=== PATIENT | female | born 1965 | race Caucasian/White ===

== ENCOUNTER 2017-10-08 10:52 | Emergency (ER) | payer OTHER ==
[2017-10-08] MEDS ORDERED: Aspirin Low Dose CHEW TAB* 81 MG PO ONE (11:16)
[2017-10-08] MEDS ORDERED: Ondansetron INJ* 2 MG/ML VIAL IV ONE (11:46)
[2017-10-08] MEDS ORDERED: Morphine INJ* 4 MG/ML 1 ML CARPUJECT IV ONE (11:47)
[2017-10-08 11:48] LABS: ABS Basophils 0.1 10^3/ul (0-0.2); ABS Eosinophils 0.1 10^3/ul (0-0.6); ABS Lymphocytes 2.3 10^3/ul (1.0-4.8); ABS Monocytes 0.4 10^3/ul (0-0.8); ABS Neutrophils 2.3 10^3/ul (1.5-7.7); ABS Nucleated RBC 0 10^3/ul; Eosinophil % 1.3 % (0-6); Hematocrit 39 % (35-47); Hemoglobin 13.1 g/dl (12.0-16.0); Lymphocyte % 45.1 % (25-47); Mean Corpuscular HGB Conc 34 g/dl (31-36); Mean Corpuscular Hemoglobin 29 pg (27-31); Mean Corpuscular Volume 87 fL (80-97); Mean Platelet Volume 7 um3 (7.4-10.4); Nucleated Red Blood Cells % 0; Platelet Count 368 10^3/ul (150-450); Red Blood Count 4.47 10^6/ul (4.0-5.4); Red Cell Distribution Width 15 % (10.5-15); White Blood Count 5.2 10^3/ul (3.5-10.8)
[2017-10-08 12:23] LABS: EGFR Non-African American 83.1 (>60)
--- NOTE | 2017-10-08 12:35 | RAD ---
HISTORY: Chest pain COMPARISONS: December 26, 2010 VIEWS: 1: frontal portable view of the chest at 12:10 PM FINDINGS: LINES AND TUBES: None. CARDIOMEDIASTINAL SILHOUETTE: The cardiomediastinal silhouette is normal for portable technique. PLEURA: The costophrenic angles are sharp. No pleural abnormalities are noted. LUNG PARENCHYMA: The lungs are clear. ABDOMEN: The upper abdomen is clear. There is no subphrenic gas. BONES AND SOFT TISSUES: No bone or soft tissue abnormalities are noted. IMPRESSION: NO ACTIVE CARDIOPULMONARY DISEASE.
[2017-10-08] MEDS ORDERED: HYDROcodone/ACETAMIN 5-325 MG* 1 TAB PO ONE (15:46)
[2017-10-08 15:56] VITALS: BP 140/82
--- NOTE | 2017-10-08 22:35 | ED ---
Jeffery Lerma Stephanie, scribed for Lizzeth Romero MD on 10/08/17 at 1141 . HPI Chest Pain - HPI Summary HPI Summary: The pt is a 51 y/o F presenting to the ED with c/o chest pain that began this morning. The pt woke up this morning with pain and swelling over the L chest, below the breast. She describes the pain as sharp pain that is worse with movement and feels like a rib is poking her on the left chest. The pt has previously had a biopsy of the L breast which she wonders if this is the cause of the pain, but the biopsy was more than a year ago. The pt medicated with prescribed Vicodin [facility]. Symptoms include abd pain, nausea, diaphoresis and SOB. The pt denies vomiting. Pt was first interviewed in [facility] area in the ED and did not provide hx of use of cocaine on 10/06/17 until after she spoke with the nurse in private. Pt states she does not usually use cocaine. - History of Current Complaint Chief Complaint: EDChestPainROMI Time Seen by Provider: 10/08/17 11:14 Hx Obtained From: Patient, Family/Statistical Machine Servicer - Onset/Duration: Started Hours Ago - upon waking this morning Timing: Constant Initial Severity: Severe Current Severity: Severe Pain Intensity: 8 Pain Scale Used: 0-10 Numeric Chest Pain Location: Discrete at: - L side of chest, Left Anterior Chest Pain Radiates: No Character: Sharp/Stabbing Aggravating Factor(s): Position, Movement Alleviating Factor(s): Nothing Associated Signs and Symptoms: Positive: Chest Pain - L side of chest and below breast, Shortness of Breath, Nausea, Abdominal Pain, Edema. Negative: Vomiting Related History: Similar Episode/Dx as: - pain that began about 1 year ago related to left breast - Allergy/Home Medications Allergies/Adverse Reactions: Allergies Allergy/AdvReac Type Severity Reaction Status Date / Time No Known Allergies Allergy Verified 10/08/17 11:01 PMH/Surg Hx/FS Hx/Imm Hx Previously Healthy: No Cardiovascular History: Denies: Other Cardiovascular Problems/Disorders Respiratory History: Denies: Other Respiratory Problems/Disorders History: Denies: Other Problems/Disorders Musculoskeletal History: Reports: Hx Arthritis - SPINE Sensory History: Reports: Hx Contacts or Glasses - READING GLASSES Denies: Hx Hearing Aid Opthamlomology History: Reports: Hx Contacts or Glasses - READING GLASSES Neurological History: Denies: Other Neuro Impairments/Disorders Psychiatric History: Reports: Hx Anxiety - NO MEDS - Cancer History Hx Chemotherapy: No Hx Radiation Therapy: No - Surgical History Surgery Procedure, Year, and Place: 2007 D&C- [facility]. 2015, CERVICAL POLYPS, [facility] Hx Anesthesia Reactions: No Infectious Disease History: No Infectious Disease History: Denies: Traveled Outside the [place] in Last 30 Days - Family History Known Family History: Positive: Other - Bladder cancer in brother. Denies cardiac disease in family - Social History Lives: With Family Alcohol Use: Occasionally Alcohol Amount: 5 Hx Substance Use: Yes Substance Use Type: Reports: Cocaine, Marijuana Substance Use Comment - Amount & Last Used: 2 week -08/01/17 Hx Tobacco Use: Yes Smoking Status (MU): Heavy Every Day Tobacco Smoker Type: Cigarettes Amount Used/How Often: 1 PPD FOR 30 YRS Length of Time of Smoking/Using Tobacco: 30 YRS Have You Smoked in the Last Year: Yes Review of Systems Constitutional: Negative Positive: Chest Pain Positive: Shortness Of Breath Positive: Abdominal Pain, Nausea. Negative: Vomiting Skin: Negative Neurological: Negative Psychological: Normal All Other Systems Reviewed And Are Negative: Yes Physical Exam Triage Information Reviewed: Yes Vital Signs On Initial Exam: Initial Vitals Temp Pulse Resp BP Pulse Ox 97.7 F 79 16 151/97 97 10/08/17 11:02 10/08/17 11:02 10/08/17 11:02 10/08/17 11:02 10/08/17 11:02 Vital Signs Reviewed: Yes Appearance: Positive: Well-Nourished, Ill-Appearing, Pain Distress Skin: Positive: Warm, Skin Color Reflects Adequate Perfusion Head/Face: Positive: Normal Head/Face Inspection Eyes: Positive: Conjunctiva Clear ENT: Positive: Normal ENT inspection Neck: Positive: Supple Respiratory/Lung Sounds: Positive: Clear to Auscultation, Breath Sounds Present , Other - no respiratory distress; Bilateral breasts without masses, no dimpling , no nipple discharge Cardiovascular: Positive: RRR, Pulses are Symmetrical in both Upper and Lower Extremities - pulses nml, brisk capillary refill Abdomen Description: Positive: Nontender, Soft Bowel Sounds: Positive: Present Musculoskeletal: Positive: Strength/ROM Intact - no calf tenderness, no edema Neurological: Positive: Alert, Oriented to Person Place, Time, CN Intact II-III , Other - Motor function 5/5, sensation intact, gait WNL, Psychiatric: Positive: Normal Diagnostics - Vital Signs Vital Signs Temp Pulse Resp BP Pulse Ox 10/08/17 11:02 97.7 F 79 16 151/97 97 - Laboratory Lab Results: Lab Results 10/08/17 10/08/17 10/08/17 Range/Units 11:40 11:40 11:40 WBC (3.5-10.8) 10^3/ul RBC (4.0-5.4) 10^6/ul Hgb (12.0-16.0) g/dl Hct (35-47) % MCV (80-97) fL MCH (27-31) pg MCHC (31-36) g/dl RDW (10.5-15) % Plt Count (150-450) 10^3/ul MPV (7.4-10.4) um3 Neut % (Auto) (38-83) % Lymph % (Auto) (25-47) % [place] % (Auto) (1-9) % Eos % (Auto) (0-6) % Baso % (Auto) (0-2) % Absolute Neuts (auto) (1.5-7.7) 10^3/ul Absolute Lymphs (auto) (1.0-4.8) 10^3/ul Absolute Monos (auto) (0-0.8) 10^3/ul Absolute Eos (auto) (0-0.6) 10^3/ul Absolute Basos (auto) (0-0.2) 10^3/ul Absolute Nucleated RBC 10^3/ul Nucleated RBC % INR (Anticoag Therapy) 0.90 (0.77-1.02) APTT 31.1 (26.0-36.3) seconds D-Dimer, Quantitative < 200 (Less Than 230) ng/mL Sodium 134 (133-145) mmol/L Potassium 3.7 (3.5-5.0) mmol/L Chloride 102 (101-111) mmol/L Carbon Dioxide 26 (22-32) mmol/L Anion Gap 6 (2-11) mmol/L BUN 10 (6-24) mg/dL Creatinine 0.74 (0.51-0.95) mg/dL Est GFR ( Amer) 106.8 (>60) Est GFR (Non-Af Amer) 83.1 (>60) BUN/Creatinine Ratio 13.5 (8-20) Glucose 134 H (70-100) mg/dL Lactic Acid (0.5-2.0) mmol/L Calcium 9.7 (8.6-10.3) mg/dL Magnesium 2.0 (1.9-2.7) mg/dL Total Bilirubin 0.20 (0.2-1.0) mg/dL AST 11 L (13-39) U/L ALT 7 (7-52) U/L Alkaline Phosphatase 84 (34-104) U/L Total Creatine Kinase 55 (10-223) U/L CK-MB (CK-2) 1.1 (0.6-6.3) ng/mL Troponin I 0.00 (<0.04) ng/mL B-Natriuretic Peptide 17 ( - 100) pg/mL Total Protein 7.1 (6.4-8.9) g/dL Albumin 4.0 (3.2-5.2) g/dL Globulin 3.1 (2-4) g/dL Albumin/Globulin Ratio 1.3 (1-3) TSH 1.75 (0.34-5.60) mcIU/mL Thyroxine (T4) 8.54 (6.09-12.23) mcg/mL 10/08/17 10/08/17 10/08/17 Range/Units 11:40 11:40 14:06 WBC 5.2 (3.5-10.8) 10^3/ul RBC 4.47 (4.0-5.4) 10^6/ul Hgb 13.1 (12.0-16.0) g/dl Hct 39 (35-47) % MCV 87 (80-97) fL MCH 29 (27-31) pg MCHC 34 (31-36) g/dl RDW 15 (10.5-15) % Plt Count 368 (150-450) 10^3/ul MPV 7 L (7.4-10.4) um3 Neut % (Auto) 45.0 (38-83) % Lymph % (Auto) 45.1 (25-47) % [place] % (Auto) 7.2 (1-9) % Eos % (Auto) 1.3 (0-6) % Baso % (Auto) 1.4 (0-2) % Absolute Neuts (auto) 2.3 (1.5-7.7) 10^3/ul Absolute Lymphs (auto) 2.3 (1.0-4.8) 10^3/ul Absolute Monos (auto) 0.4 (0-0.8) 10^3/ul Absolute Eos (auto) 0.1 (0-0.6) 10^3/ul Absolute Basos (auto) 0.1 (0-0.2) 10^3/ul Absolute Nucleated RBC 0 10^3/ul Nucleated RBC % 0 INR (Anticoag Therapy) (0.77-1.02) APTT (26.0-36.3) seconds D-Dimer, Quantitative (Less Than 230) ng/mL Sodium (133-145) mmol/L Potassium (3.5-5.0) mmol/L Chloride (101-111) mmol/L Carbon Dioxide (22-32) mmol/L Anion Gap (2-11) mmol/L BUN (6-24) mg/dL Creatinine (0.51-0.95) mg/dL Est GFR ( Amer) (>60) Est GFR (Non-Af Amer) (>60) BUN/Creatinine Ratio (8-20) Glucose (70-100) mg/dL Lactic Acid 1.4 (0.5-2.0) mmol/L Calcium (8.6-10.3) mg/dL Magnesium (1.9-2.7) mg/dL Total Bilirubin (0.2-1.0) mg/dL AST (13-39) U/L ALT (7-52) U/L Alkaline Phosphatase (34-104) U/L Total Creatine Kinase (10-223) U/L CK-MB (CK-2) (0.6-6.3) ng/mL Troponin I 0.00 (<0.04) ng/mL B-Natriuretic Peptide ( - 100) pg/mL Total Protein (6.4-8.9) g/dL Albumin (3.2-5.2) g/dL Globulin (2-4) g/dL Albumin/Globulin Ratio (1-3) TSH (0.34-5.60) mcIU/mL Thyroxine (T4) (6.09-12.23) mcg/mL Result Diagrams: 10/08/17 11:40 10/08/17 11:40 Lab Statement: Any lab studies that have been ordered have been reviewed, and results considered in the medical decision making process. - Radiology CXR Xray Interpretation: No Acute Changes Radiology Interpretation Completed By: Radiologist - NO ACTIVE CARDIOPULMONARY DISEASE. - EKG 11:13 EKG Rhythm: Sinus Rhythm - [address] Segment: Non-Specific Ectopy: None EKG Interpretation: nml AV IV CT, nml QTc, nml, axis, no acute changes. Non- STEMI EKG Comparison: No Significant Change - c/w 04/13/15 Chest Pain Course/Dx - Course Course Of Treatment: Trop x 2 normal, EKG nonSTEMI. The patient is diagnosed with chest pain and tobacco abuse disorder. She will be discharged home. Pt dispensed norco x 2 for home use, since she used more than she should have of her usual norco prescribed for chronic back pain. - Chest Pain Differential Diagnosis/HQI/PQRI: Acute MA, ACS, Angina, Chest Wall, Lower Respiratory Infection, Pulmonary Embolism - Diagnoses Provider Diagnoses: Chest pain, Substance abuse, Tobacco abuse disorder Discharge - Discharge Plan Condition: Fair Disposition: HOME Patient Education Materials: Chest Pain (ED), How to Stop Smoking (ED) Referrals: Keven Katz MD [Primary Care Provider] - Additional Instructions: RETURN TO URGENT CARE FOR ANY NEW OR WORSENING SYMPTOMS. The documentation as recorded by the Jeffery munguia Stephanie accurately reflects the service I personally performed and the decisions made by , Lizzeth Romero MD.
== END 2017-10-08 15:54 | disposition home or self-care (01) ==
LOC: ED 10:52
DX: R07.9 Chest pain, unspecified (principal); F14.10 Cocaine abuse, uncomplicated; F12.10 Cannabis abuse, uncomplicated; F17.210 Nicotine dependence, cigarettes, uncomplicated
CPT/HCPCS: 36415; 71045; 80053; 82550; 82553; 83605; 83735; 83880; 84436; 84443; 84484; 85025; 85379; 85610; 85730; 93005; 96374; 96375; 99283; A9270-GY; J2270; J2405

== ENCOUNTER 2018-10-10 13:33 | Emergency (ER) | payer OTHER ==
--- OUTSIDE RECORDS SUMMARY | 2018-10-10 13:52 | XMS REPORT | Continuity of Care Document ---
:1965 External Reference #:[id number] Author Name Ashely Sheffield Care Team Providers Name Role Phone Keven Katz MD Primary Care Physician Unavailable Payers Type Date Identification Numbers Payment Provider Subscriber Effective: 2017 Policy Number: [id number] Blyn Debbie Connelly Group Number: [id number] [address] PayID: [id number] [place] [address] Effective: 2013 Policy Number: [id number] [employer] Shahzad Ferreira Expires: 2016 Group Number: [id number] [address] PayID: [id number] [place] [address] Expires: 2017 Policy Number: [id number] Medicaid Debbie Connelly Group Name: 1 1 [address] PayID: [id number] [place] [address] Advance Directives Type Date Description Status Comment Other Directive 05/16/2017 Health Care Agent Current and Verified Problems Date Description Provider Status Onset: 05/02/2017 Low back pain Keven Katz M.D. Active Onset: 05/02/2017 Neck pain Keven Katz M.D. Active Onset: 06/17/2017 Mild recurrent major depression Keven Katz M.D. Active Onset: 05/26/2018 Acute gastritis Keven Katz M.D. Active Onset: 09/05/2018 Sprain of shoulder and upper arm Otoniel Abdalla MD Active Onset: 08/14/2018 Essential hypertension Keven Katz M.D. Active Onset: 08/14/2018 Anxiety state Keven Katz M.D. Active Family History Date Family Member(s) Problem(s) Comments General Diabetes General Cancer Siblings 1 bladder cancer Social History Type Date Description Comments Sex Unknown Marital Status 2 Times living with Lives With spouse Occupation Unemployed Tobacco Use Start: Unknown Current Cigarette started at about Smoker 1 Pack Daily age 15 Smoking Status Reviewed: 09/26/18 Current Cigarette started at about Smoker 1 Pack Daily age 15 ETOH Use Denies alcohol use Tobacco Use Start: Unknown Heavy tobacco smoker (more than 10 cigarettes/day) Recreational Drug Use Denies Drug Use Exercise Type/Frequency Does not exercise Allergies, Adverse Reactions, Alerts Description No Known Drug Allergies Medications Medication Date Status Form Strength Qnty SIG Indications Ordering Provider Amitriptyline 09/26 Active Tablets 25mg 60tab one by mouth M54.5 Silvia HCL s in the Ricardo, evening for one week, then 2 tabs at bedtime Cartia XT 09/26 Active Caps ER 240mg 30cap one po daily I10 24HR s MD Davion Sertraline HCL 09/26 Active Tablets 100mg 30tab 1 by mouth F41.9 s every day MD Davion Hydrocodone-William 09/02 Active Tablets 5-325mg 120ta 1 tab every M54.5 taminophen bs 6h as needed Davion for pain Flonase Allergy 06/11 Active Suspension 50mcg/Act 15.80 one spray in J06.9 Keven Relief 0ml each nostril Pachikara 1-2 times , M.D. daily. Acetaminophen 05/26 Active Tablets 500mg 180ta 2 tab 3 M54.5 Keven /2017 bs times daily Pachikara as needed , M.D. Pantoprazole 05/[address] 40mg 30tab 1 in the K29.00 Keven Sodium s morning Pachikara empty , M.D. stomach Bupropion HCL 06/17 Active Tablets ER 300mg 30tab take one F33.0 [place] ER (XL) 24HR s tablet by Pachikara mouth every , M.D. morning Cartia XT 09/02 Hx Caps ER 180mg 30cap once daily I10 24HR s Sterling - Cassius 09/26 Losartan 08/14 Hx Tablets 50mg 30tab 1 by mouth I10 s every day Sterling - SarathDTom 09/02 Sertraline HCL 08/14 Hx Tablets 50mg 30tab Take One F41.9 s Tablet By Pachikara - Mouth Every , M.D. Metronidazole 07/11 Hx Gel 0.75% 45gm one applicator Gilda, - per vagina MD 09/02 daily x days Guaifenesin ER 06/11 Hx Tablets ER 1200mg 30tab Take by J06.9 Shmuel 12HR s mouth every DTom Argueta, - morning and M.D.,FACP 09/02 evening not taking cough syrup. Guaifenesin-Cod 06/11 Hx Solution 100-10mg/ 1000m take 15 J06.9 Shelly Jamison ei 5ML l milliliters D. Ellie, - every 4 M.D.,FACP 09/02 hours needed for cough at night. Hydrocodone-William 02/12 Hx Tablets 5-325mg 60tab 1 tab every M54.5 [place] taminophen s 12h as Pachikara - needed. , M.D. 09/02 Prednisone 01/08 Hx Tablets 5mg 28tab taper dose R05 Lesley s start with 7 Montgomery, - tabs (35mg) PILOT CAN ROUTER 02/12 and by one tab each in the morning, 6,5,4,3,2,1 Bupropion HCL 12/16 Hx Tablets ER 150mg 30tab once daily F33.0 [place] ER (XL) 24HR s in the Pachikara - morning with , M.D. 02/12 Tramadol HCL 12/16 Hx Tablets 50mg 30tab three times M54.5 s a day as Pachikara - needed , M.D. 02/12 Meloxicam 11/14 Hx Tablets 15mg 60tab 1 by mouth S46.012A Lesley /2017 s every day Montgomery, - for pain. PILOT CAN ROUTER 02/12 take with food. do not take ibuprofen while taking this Diclofenac 11/[address] 75mg 60tab take 1 S46.012A Lesley Sodium s tablet twice Montgomery, - a day with PILOT CAN ROUTER 01/08 food Bupropion HCL 05/16 Hx Tablets ER 150mg 30tab one by mouth M54.5 [place] ER ( 12HR s every day Pachikara Det) - , M.D. 06/17 Clindamycin HCL 05/15 Hx Capsules 150mg 40cap four times a Keven /2016 s day x 10 Pachikara - days , M.D. 08/08 Ibuprofen Hx Capsules 200mg as needed Unknown /0000 - 02/12 Acetaminophen Hx Tablets 500mg 2 tabs 3 Unknown Extra Strength /0000 times daily - as needed 03/20 for pain Hydrocodone-William Hx Tablets 5-325mg 90tab take one [place] taminophen / s tablet by Pachikara - mouth every , M.D. 12/16 8 hours needed; maximum daily dose=3 Ibuprofen Hx Capsules 200mg as needed Unknown /0000 - 05/26 Medications Administered in Office Medication Date Status Form Strength Qnty SIG Indications Ordering Provider Triamcinolone 09/05/ Administered Injection Zaneb (Kenalog) 2017 MD Lianne Triamcinolone 11/14/ Administered Injection Lorraine (Kenalog) 2017 WEN Torres Immunizations CPT Code Status Date Vaccine Lot # [id number] Given 07/03/2018 Influenza Virus Vaccine, Quadrivalent, Split, [id number] Preservative Free [id number] Given 06/17/2017 Influenza Virus Vaccine, Quadrivalent, Split, [id number] Preservative Free Vital Signs Date Vital Result Comment 09/26/2018 11:01am Height 64 inches 5'4" Weight 143.00 lb Heart Rate 68 /min BP Systolic Sitting 150 mmHg BP Diastolic Sitting 82 mmHg Body Temperature 97.9 F O2 % BldC Oximetry 96 % BMI (Body Mass Index) 24.5 kg/m2 09/05/2018 8:57am Height 64 inches 5'4" Weight 146.00 lb BP Systolic 134 mmHg BP Diastolic 70 mmHg Respiratory Rate 18 /min Pain Level 9 BMI (Body Mass Index) 25.1 kg/m2 09/02/2018 1:21pm Height 64 inches 5'4" Weight 146.00 lb Heart Rate 73 /min BP Systolic 154 mmHg BP Diastolic 92 mmHg Body Temperature 98.1 F O2 % BldC Oximetry 96 % BMI (Body Mass Index) 25.1 kg/m2 08/14/2018 3:43pm Height 64 inches 5'4" Weight 144.00 lb Heart Rate 84 /min BP Systolic Sitting 150 mmHg L arm BP Diastolic Sitting 100 mmHg L arm BP Systolic Standing 160 mmHg R arm BP Diastolic Standing 105 mmHg R arm Body Temperature 97.0 F O2 % BldC Oximetry 98 % BMI (Body Mass Index) 24.7 kg/m2 07/03/2018 1:08pm Height 64 inches 5'4" Weight 142.00 lb Heart Rate 72 /min BP Systolic 142 mmHg BP Diastolic 98 mmHg O2 % BldC Oximetry 97 % BMI (Body Mass Index) 24.4 kg/m2 06/11/2018 8:47am Height 64 inches 5'4" Weight 143.00 lb Heart Rate 73 /min BP Systolic Sitting 150 mmHg BP Diastolic Sitting 88 mmHg Body Temperature 97.6 F O2 % BldC Oximetry 97 % BMI (Body Mass Index) 24.5 kg/m2 05/26/2018 8:10am Height 64 inches 5'4" Weight 144.00 lb Heart Rate 69 /min BP Systolic Sitting 160 mmHg BP Diastolic Sitting 98 mmHg Body Temperature 96.3 F O2 % BldC Oximetry 98 % BMI (Body Mass Index) 24.7 kg/m2 03/20/2018 8:31am Height 64 inches 5'4" Weight 140.00 lb Heart Rate 77 /min BP Systolic Sitting 124 mmHg BP Diastolic Sitting 80 mmHg Body Temperature 96.7 F O2 % BldC Oximetry 97 % BMI (Body Mass Index) 24.0 kg/m2 02/12/2018 9:40am Height 64 inches 5'4" Weight 149.00 lb Heart Rate 83 /min BP Systolic 160 mmHg BP Diastolic 95 mmHg O2 % BldC Oximetry 98 % BMI (Body Mass Index) 25.6 kg/m2 01/08/2018 9:54am Weight 144.00 lb Heart Rate 69 /min BP Systolic 132 mmHg BP Diastolic 85 mmHg Body Temperature 97.9 F O2 % BldC Oximetry 96 % 12/16/2017 12:55pm Height 66 inches 5'6" Weight 144.38 lb Heart Rate 68 /min BP Systolic Sitting 124 mmHg BP Diastolic Sitting 82 mmHg Body Temperature 98.2 F O2 % BldC Oximetry 98 % BMI (Body Mass Index) 23.3 kg/m2 11/14/2017 10:23am Height 66 inches 5'6" Weight 147.00 lb Heart Rate 68 /min BP Systolic 136 mmHg BP Diastolic 80 mmHg Respiratory Rate 18 /min Body Temperature 97.6 F Pain Level 7 BMI (Body Mass Index) 23.7 kg/m2 11/04/2017 3:18pm Weight 143.00 lb Heart Rate 71 /min BP Systolic Sitting 140 mmHg BP Diastolic Sitting 80 mmHg Body Temperature 97.9 F O2 % BldC Oximetry 97 % 09/20/2017 2:39pm Weight 143.00 lb Heart Rate 68 /min BP Systolic Sitting 138 mmHg BP Diastolic Sitting 88 mmHg Body Temperature 96.0 F O2 % BldC Oximetry 98 % 08/08/2017 9:42am Height 63.5 inches 5'3.50" Weight 146.12 lb Heart Rate 64 /min BP Systolic 152 mmHg BP Diastolic 90 mmHg Body Temperature 97.5 F O2 % BldC Oximetry 99 % BMI (Body Mass Index) 25.5 kg/m2 06/17/2017 2:56pm Height 63.5 inches 5'3.50" Weight 140.25 lb Heart Rate 81 /min BP Systolic 132 mmHg BP Diastolic 84 mmHg Body Temperature 97.8 F O2 % BldC Oximetry 98 % BMI (Body Mass Index) 24.5 kg/m2 05/16/2017 11:06am Height 63.5 inches 5'3.50" Weight 143.00 lb Heart Rate 73 /min BP Systolic Lying Down 142 mmHg repeated due to high reading BP Diastolic Lying Down 86 mmHg repeated due to high reading Body Temperature 97.1 F O2 % BldC Oximetry 98 % BMI (Body Mass Index) 24.9 kg/m2 05/16/2017 9:33am Height 63.5 inches 5'3.50" Weight 143.25 lb Heart Rate 73 /min BP Systolic Sitting 160 mmHg BP Diastolic Sitting 94 mmHg Body Temperature 97.1 F O2 % BldC Oximetry 98 % BMI (Body Mass Index) 25.0 kg/m2 05/02/2017 8:12am Height 64 inches 5'4" Weight 143.00 lb Heart Rate 70 /min BP Systolic 136 mmHg BP Diastolic 84 mmHg Body Temperature 97.8 F O2 % BldC Oximetry 99 % BMI (Body Mass Index) 24.5 kg/m2 02/02/2016 1:57pm Height 64 inches 5'4" Weight 124.00 lb Heart Rate 69 /min BP Systolic 132 mmHg BP Diastolic 80 mmHg Pain Level 10 BMI (Body Mass Index) 21.3 kg/m2 Results Test Date Facility Test Result H/L Range Note Laboratory test 07/03/2018 [facility] Cytology SEE RESULT [address] [place] [address] [phone] Drug Abuse 20 05/26/2018 [facility] Urine Amphetamine Negative [address] ng/[place] [address] [phone] Urine Barbiturates Negative ng/mL 3 Urine Benzodiazepines Negative ng/mL 4 Urine Cocaine Negative ng/mL 5 Urine Phencyclidine Negative ng/mL Cutoff: 25 Urine Tetrahydrocannabinol Negative ng/mL Cutoff: 50 6 Creatinine, Urine 7.9 mg/dL Specific [place] 1.001 7 pH 6.9 Oxidants Negative 8 Adulterants Comment Normal Codeine, Ur Not Detected ng/mL Cutoff: 25 9 Uhwqaqx-5-nolk-glucuronide, Ur Not Detected ng/mL 10 Morphine, Ur Not Detected ng/mL Cutoff: 25 11 Lpsglumc-3-clot-glucuronide, U Not Detected ng/mL 12 6-monoacetylmorphine, Ur Not Detected ng/mL Cutoff: 25 13 Hydrocodone, Ur Present ng/mL Abnormal Cutoff: 25 14 Norhydrocodone, Ur Present ng/mL Abnormal Cutoff: 25 15 Dihydrocodeine, Ur Not Detected ng/mL Cutoff: 25 16 Hydromorphone, Ur Not Detected ng/mL Cutoff: 25 17 Niebyslgjkqsq4ppqymhukzibotns Not Detected ng/mL 18 Oxycodone, Ur Not Detected ng/mL Cutoff: 25 19 Noroxycodone, Ur Not Detected ng/mL Cutoff: 25 20 Oxymorphone, Ur Not Detected ng/mL Cutoff: 25 21 Rjbwcepfyep-7-mecd-glucuronide Not Detected ng/mL 22 Noroxymorphone, Ur Not Detected ng/mL Cutoff: 25 23 Fentanyl, Ur Not Detected ng/mL Cutoff: 2 24 Norfentanyl, Ur Not Detected ng/mL Cutoff: 2 25 Meperidine, Ur Not Detected ng/mL Cutoff: 25 26 Normeperidine, Ur Not Detected ng/mL Cutoff: 25 27 Naloxone, Ur Not Detected ng/mL Cutoff: 25 28 Yuwejyvc-5-jxby-glucuronide, U Not Detected ng/mL 29 Methadone, Ur Not Detected ng/mL Cutoff: 25 30 Eddp, Ur Not Detected ng/mL Cutoff: 25 31 Propoxyphene, Ur Not Detected ng/mL Cutoff: 25 32 Norpropoxyphene, Ur Not Detected ng/mL Cutoff: 25 33 Tramadol, Ur Not Detected ng/mL Cutoff: 25 34 O-desmethyltramadol, Ur Not Detected ng/mL Cutoff: 25 35 Tapentadol, Ur Not Detected ng/mL Cutoff: 25 36 N-desmethyltapentadol, Ur Not Detected ng/mL Cutoff: 50 37 Bteiekzpwj-ldvp-iutkgoruust, U Not Detected ng/mL 38 Buprenorphine, Ur Not Detected ng/mL Cutoff: 5 39 Norbuprenorphine, Ur Not Detected ng/mL Cutoff: 5 40 Norbuprenorphine glucuronide Not Detected ng/mL Cutoff: 20 41 Opioid Interpretation See Comment 42 Laboratory test 10/08/2017 [facility] Troponin-I (TnI) 0.00 ng/ mL <0.[address] [place] [address] [phone] Laboratory test 10/08/2017 [facility] B-Type 17 pg/mL [address] [place] [address] Peptide BNP [phone] Lactic Acid 1.4 mmol/L N 0.5-2.0 44 Inr/Protime 10/08/2017 [facility] Inr 0.90 N 0.77-1.[address] [place] [address] [phone] Laboratory test 10/08/2017 [facility] Partial 31.1 seconds N 26.0-36.[address] [place] [address] PTT [phone] D Dimer Quantitative < 200 ng/mL N Less Than 230 45 CBC Auto Diff 10/08/2017 [facility] White Blood 5.2 10^3/uL N 3.5-10.[address] [place] [address] [phone] Red Blood Count 4.47 10^6/uL N 4.0-5.4 Hemoglobin 13.1 g/dL N 12.0-16.0 Hematocrit 39 % N 35-47 Mean Corpuscular Volume 87 fL N 80-97 Mean Corpuscular Hemoglobin 29 pg N 27-31 Mean Corpuscular HGB Conc 34 g/dL N 31-36 Red Cell Distribution Width 15 % N 10.5-15 Platelet Count 368 10^3/uL N 150-450 Mean Platelet Volume 7 um3 Low 7.4-10.4 Abs Neutrophils 2.3 10^3/uL N 1.5-7.7 Abs Lymphocytes 2.3 10^3/uL N 1.0-4.8 Abs Monocytes 0.4 10^3/uL N 0-0.8 Abs Eosinophils 0.1 10^3/uL N 0-0.6 Abs Basophils 0.1 10^3/uL N 0-0.2 Abs Nucleated RBC 0 10^3/uL Granulocyte % 45.0 % N 38-83 Lymphocyte % 45.1 % N 25-47 Monocyte % 7.2 % N 1-9 Eosinophil % 1.3 % N 0-6 Basophil % 1.4 % N 0-2 Nucleated Red Blood Cells % 0 Laboratory test 10/08/2017 [facility] Troponin-I (TnI) 0.00 ng/ mL <0.04 finding [address] [place] [address] [phone] CKMB 10/08/2017 [facility] CKMB ng/mL 1.1 ng/mL N 0.6-6.3 [place] [address] [phone] Laboratory test 10/08/2017 [facility] Magnesium 2.0 mg/dL N 1.9-2.7 [place] [address] [phone] Creatine Kinase(CK) 55 U/L N 10-223 TSH (Thyroid Stim Horm) 1.75 mcIU/mL N 0.34-5.60 Comp Metabolic Panel 10/08/2017 [facility] Sodium 134 mmol/L N [address] [place] [address] [phone] Potassium 3.7 mmol/L N 3.5-5.0 Chloride 102 mmol/L N 101-111 Co2 Carbon Dioxide 26 mmol/L N 22-32 Anion Gap 6 mmol/L N 2-11 Glucose 134 mg/dL High 70-100 Blood Urea Nitrogen 10 mg/dL N 6-24 Creatinine 0.74 mg/dL N 0.51-0.95 BUN/Creatinine Ratio 13.5 N 8-20 Calcium 9.7 mg/dL N 8.6-10.3 Total Protein 7.1 g/dL N 6.4-8.9 Albumin 4.0 g/dL N 3.2-5.2 Globulin 3.1 g/dL N 2-4 Albumin/Globulin Ratio 1.3 N 1-3 Total Bilirubin 0.20 mg/dL N 0.2-1.0 Alkaline Phosphatase 84 U/L N 34-104 Alt 7 U/L N 7-52 Ast 11 U/L Low 13-39 Egfr Non- 83.1 >60 Egfr 106.8 >60 46 Laboratory 10/08/2017 [facility] Thyroxine 8.54 N 6.09-12.23 test finding 101 g/[place] [address] [phone] Laboratory 08/01/2017 [facility] Cytology SEE RESULT 47, [address] [employer] [place] [address] [phone] Comp Metabolic 05/04/2017 [facility] Sodium 135 mmol/L N 133- [address] [place] [address] [phone] Potassium 4.4 mmol/L N 3.5-5.0 Chloride 104 mmol/L N 101-111 Co2 Carbon Dioxide 27 mmol/L N 22-32 Anion Gap 4 mmol/L N 2-11 Glucose 78 mg/dL N 70-100 Blood Urea Nitrogen 13 mg/dL N 6-24 Creatinine 0.68 mg/dL N 0.51-0.95 BUN/Creatinine Ratio 19.1 N 8-20 Calcium 9.0 mg/dL N 8.6-10.3 Total Protein 6.6 g/dL N 6.4-8.9 Albumin 3.8 g/dL N 3.2-5.2 Globulin 2.8 g/dL N 2-4 Albumin/Globulin Ratio 1.4 N 1-3 Total Bilirubin 0.30 mg/dL N 0.2-1.0 Alkaline Phosphatase 71 U/L N 34-104 Alt 9 U/L N 7-52 Ast 13 U/L N 13-39 Egfr Non- 91.6 N >60 Egfr 117.8 N >60 49 Lipid Profile 05/04/2017 [facility] Triglycerides 238 mg/dL N 50 (Trig/Chol/HDL) [address] [place] [address] [phone] Cholesterol 214 mg/dL N 51 HDL Cholesterol 42.3 mg/dL N 52 LDL Cholesterol 124 mg/dL N 53 Drug Abuse 05/02/2017 [facility] Urine Amphetamine Negative ng/ mL N 54, 55 20 Urine [address] [place] [address] [phone] Urine Barbiturates Negative ng/mL N 56 Urine Benzodiazepines Negative ng/mL N 57 Urine Cocaine Negative ng/mL N 58 Urine Phencyclidine Negative ng/mL N Cutoff: 25 Urine Tetrahydrocannabinol Presumptive Posi <SEE NOTE> ng/mL N Cutoff: 50 59 Creatinine, Urine 51.4 mg/dL N Specific [place] 1.005 N pH 6.9 N Oxidants Negative N 60 Adulterants Comment Normal N Codeine, Ur Not Detected ng/mL N Cutoff: 25 61 Wntixxo-2-bhmj-glucuronide, Ur Not Detected ng/mL N 62 Morphine, Ur Not Detected ng/mL N Cutoff: 25 63 Oimkvfvo-3-tklv-glucuronide, U Not Detected ng/mL N 64 6-monoacetylmorphine, Ur Not Detected ng/mL N Cutoff: 25 65 Hydrocodone, Ur Not Detected ng/mL N Cutoff: 25 66 Norhydrocodone, Ur Not Detected ng/mL N Cutoff: 25 67 Dihydrocodeine, Ur Not Detected ng/mL N Cutoff: 25 68 Hydromorphone, Ur Not Detected ng/mL N Cutoff: 25 69 Hszjouditkwaf4pwxynwbnrtuoxzn Not Detected ng/mL N 70 Oxycodone, Ur Not Detected ng/mL N Cutoff: 25 71 Noroxycodone, Ur Not Detected ng/mL N Cutoff: 25 72 Oxymorphone, Ur Not Detected ng/mL N Cutoff: 25 73 Ezqtyltrfzd-6-xikl-glucuronide Present ng/mL N 74 Noroxymorphone, Ur Not Detected ng/mL N Cutoff: 25 75 Fentanyl, Ur Not Detected ng/mL N Cutoff: 2 76 Norfentanyl, Ur Not Detected ng/mL N Cutoff: 2 77 Meperidine, Ur Not Detected ng/mL N Cutoff: 25 78 Normeperidine, Ur Not Detected ng/mL N Cutoff: 25 79 Naloxone, Ur Not Detected ng/mL N Cutoff: 25 80 Rimwlzwp-8-ecbb-glucuronide, U Not Detected ng/mL N 81 Methadone, Ur Not Detected ng/mL N Cutoff: 25 82 Eddp, Ur Not Detected ng/mL N Cutoff: 25 83 Propoxyphene, Ur Not Detected ng/mL N Cutoff: 25 84 Norpropoxyphene, Ur Not Detected ng/mL N Cutoff: 25 85 Tramadol, Ur Not Detected ng/mL N Cutoff: 25 86 O-desmethyltramadol, Ur Not Detected ng/mL N Cutoff: 25 87 Tapentadol, Ur Not Detected ng/mL N Cutoff: 25 88 N-desmethyltapentadol, Ur Not Detected ng/mL N Cutoff: 50 89 Zdiikykock-yqpy-jdgszypdrmz, U Not Detected ng/mL N 90 Buprenorphine, Ur Not Detected ng/mL N Cutoff: 5 91 Norbuprenorphine, Ur Not Detected ng/mL N Cutoff: 5 92 Norbuprenorphine glucuronide Not Detected ng/mL N Cutoff: 20 93 Opioid Interpretation See Comment N 94 THC Confirmation 05/02/2017 [facility] Urine Carboxy 157 ng/mL N [address] THC Confirm [place] [id number] [phone] Urine THC Interpretation Positive. N 96 1 SEE RESULT BELOW Name: DEBBIE CONNELLY : [address]: Teddy Vo MD Acct: [id number] Unit: [id number] AGE: 52 Location: [facility] Re07/03/18 SEX: F Status: REG REF SPEC: [id number] WILLIAM: 07/03/[address]: Teddy Vo MD REQ: [id number] RECD: 07/03/18 STATUS: SOUT _ ORDERED: TP IMAGE ANALYS, HPV/Thin Prep COMMENTS: [id number] Negative for Intraepithelial lesion or Malignancy Shift in henrry suggestive of bacterial vaginosis Date Time Test Result Flag (u) Normal Range 07/03/18 1335 @ HPV RNA POSITIVE An Negative @ @ The high-risk HPV types detected by the assay include: 16, @ 18, 31, 33, 35, 39, 45, 51, 52, 56, 58, 59, 66, and 68. A. Ectocervical/Endocervical Specimen Adequacy: Satisfactory of evaluation Transformation zone component identified Patient Information: HPV: High risk HPV RNA testing regardless of pap results. Actual Specimen Date: 07/03/18 ?: N Post Menopausal?: Y Hysterectomy?: N Signed by and Reported on: ZAK Saini(ASCP) [id number] This Pap test was evaluated with the assistance of the [employer] Technology[employer] Test Imaging System. Due to cytologic findings at the fountain pen turner microscope, comprehensive manual rescreening by a Circulation Worker may be required. The Pap Smear is a screening test designed to aid in the detection of premalignant and malignant conditions of the uterine cervix. It is not a diagnostic procedure and should not be used as the sole means of detecting cervical cancer. Both false- positive and false- negative reports do occur. Depending on your risk status, a Pap smear should be obtained and evaluated every 1-3 years. END OF REPORT DEPARTMENT OF PATHOLOGY, [address] [place] [address] Eugenio Mayberry M.D. Director HSINE # [id number] 2 REFERENCE VALUE Cutoff: 500 3 REFERENCE VALUE Cutoff: 200 4 REFERENCE VALUE Cutoff: 100 5 REFERENCE VALUE Cutoff: 150 6 ADDITIONAL INFORMATION This report is intended for use in clinical monitoring or management of patients. It is not intended for use in employment-related testing. 7 Manually Verified 8 REFERENCE VALUE Cutoff: 200 mg/L 9 Tylenol 3 10 Metabolite of codeine REFERENCE VALUE Cutoff: 100 11 Veronica Shaw, MS Contin; Also a minor metabolite (10%) of codeine and can be seen in low concentrations (<2,000 ng/mL) with poppy seed ingestion. 12 Metabolite of morphine REFERENCE VALUE Cutoff: 100 13 Metabolite of heroin 14 Lortab, Prentiss, Vicodin; Also a very minor metabolite of codeine and impurity (<1%) of oxycodone. 15 Metabolite of hydrocodone 16 Metabolite of hydrocodone 17 Dilaudid, Exalgo; Also a metabolite of hydrocodone and a minor (<5%) metabolite of morphine. 18 Metabolite of hydromorphone REFERENCE VALUE Cutoff: 100 19 Endocet, Percocet, Oxycontin 20 Metabolite of oxycodone 21 Numorphan, Opana; Also a metabolite of oxycodone. 22 Metabolite of oxymorphone REFERENCE VALUE Cutoff: 100 23 Metabolite of oxymorphone 24 Actiq, Duragesic, Fentora 25 Metabolite of fentanyl 26 Demerol 27 Metabolite of meperidine 28 Narcan 29 Metabolite of naloxone REFERENCE VALUE Cutoff: 100 30 Dolophine 31 Metabolite of methadone 32 Darvon, Darvocet 33 Metabolite of propoxyphene 34 Tradol, Ultram, Ultracet 35 Metabolite of tramadol 36 Nucynta 37 Metabolite of tapentadol 38 Metabolite of tapentadol REFERENCE VALUE Cutoff: 100 39 Buprenex, Suboxone 40 Metabolite of buprenorphine 41 Metabolite of buprenorphine 42 Test detected the presence of hydrocodone and one of its metabolites (norhydrocodone). Suspect use of hydrocodone within the past three days. ADDITIONAL INFORMATION This test was developed and its performance characteristics determined by [facility] in a manner consistent with CLIA requirements. This test has not been cleared or approved by the U.S. Food and Drug Administration. Test Performed by: [facility] - [address] [address] 43 >100 to <200 pg/mL: likely compensated congestive heart failure (CHF) 200 to 400 pg/mL: likely moderate CHF >400 pg/mL: likely moderate to severe CHF 44 [facility] Severe Sepsis and Septic Shock Management Bundle Measure requires all lactic acids initially measuring >2.0 mmol/L be repeated. 45 Please note: The following may produce a false positive D Dimer test: - Rheumatoid factor greater than 60 IU/ml - Plasma hemoglobin greater than 0.05 gm/dl - Bilirubin greater than 50 mg/dl - Lipids greater than 1000 mg/dl - FDP greater than 20 ug/ml 46 Because ethnic data is not always readily available, this report includes an eGFR for both -Americans and non- Americans. The National Kidney Disease Education Program (NKDEP) does not endorse the use of the MDRD equation for patients that are not between the ages of 18 and 70, are , have extremes of body size, muscle mass, or nutritional status, or are non- or non-. According to the National Kidney Foundation, irrespective of diagnosis, the stage of the disease is based on the level of kidney function: Stage Description GFR(mL/min/1.73 m(2)) 1 Kidney damage with normal or decreased GFR 90 2 Kidney damage with mild decrease in GFR 60-89 3 Moderate decrease in GFR 30-59 4 Severe decrease in GFR 15-29 5 Kidney failure <15 (or dialysis) 47 [id number] SEE RESULT BELOW Name: DEBBIE CONNELLY : [address]: Keven Katz MD Acct: [id number] Unit: [id number] AGE: 51 Location: [facility] Re08/01/17 SEX: F Status: REG REF SPEC: [id number] WILLIAM: 08/01/17- SUBM DR: Keven Katz MD REQ: [id number] RECD: 08/01/17 STATUS: CARYN WILLARD DR: Andrea Barnes MD _ ORDERED: NG THIN LAYER COMMENTS: [id number] FINAL DIAGNOSIS Breast, left @ 7 o'clock, fine needle aspiration: -- Scant benign apocrine epithelial elements, macrophages and inflammatory cells, compatible with benign cyst. Comment: Correlation with clinical and imaging findings as well as appropriate follow-up is recommended. BREAST LEFT - US GUIDED LEFT BREAST FINE NEEDLE ASPIRATION CLINICAL HISTORY Left breast 7 o'clock 1.7 cm complex lesion. 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 Director [facility] # [id number] Because ethnic data is not always readily available, this report includes an eGFR for both -Americans and non- Americans. The National Kidney Disease Education Program (NKDEP) does not endorse the use of the MDRD equation for patients that are not between the ages of 18 and 70, are , have extremes of body size, muscle mass, or nutritional status, or are non- or non-. According to the National Kidney Foundation, irrespective of diagnosis, the stage of the disease is based on the level of kidney function: Stage Description GFR(mL/min/1.73 m(2)) 1 Kidney damage with normal or decreased GFR 90 2 Kidney damage with mild decrease in GFR 60-89 3 Moderate decrease in GFR 30-59 4 Severe decrease in GFR 15-29 5 Kidney failure <15 (or dialysis) 50 Desirable <150 Borderline high 150-199 High 200-499 Very High >500 51 Desirable <200 Borderline high 200-239 High >239 52 Low <40 Desirable: 40-60 High: >60 53 Desirable: <100 mg/dL Near Optimal: 100-129 mg/dL Borderline High: 130-159 mg/dL High: 160-189 mg/dL Very High: >189 mg/dL 54 [id number] REFERENCE VALUE Cutoff: 500 56 REFERENCE VALUE Cutoff: 200 57 REFERENCE VALUE Cutoff: 100 58 REFERENCE VALUE Cutoff: 150 59 Presumptive Positive Drug confirmation to follow. Presumptive Positive means that the screening method is positive, but the test needs to be run by a confirmatory method before being finalized. ADDITIONAL INFORMATION This report is intended for use in clinical monitoring or management of patients. It is not intended for use in employment-related testing. 60 REFERENCE VALUE Cutoff: 200 mg/L 61 Tylenol 3 62 Metabolite of codeine REFERENCE VALUE Cutoff: 100 63 Avinza, Veronica, MS Contin; Also a minor metabolite (10%) of codeine and can be seen in low concentrations (<2,000 ng/mL) with poppy seed ingestion. 64 Metabolite of morphine REFERENCE VALUE Cutoff: 100 65 Metabolite of heroin 66 Lortab, Prentiss, Vicodin; Also a very minor metabolite of codeine and impurity (<1%) of oxycodone. 67 Metabolite of hydrocodone 68 Metabolite of hydrocodone 69 Dilaudid, Exalgo; Also a metabolite of hydrocodone and a minor (<5%) metabolite of morphine. 70 Metabolite of hydromorphone REFERENCE VALUE Cutoff: 100 71 Endocet, Percocet, Oxycontin 72 Metabolite of oxycodone 73 Numorphan, Opana; Also a metabolite of oxycodone. 74 Metabolite of oxymorphone REFERENCE VALUE Cutoff: 100 75 Metabolite of oxymorphone 76 Actiq, Duragesic, Fentora 77 Metabolite of fentanyl 78 Demerol 79 Metabolite of meperidine 80 Narcan 81 Metabolite of naloxone REFERENCE VALUE Cutoff: 100 82 Dolophine 83 Metabolite of methadone 84 Darvon, Darvocet 85 Metabolite of propoxyphene 86 Tradol, Ultram, Ultracet 87 Metabolite of tramadol 88 Nucynta 89 Metabolite of tapentadol 90 Metabolite of tapentadol REFERENCE VALUE Cutoff: 100 91 Buprenex, Suboxone 92 Metabolite of buprenorphine 93 Metabolite of buprenorphine 94 Test detected the presence of [id number]-glucuronide (metabolite of oxymorphone). Suspect use of oxymorphone within the past three days. ADDITIONAL INFORMATION This test was developed and its performance characteristics determined by [facility] in a manner consistent with CLIA requirements. This test has not been cleared or approved by the U.S. Food and Drug Administration. Test Performed by: [facility] - [address] [address] 95 REFERENCE VALUE Cutoff: 3.0 96 ADDITIONAL INFORMATION This report is intended for use in clinical monitoring and management of patients. It is not intended for use in employment-related testing. This test was developed and its performance characteristics determined by [facility] in a manner consistent with CLIA requirements. This test has not been cleared or approved by the U.S. Food and Drug Administration. Test Performed by: [facility] - [address] [address] Procedures Date Code Description Status 09/19/2018 [id number] Mammogram Completed 09/05/201839510 Inject/Drain Joint/Bursa Major W/O US Completed 11/14/201786005 Inject/Drain Joint/Bursa Major W/O US Completed 07/01/2017 [id number] Mammogram Completed 02/08/2010 [id number] Mammogram Completed Encounters Type Date Location Provider Dx Diagnosis Office Visit 09/05/2018 Orthopedic Otoniel Abdalla MD S46.012A Strain of 9:00a [facility] musc/tend the rotator cuff of left shoulder, init M25.512 Pain in left shoulder Office Visit 09/02/2018 1:20p [facility] Keven Pach[place]ara, F33.0 Major depressive Medicine - M.D. disorder, [address] recurrent, mild M54.5 Low back pain M25.512 Pain in left shoulder I10 Essential (primary) hypertension Office Visit 07/03/2018 1:00p [facility] Teddy Vo, Z01.411 Encntr for business analytics intern [facility] MD exam (general) (routine) w abnormal findings R10.30 Lower abdominal pain, unspecified Z12.31 Encntr screen mammogram for malignant neoplasm of breast R10.2 Pelvic and perineal pain Z23 Encounter for immunization Z11.51 Encounter for screening for human papillomavirus (HPV) Office Visit 06/11/2018 8:30a [facility] Internal Erica J06.9 Acute upper Medicine - [place], RPA-C respiratory Rd infection, unspecified Office Visit 05/26/2018 8:20a [facility] [place] M54.5 Low back pain Medicine - [place], Rd M.D. F33.0 Major depressive disorder, recurrent, mild K29.00 Acute gastritis without bleeding Office Visit 03/20/2018 8:40a [facility] [place] Pachikara, M54.5 Low back Medicine - [place] M.D. pain Rd F33.0 Major depressive disorder, recurrent, mild Office Visit 02/12/2018 9:40a [facility] Internal Keven Pachikara, M54.5 Low back Medicine - M.D. pain [place] F33.0 Major depressive disorder, recurrent, mild Office Visit 01/08/2018 9:50a [facility] Internal Medicine - Lesley Montgomery NP R[address] F17.210 Nicotine dependence, cigarettes, uncomplicated R06.2 Wheezing Office Visit 12/16/2017 1:00p [facility] Keven Pach[place], M54.5 Low back Medicine - [place] M.D. pain Rd R11.0 Nausea F33.0 Major depressive disorder, recurrent, mild F17.210 Nicotine dependence, cigarettes, uncomplicated Office Visit 11/14/2017 10:00a Orthopedic Otoniel Abdalla, M25.512 Pain in left [facility] S46.012A Strain of musc/tend the rotator cuff of left shoulder, init Office Visit 11/04/2017 3:10p [facility] Internal Lesley Montgomery, M54.5 Low back pain Medicine - [place] [address] S46.012A Strain of musc/tend the rotator cuff of left shoulder, init Office Visit 09/20/2017 2:40p [facility] Internal Keven Katz, M54.5 Low back Medicine - [place] M.D. pain Rd Office Visit 08/08/2017 9:40a [facility] Keven Katz, M54.5 Low back Medicine - [place] M.D. pain Rd F33.0 Major depressive disorder, recurrent, mild Office Visit 06/17/2017 3:00p [facility] Keven Katz, M54.5 Low back Medicine - [place] M.D[address] pain [address] M54.2 Cervicalgia F33.0 Major depressive disorder, recurrent, mild Z23 Encounter for immunization Office Visit 05/16/2017 9:30a [facility] Internal Lesley Montgomery, M54.5 Low back pain Medicine - [place] [address] F17.210 Nicotine dependence, cigarettes, uncomplicated Z00.00 Encntr for general adult medical exam w/o abnormal findings Office Visit 05/02/2017 8:40a [facility] Internal Keven Katz, M54.5 Low back Medicine - [place] M.D. pain [address] M54.2 Cervicalgia F17.210 Nicotine dependence, cigarettes, uncomplicated Z13.220 Encounter for screening for lipoid disorders Z13.1 Encounter for screening for diabetes mellitus Z12.31 Encntr screen mammogram for malignant neoplasm of breast Office Visit 02/02/2016 Orthopedic Roge Campos, S66.111A Strain flexor 2:00p [facility]/vargas/tend l idx [facility] fngr at s/hnd lv, init S93.411A Sprain of calcaneofibular ligament of right ankle, init Plan of Treatment Future Appointment(s):11/03/2018 2:20 pm - Silvia Ricardo MD at [facility] Internal Medicine - [address]10/21/2018 2:15 pm - Otoniel Abdalla MD at [facility]/15/2018 8:30 am - Chapis Rosenbaum MD at [facility]09/26/2018 - Silvia Ricardo, MDM54.5 Low back painNew Medication:Amitriptyline HCL 25 mg - one by mouth in the evening for one week, then 2 tabs at bedtimeReferral:Pain Clinic, Pain/Clinic/CTRFollow up:5 [id number] Essential (primary) hypertensionNew Medication:Cartia XT 240 mg - one po dailyComments:repeat BP left arm 180/80, we will increase CilaptS53.0 Major depressive disorder, recurrent, mild
[2018-10-10] MEDS ORDERED: LORazepam TAB(*) 1 MG PO ONE (16:08)
[2018-10-10] MEDS ORDERED: Ketorolac INJ* 60 MG/2 ML VIAL IM ONE (16:08)
[2018-10-10] MEDS ORDERED: predniSONE TAB* 10 MG PO ONE (16:08)
[2018-10-10 16:42] LABS: Urine Appearance Clear; Urine Bilirubin Negative (Negative); Urine Blood Negative (Negative); Urine Color Yellow; Urine Glucose Negative (Negative); Urine Ketones Negative (Negative); Urine Nitrite Negative (Negative); Urine Protein Negative (Negative); Urine Specific Gravity 1.014 (1.010-1.030); Urine Urobilinogen Negative (Negative)
[2018-10-10 17:11] VITALS: BP 178/92
--- NOTE | 2018-10-10 17:23 | ED ---
Back Pain - HPI Summary HPI Summary: Patient with a hx of chronic back pain presents to the ED with bilateral flank pain and midline back tenderness which is rated 9/10. She states this may be from her chronic back pain, however wants to assure she does not have a kidney infection. No history of kidney infection, kidney stones or frequent UTIs. Denies any fevers, sweats, chills. She is on chronic opioid pain medications at home which she states "is not touching the pain." She states she has tried heat, ibuprofen, positioning and stretching all without relief. Recent MRI last week shows no acute changes from previous MRI and she has a follow-up with Dr. Rosenbaum next week. Denies UTI symptoms. Denies saddle anesthesia, bladder or bowel dysfunction. Denies any numbness or tingling or foot drop. - History of Current Complaint Chief Complaint: EDFlankPain Stated Complaint: FLANK PAIN Time Seen by Provider: 10/10/18 15:59 Hx Obtained From: Patient Onset/Duration: Sudden Onset Onset/Duration: Started Hours Ago Timing: Constant Back Pain Location: Is Diffuse - throughout lower back Pain Intensity: 0 Pain Scale Used: 0-10 Numeric Character: Aching Alleviating Symptom(s): Rest, Position - Risk Factors AAA Risk Factors: Negative TAD Risk Factors: Negative Cauda Equina Risk Factors: Negative Epidural Abscess Risk Factors: Negative - Allergies/Home Medications Allergies/Adverse Reactions: Allergies Allergy/AdvReac Type Severity Reaction Status Date / Time No Known Allergies Allergy Verified 10/10/18 13:43 Home Medications: Home Medications Amitriptyline TAB* [Elavil TAB*] 50 mg PO BEDTIME 10/10/18 [History Confirmed ] BuPROPion XL* [Bupropion XL*] 300 mg PO QAM 10/10/18 [History Confirmed 10/10/18 ] HYDROcodone/ACETAMIN 5-325 MG* [[place] 5-325 TAB*] 1 tab PO Q6H PRN 10/10/18 [ History Confirmed 10/10/18] Pantoprazole TAB (NF) [Protonix TAB (NF)] 40 mg PO QAM 10/10/18 [History Confirmed 10/10/18] Sertraline* [Zoloft*] 100 mg PO DAILY 10/10/18 [History Confirmed 10/10/18] dilTIAZem HCl [Cartia Xt] 240 mg PO DAILY 10/10/18 [History Confirmed 10/10/18] PMH/Surg Hx/FS Hx/Imm Hx Previously Healthy: Yes Endocrine/Hematology History: Denies: Hx Diabetes Cardiovascular History: Denies: Hx Hypertension, Hx Pacemaker/ICD, Other Cardiovascular Problems/ Disorders Respiratory History: Denies: Other Respiratory Problems/Disorders History: Denies: Hx Renal Disease, Other Problems/Disorders Musculoskeletal History: Reports: Hx Arthritis - SPINE Sensory History: Reports: Hx Contacts or Glasses - READING GLASSES Denies: Hx Hearing Aid Opthamlomology History: Reports: Hx Contacts or Glasses - READING GLASSES Neurological History: Denies: Other Neuro Impairments/Disorders Psychiatric History: Reports: Hx Anxiety - NO MEDS Denies: Hx Panic Disorder - Cancer History Hx Chemotherapy: No Hx Radiation Therapy: No - Surgical History Surgery Procedure, Year, and Place: 2006 D&C- [facility] [place]. 2015, CERVICAL POLYPS, [facility] [place]. UTERINE ABLATION Hx Anesthesia Reactions: No Infectious Disease History: No Infectious Disease History: Denies: Traveled Outside the [place] in Last 30 Days - Family History Known Family History: Positive: Other - Bladder cancer in brother. Denies cardiac disease in family - Social History Occupation: Unemployed Lives: With Family Alcohol Use: Occasionally Alcohol Amount: 5 Hx Substance Use: Yes Substance Use Type: Reports: Marijuana Substance Use Comment - Amount & Last Used: 2 week -08/01/17 Hx Tobacco Use: Yes Smoking Status (MU): Heavy Every Day Tobacco Smoker Type: Cigarettes Amount Used/How Often: 1 PPD FOR 30 YRS Length of Time of Smoking/Using Tobacco: 30 YRS Have You Smoked in the Last Year: Yes Review of Systems Negative: Fever, Chills, Fatigue, Skin Diaphoresis Negative: Palpitations, Chest Pain Negative: Shortness Of Breath, Cough Genitourinary: Negative Positive: no symptoms reported, see HPI Positive: Arthralgia. Negative: Myalgia Skin: Negative All Other Systems Reviewed And Are Negative: Yes Physical Exam Triage Information Reviewed: Yes Vital Signs On Initial Exam: Initial Vitals Temp Pulse Resp BP Pulse Ox 97.8 F 86 16 194/109 98 10/10/18 13:39 10/10/18 13:39 10/10/18 13:39 10/10/18 13:39 10/10/18 13:39 Vital Signs Reviewed: Yes Appearance: Positive: Well-Appearing, Well-Nourished, Pain Distress Skin: Positive: Warm, Skin Color Reflects Adequate Perfusion Head/Face: Positive: Normal Head/Face Inspection Eyes: Positive: EOMI, MALATHI, Conjunctiva Clear Neck: Positive: Supple Respiratory/Lung Sounds: Positive: Clear to Auscultation, Breath Sounds Present Cardiovascular: Positive: RRR, Pulses are Symmetrical in both Upper and Lower Extremities Musculoskeletal: Positive: Pain @ - L4-S1 Neurological: Positive: Speech Normal Psychiatric: Positive: Normal, Affect/Mood Appropriate AVPU Assessment: Alert Diagnostics - Vital Signs Vital Signs Temp Pulse Resp BP Pulse Ox 10/10/18 17:10 97.9 F 88 18 178/92 96 10/10/18 16:32 18 10/10/18 13:39 97.8 F 86 16 194/109 98 - Laboratory Lab Results: Lab Results 10/10/18 Range/Units 16:10 Urine Color Yellow Urine Appearance Clear Urine pH 6.0 (5-9) Ur Specific Chambers 1.014 (1.010-1.030) Urine Protein Negative (Negative) Urine Ketones Negative (Negative) Urine Blood Negative (Negative) Urine Nitrate Negative (Negative) Urine Bilirubin Negative (Negative) Urine Urobilinogen Negative (Negative) Ur Leukocyte Esterase Negative (Negative) Urine Glucose Negative (Negative) Lab Statement: Any lab studies that have been ordered have been reviewed, and results considered in the medical decision making process. Back Pain Course/Dx - Course Course Of Treatment: During the course treatment, on physical examination, patient is tender to the L5-S1 lower spine without other tenderness to palpation of the spine otherwise. No CVA tenderness bilaterally. UA obtained which is negative. She is given a steroid and Toradol in the ED with a mild amount of relief. She will be discharged with this and will continue to follow up with Dr. Ortiz. This is likely an exacerbation or a flareup from her previous back injury and chronic pain. - Diagnoses Differential Diagnosis/HQI/PQRI: Positive: Strain, Sprain Provider Diagnoses: Chronic low back pain Discharge - Sign-Out/Discharge Documenting (check all that apply): Patient Departure - Discharge Plan Condition: Stable Disposition: HOME Prescriptions: Ketorolac TAB * [Toradol TAB *] 10 mg PO Q6H #16 tab predniSONE TAB* [Deltasone TAB*] 50 mg PO DAILY #5 tab MDD 1 Referrals: No Primary Care Phys,NOPCP [Primary Care Provider] - Additional Instructions: Prednisone once daily in the morning 5 days - start this medication tomorrow Toradol 4 times daily 4 days DID NOT TAKE IBUPROFEN OR OTHER NSAIDS WHILE TAKING THIS MEDICATION Follow-up with Dr. Rosenbaum as scheduled Use heat to the area - Billing Disposition and Condition Condition: STABLE Disposition: Home
== END 2018-10-10 17:10 | disposition home or self-care (01) ==
LOC: ED 13:33
DX: M54.5 Low back pain (principal); G89.29 Other chronic pain; F17.210 Nicotine dependence, cigarettes, uncomplicated
CPT/HCPCS: 81003; 96372; 99282; A9270-GY; J1885; J7512

== ENCOUNTER 2018-12-18 05:43 | Inpatient (IN) | payer OTHER ==
[~2018-12-18 05:43] MED LIST: Buffered Lidocaine 1% SYRIN* 1 ML/SYRINGE INTRADERM ONE
--- OUTSIDE RECORDS SUMMARY | 2018-12-18 05:47 | XMS REPORT | Continuity of Care Document ---
:1965 External Reference #:[id number] Author Name Dulce Miramontes Care Team Providers Name Role Phone Silvia Ricardo M.D. Primary Care Physician Unavailable Payers Date Identification Numbers Payment Provider Subscriber Effective: 2017 Policy Number: [id number] [place] Debbie Connelly Group Number: [id number] [address] PayID: [id number] [place] [address] Effective: 2013 Policy Number: [id number] [employer] Shhazadblair Ferreira Expires: 2016 Group Number: [id number] [address] PayID: [id number] [place] [address] Expires: 2017 Policy Number: [id number] Medicaid Debbie Connelly Group Name: 1 1 [address] PayID: [id number] [place] [address] Advance Directives Type Date Description Status Comment Other Directive 05/16/2017 Health Care Agent Current and Verified Problems Date Description Provider Status Onset: 05/02/2017 Low back pain Keven Katz M.D. Active Onset: 05/02/2017 Neck pain Keven Katz M.D. Active Onset: 06/17/2017 Mild recurrent major depression Keven Katz M.D. Active Onset: 05/26/2018 Acute gastritis Keven Katz M.D. Active Onset: 08/14/2018 Anxiety state Keven Katz M.D. Active Onset: 08/14/2018 Essential hypertension Keven Katz M.D. Active Onset: 09/05/2018 Strain of rotator cuff capsule Otoniel Abdalla MD Active Onset: 11/03/2018 Bicipital tenosynovitis Otoniel Abdalla MD Active Onset: 10/21/2018 Strain of rotator cuff capsule Otoniel Abdalla MD Resolved Resolved: 11/28/2018 Onset: 11/03/2018 Disorder of shoulder Otoniel Abdalla MD Resolved Resolved: 11/28/2018 Family History Date Family Member(s) Observation Comments General Diabetes General Cancer Father due to Accidental () - fall in SNF : (age 45 Mother due to Unknown when patient was age 14 Years) Causes Siblings 4 First Brother Bladder Cancer Social History Type Date Description Comments Sex Unknown Marital Status 2 Times living with Lives With spouse 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 Tobacco Use Start: Unknown Current Cigarette Smoker started at about 1 Pack Daily age 15 ETOH Use 11/28/2018 Denies alcohol use Recreational Drug Use Regularly uses Marijuana Tobacco Use Start: Unknown Light tobacco smoker (10 or fewer cigarettes/day) Smoking Status Reviewed: 12/09/18 Light tobacco smoker (10 or fewer cigarettes/day) Exercise Type/Frequency Does not exercise Allergies, Adverse Reactions, Alerts Description No Known Drug Allergies Medications Medication Date Status Form Strength Qnty SIG Indications Ordering Provider Oxycodone-Aceta 11/28 Active Tablets 7.5-325mg 90tab 1 by mouth M43.17 Shmuel min /2018 s every 4 D. Ellie, hours as Cassius,FACP needed Ventolin HFA 11/05 Active Aerosol 108(90Bas 8gm 2 by mouth J06.9 e) every 4 Ricardo, mcg/Act hours as MD needed Chantix 11/05 Active Tablets 0.5mg X 1pack follow F17.210 Silvia Starting 11 & 1 mg directions Ricardo, Rajat X 42 on the MD package Sertraline HCL 11/05 Active Tablets 100mg 45tab 1 and a half F41.9 s tablets by Ricardo, mouth every MD day Amitriptyline 09/26 Active Tablets 25mg 60tab one by mouth M54.5 s in the Ricardo, evening for one week, then 2 tabs at bedtime Cartia XT 09/26 Active Caps ER 240mg 30cap one by mouth I10 24HR s daily MD Davion Flonase Allergy 06/11 Active Suspension 50mcg/Act 15.80 one spray in J06.9 [place] 0ml each nostril Pachikara 1-2 times , M.D. daily. Acetaminophen 05/26 Active Tablets 500mg 180ta 2 tab 3 M54.5 bs times daily Pachikara as needed , M.D. Pantoprazole 05/[address] 40mg 30tab 1 in the K29.00 s morning villa Ricardo MD stomach Bupropion HCL 06/17 Active Tablets ER 300mg 30tab take one F33.0 Silvia ER (XL) 24HR s tablet by Davion mouth every MD morning Sertraline HCL 09/26 Hx Tablets 100mg 30tab 1 and a half F41.9 s tablets by Davion - mouth every Cartia XT 09/02 Hx Caps ER 180mg 30cap once daily I10 24HR s Sterling Bravo M.D. 09/26 Hydrocodone-William 09/02 Hx Tablets 5-325mg 100ta 1 tab every M43.17 taminophen bs 6h as needed Lawrence Ricardo for pain 11/28 Losartan 08/14 Hx Tablets 50mg 30tab 1 by mouth I10 s every day Sterling Bravo M.D. 09/02 Sertraline HCL 08/14 Hx Tablets 50mg 30tab Take One F41.9 s Tablet By Sterling - Mouth Every , M.DTom Metronidazole 07/11 Hx Gel 0.75% 45gm one [facility] applicator Gilda, - per vagina 09/02 daily x days Guaifenesin ER 06/11 Hx Tablets ER 1200mg 30tab Take by J06.9 Shmuel 12HR s mouth every DTom Argueta, - morning and M.D.,FACP 09/02 evening when not taking cough syrup. Guaifenesin-Cod 06/11 Hx Solution 100-10mg/ 1000m take 15 J06.9 Shelly estrada /2017 5ML l milliliters Erica Argueta, - every 4 M.D.,FACP 09/02 hours needed for cough at night. Hydrocodone-William 02/12 Hx Tablets 5-325mg 60tab 1 tab every M54.5 [place] taminophen /2017 s 12h as Pachikara - needed. , M.D. 09/02 Prednisone 01/08 Hx Tablets 5mg 28tab taper dose R05 Lesley s start with 7 Montgomery, - tabs (35mg) FAMILY WORKER 02/12 and by one tab each in the morning, 6,5,4,3,2,1 Bupropion HCL 12/16 Hx Tablets ER 150mg 30tab once daily F33.0 [place] ER (XL) 24HR s in the Pachikara - morning with , MTomD. 02/12 food Tramadol HCL 12/16 Hx Tablets 50mg 30tab three times M54.5 [place] /2017 s a day as Pachikara - needed , M.D. 02/12 Meloxicam 11/14 Hx Tablets 15mg 60tab 1 by mouth S46.012A Lesley s every day Montgomery, - for pain. FAMILY WORKER 02/12 take food. do not take ibuprofen while taking this Diclofenac 11/[address] 75mg 60tab take 1 S46.012A Lesley s tablet twice Montgomery, - a day with FAMILY WORKER 01/08 food Bupropion HCL 05/16 Hx Tablets ER 150mg 30tab one by mouth M54.5 Keven ER ( 12HR s every day Pachikara Det) - MTomDTom 06/17 Clindamycin HCL 05/15 Hx Capsules 150mg 40cap four times a [place] s day x 10 Pachikara - days , M.D. 08/08 Ibuprofen Hx Capsules 200mg as needed Unknown /0000 - 02/12 Acetaminophen Hx Tablets 500mg 2 tabs 3 Unknown Extra Strength /0000 times daily - as needed 03/20 for pain Hydrocodone-William Hx Tablets 5-325mg 90tab take one Keven taminophen /0000 s tablet by Pachikara - mouth every , M.D. 12/16 8 hours needed; maximum daily dose=3 Ibuprofen 00/00 Hx Capsules 200mg as needed Unknown /0000 - 05/26 Medications Administered in Office Medication Date Status Form Strength Qnty SIG Indications Ordering Provider Triamcinolone 09/05/ Administered Injection Zaneb (Kenalog) 2017 MD Lianne Triamcinolone 11/14/ Administered Injection Lorraine (Kenalog) 2017 WEN Torres Immunizations CPT Code Status Date Vaccine Lot # [id number] Given 07/03/2018 Influenza Virus Vaccine, Quadrivalent, Split, [id number] Preservative Free [id number] Given 06/17/2017 Influenza Virus Vaccine, Quadrivalent, Split, [id number] Preservative Free Vital Signs Date Vital Result Comment 12/09/2018 1:13pm Height 63 inches 5'3" Weight 152.00 lb BP Systolic Sitting 124 mmHg BP Diastolic Sitting 80 mmHg Pain Level 6 BMI (Body Mass Index) 26.9 kg/m2 11/28/2018 3:14pm Height 63 inches 5'3" Weight 152.00 lb with shoes Heart Rate 70 /min BP Systolic 142 mmHg BP Diastolic 84 mmHg O2 % BldC Oximetry 95 % BMI (Body Mass Index) 26.9 kg/m2 11/05/2018 11:20am Height 63 inches 5'3" Weight 149.00 lb Heart Rate 86 /min BP Systolic Sitting 110 mmHg large cuff left arm BP Diastolic Sitting 94 mmHg large cuff left arm Respiratory Rate 20 /min O2 % BldC Oximetry 95 % at rest on room air BMI (Body Mass Index) 26.4 kg/m2 11/04/2018 11:53am Height 63 inches 5'3" Weight 143.00 lb BP Systolic Sitting 130 mmHg BP Diastolic Sitting 70 mmHg Pain Level 7 BMI (Body Mass Index) 25.3 kg/m2 10/21/2018 2:17pm Height 63 inches 5'3" Weight 143.00 lb BP Systolic 131 mmHg BP Diastolic 82 mmHg Respiratory Rate 19 /min Pain Level 10 BMI (Body Mass Index) 25.3 kg/m2 10/15/2018 8:34am Height 64 inches 5'4" Weight 143.00 lb BP Systolic Sitting 140 mmHg BP Diastolic Sitting 82 mmHg Pain Level 8 BMI (Body Mass Index) 24.5 kg/m2 09/26/2018 11:01am Height 64 inches 5'4" Weight [...] Date Facility Test Result H/L Range Note Inr/Protime 12/11/2018 [facility] Inr 0.92 N 0.77-1.[address] [place] [address] [phone] Laboratory test 12/11/2018 [facility] Partial 33.4 seconds N 26.0-36.[address] [place] [address] PTT [phone] CBC No Diff 12/11/2018 [facility] White Blood 6.6 10^3/uL N 3.5-10.[address] [place] [address] [phone] Red Blood Count 4.70 10^6/uL N 4.00-5.40 Hemoglobin 13.9 g/dL N 12.0-16.0 Hematocrit 42 % N 35-47 Mean Corpuscular Volume 89 fL N 80-97 Mean Corpuscular Hemoglobin 30 pg N 27-31 Mean Corpuscular HGB Conc 33 g/dL N 31-36 Red Cell Distribution Width 15 % N 10.5-15 Platelet Count 440 10^3/uL N 150-450 Mean Platelet Volume 7.5 fL N 7.4-10.4 Urinalysis Profile 12/11/2018 [facility] Urine Color Yellow [address] [place] [address] [phone] Urine Appearance Cloudy Urine Specific [place] 1.017 N 1.010-1.030 Urine pH 5.0 N 5-9 Urine Urobilinogen Negative Negative Urine Ketones Negative Negative Urine Protein Negative Negative Urine Leukocytes Negative Negative Urine Blood Negative Negative Urine Nitrite Negative Negative Urine Bilirubin Negative Negative Urine Glucose Negative Negative Laboratory test 12/11/2018 [facility] HCG 2.94 mIU/mL [address] [place] [address] [phone] Basic Metabolic 12/11/2018 [facility] Sodium 138 mmol/L N 135- [address] [place] [address] [phone] Potassium 4.5 mmol/L N 3.5-5.0 Chloride 103 mmol/L N 101-111 Co2 Carbon Dioxide 28 mmol/L N 22-32 Anion Gap 7 mmol/L N 2-11 Glucose 94 mg/dL N 70-100 Blood Urea Nitrogen 11 mg/dL N 6-24 Creatinine 0.76 mg/dL N 0.51-0.95 BUN/Creatinine Ratio 14.5 N 8-20 Calcium 9.7 mg/dL N 8.6-10.3 Egfr Non- 79.9 >60 Egfr 96.7 >60 4 Type & Screen 12/11/2018 [facility] Patient Blood Type O Positive [address] [place] [address] [phone] Antibody Screen NEGATIVE Drug Abuse 11/05/2018 [facility] Urine Presumptive Abnormal 5, 6 20 [address]rine [address] [facility] [address] Amphetamine Posi <SEE NOTE> [place] [address] ng/mL [phone] Urine Barbiturates Negative ng/mL 7 Urine Benzodiazepines Negative ng/mL 8 Urine Cocaine Negative ng/mL 9 Urine Phencyclidine Negative ng/mL Cutoff: 25 Urine Tetrahydrocannabinol Presumptive Posi <SEE NOTE> Abnormal Cutoff: 50 10 ng/mL Creatinine, Urine 114.6 mg/dL Specific [place] 1.017 pH 6.0 Oxidants Negative 11 Adulterants Comment Normal Codeine, Ur Present ng/mL Abnormal Cutoff: 25 12 Ozdeonk-0-vxyc-glucuronide, Ur Present ng/mL Abnormal 13 Morphine, Ur Not Detected ng/mL Cutoff: 25 14 Cxxpuzuj-7-etyd-glucuronide, U Not Detected ng/mL 15 6-monoacetylmorphine, Ur Not Detected ng/mL Cutoff: 25 16 Hydrocodone, Ur Present ng/mL Abnormal Cutoff: 25 17 Norhydrocodone, Ur Present ng/mL Abnormal Cutoff: 25 18 Dihydrocodeine, Ur Present ng/mL Abnormal Cutoff: 25 19 Hydromorphone, Ur Not Detected ng/mL Cutoff: 25 20 Xlzktoqbqlqvn2pczarmymjvackoa Present ng/mL Abnormal 21 Oxycodone, Ur Present ng/mL Abnormal Cutoff: 25 22 Noroxycodone, Ur Present ng/mL Abnormal Cutoff: 25 23 Oxymorphone, Ur Present ng/mL Abnormal Cutoff: 25 24 Gxiuourcrcz-2-zkcm-glucuronide Present ng/mL Abnormal 25 Noroxymorphone, Ur Present ng/mL Abnormal Cutoff: 25 26 Fentanyl, Ur Not Detected ng/mL Cutoff: 2 27 Norfentanyl, Ur Not Detected ng/mL Cutoff: 2 28 Meperidine, Ur Not Detected ng/mL Cutoff: 25 29 Normeperidine, Ur Not Detected ng/mL Cutoff: 25 30 Naloxone, Ur Not Detected ng/mL Cutoff: 25 31 Waqmmcfg-3-jouy-glucuronide, U Not Detected ng/mL 32 Methadone, Ur Not Detected ng/mL Cutoff: 25 33 Eddp, Ur Not Detected ng/mL Cutoff: 25 34 Propoxyphene, Ur Not Detected ng/mL Cutoff: 25 35 Norpropoxyphene, Ur Not Detected ng/mL Cutoff: 25 36 Tramadol, Ur Not Detected ng/mL Cutoff: 25 37 O-desmethyltramadol, Ur Not Detected ng/mL Cutoff: 25 38 Tapentadol, Ur Not Detected ng/mL Cutoff: 25 39 N-desmethyltapentadol, Ur Not Detected ng/mL Cutoff: 50 40 Zteetjbjgh-essh-ugcxflgrrbv, U Not Detected ng/mL 41 Buprenorphine, Ur Not Detected ng/mL Cutoff: 5 42 Norbuprenorphine, Ur Not Detected ng/mL Cutoff: 5 43 Norbuprenorphine glucuronide Not Detected ng/mL Cutoff: 20 44 Opioid Interpretation See Comment 45 THC Confirmation 11/05/2018 [facility] Urine Carboxy 162 ng/mL [address] THC Confirm [place], [place] [id number] [phone] Urine THC Interpretation Positive. 47 Urine 11/05/2018 [facility] Urine Negative Cutoff: [address] Amphetamine by ng/[place] [address] GC/MS [phone] Urine Methamphetamine by GC/MS Negative ng/mL Cutoff: 25 Phentermine-by GC/MS Negative ng/mL Cutoff: 25 Pseudoephedrine/Ephedr GC/MS Negative ng/mL Cutoff: 25 Mda(Ecstacy metabolite) GC/MS See Comment ng/mL Cutoff: 25 48 Mdma(Ecstacy)-by GC/MS Negative ng/mL Cutoff: 25 Urine Amphetamines Interp See Comment 49 Laboratory test 07/03/2018 [facility] Cytology SEE RESULT [address] [place] [address] [phone] Drug Abuse 20 05/26/2018 [facility] Urine Amphetamine Negative ng/mL [address] [place], [place] [id number] [phone] Urine Barbiturates Negative ng/mL 52 Urine Benzodiazepines Negative ng/mL 53 Urine Cocaine Negative ng/mL 54 Urine Phencyclidine Negative ng/mL Cutoff: 25 Urine Tetrahydrocannabinol Negative ng/mL Cutoff: 50 55 Creatinine, Urine 7.9 mg/dL Specific [place] 1.001 56 pH 6.9 Oxidants Negative 57 Adulterants Comment Normal Codeine, Ur Not Detected ng/mL Cutoff: 25 58 Refizgd-1-zvxy-glucuronide, Ur Not Detected ng/mL 59 Morphine, Ur Not Detected ng/mL Cutoff: 25 60 Yxuieowr-5-eqrp-glucuronide, U Not Detected ng/mL 61 6-monoacetylmorphine, Ur Not Detected ng/mL Cutoff: 25 62 Hydrocodone, Ur Present ng/mL Abnormal Cutoff: 25 63 Norhydrocodone, Ur Present ng/mL Abnormal Cutoff: 25 64 Dihydrocodeine, Ur Not Detected ng/mL Cutoff: 25 65 Hydromorphone, Ur Not Detected ng/mL Cutoff: 25 66 Leomcukcxwpjl8gjejfsodtsifioe Not Detected ng/mL 67 Oxycodone, Ur Not Detected ng/mL Cutoff: 25 68 Noroxycodone, Ur Not Detected ng/mL Cutoff: 25 69 Oxymorphone, Ur Not Detected ng/mL Cutoff: 25 70 Qhambycofbg-8-qttm-glucuronide Not Detected ng/mL 71 Noroxymorphone, Ur Not Detected ng/mL Cutoff: 25 72 Fentanyl, Ur Not Detected ng/mL Cutoff: 2 73 Norfentanyl, Ur Not Detected ng/mL Cutoff: 2 74 Meperidine, Ur Not Detected ng/mL Cutoff: 25 75 Normeperidine, Ur Not Detected ng/mL Cutoff: 25 76 Naloxone, Ur Not Detected ng/mL Cutoff: 25 77 Xtuetfmh-3-mllc-glucuronide, U Not Detected ng/mL 78 Methadone, Ur Not Detected ng/mL Cutoff: 25 79 Eddp, Ur Not Detected ng/mL Cutoff: 25 80 Propoxyphene, Ur Not Detected ng/mL Cutoff: 25 81 Norpropoxyphene, Ur Not Detected ng/mL Cutoff: 25 82 Tramadol, Ur Not Detected ng/mL Cutoff: 25 83 O-desmethyltramadol, Ur Not Detected ng/mL Cutoff: 25 84 Tapentadol, Ur Not Detected ng/mL Cutoff: 25 85 N-desmethyltapentadol, Ur Not Detected ng/mL Cutoff: 50 86 Hrtxjenyja-pjfn-eydiimjewaz, U Not Detected ng/mL 87 Buprenorphine, Ur Not Detected ng/mL Cutoff: 5 88 Norbuprenorphine, Ur Not Detected ng/mL Cutoff: 5 89 Norbuprenorphine glucuronide Not Detected ng/mL Cutoff: 20 90 Opioid Interpretation See Comment 91 Laboratory test 10/08/2017 [facility] Troponin-I (TnI) 0.00 ng/ mL <0.[address] [place] [address] [phone] Laboratory test 10/08/2017 [facility] B-Type 17 pg/mL [address] [place] [address] Peptide BNP [phone] Lactic Acid 1.4 mmol/L N 0.5-2.0 93 Inr/Protime 10/08/2017 [facility] Inr 0.90 N 0.77-1.[address] [place] [address] [phone] Laboratory test 10/08/2017 [facility] Partial 31.1 seconds N 26.0-36.[address] [place] [address] PTT [phone] D Dimer Quantitative < 200 ng/mL N Less Than 230 94 CBC Auto Diff 10/08/2017 [facility] White Blood 5.2 10^3/uL N 3.5-10.[address] [place] [address] [phone] Red Blood Count 4.47 10^6/uL N 4.0-5.4 [...] Blood Cells % 0 Laboratory test 10/08/2017 [facility] Troponin-I 0.00 ng/mL < 0.[address] (TnI) [place] [address] [phone] CKMB 10/08/2017 [facility] CKMB ng/mL 1.1 ng/mL N 0.6-6.[address] [place] [address] [phone] Laboratory test 10/08/2017 [facility] Thyroxine 8.54 N 6.09- 12.[address] g/[place] [address] [phone] Laboratory test 10/08/2017 [facility] Magnesium 2.0 mg/dL N 1.9-2.[address] [place] [address] [phone] Creatine Kinase(CK) 55 U/L N 10-223 TSH (Thyroid Stim Horm) 1.75 mcIU/mL N 0.34-5.60 Comp Metabolic Panel 10/08/2017 [facility] Sodium 134 mmol/L N 133-[address] [place] [address] [phone] Potassium 3.7 mmol/L N 3.5-5.0 Chloride 102 [...] Egfr Non- 83.1 >60 Egfr 106.8 >60 95 Laboratory test 08/01/2017 [facility] Cytology SEE RESULT 96, [address] [place] [address] [phone] Comp Metabolic 05/04/2017 [facility] Sodium 135 mmol/L N 133- [address] [place] [address] [phone] Potassium 4.4 mmol/L N 3.5-5.0 Chloride 104 [...] 91.6 N >60 Egfr 117.8 N >60 98 Lipid Profile 05/04/2017 [facility] Triglycerides 238 mg/dL N 99 (Trig/Chol/HDL) [address] [place] [address] [phone] Cholesterol 214 mg/dL N 100 HDL Cholesterol 42.3 mg/dL N 101 LDL Cholesterol 124 mg/dL N 102 THC Confirmation 05/02/2017 [facility] Urine Carboxy 157 ng/mL N 103, [address] [place] [address] [phone] Urine THC Interpretation Positive. N 105 Drug Abuse 05/02/2017 [facility] Urine Amphetamine Negative ng/ mL N 106 [address] [place] [address] [phone] Urine Barbiturates Negative ng/mL N 107 Urine Benzodiazepines Negative ng/mL N 108 Urine Cocaine Negative ng/mL N 109 Urine Phencyclidine Negative ng/mL N Cutoff: 25 Urine Tetrahydrocannabinol Presumptive Posi <SEE NOTE> ng/mL N Cutoff: 50 110 Creatinine, Urine 51.4 mg/dL N Specific [place] 1.005 N pH 6.9 N Oxidants Negative N 111 Adulterants Comment Normal N Codeine, Ur Not Detected ng/mL N Cutoff: 25 112 Obvdhyf-1-xljo-glucuronide, Ur Not Detected ng/mL N 113 Morphine, Ur Not Detected ng/mL N Cutoff: 25 114 Cgaybjux-3-tcdx-glucuronide, U Not Detected ng/mL N 115 6-monoacetylmorphine, Ur Not Detected ng/mL N Cutoff: 25 116 Hydrocodone, Ur Not Detected ng/mL N Cutoff: 25 117 Norhydrocodone, Ur Not Detected ng/mL N Cutoff: 25 118 Dihydrocodeine, Ur Not Detected ng/mL N Cutoff: 25 119 Hydromorphone, Ur Not Detected ng/mL N Cutoff: 25 120 Haazsuxhjtlgx4lnbaabazauwiiey Not Detected ng/mL N 121 Oxycodone, Ur Not Detected ng/mL N Cutoff: 25 122 Noroxycodone, Ur Not Detected ng/mL N Cutoff: 25 123 Oxymorphone, Ur Not Detected ng/mL N Cutoff: 25 124 Dsrebtzmvlm-9-yhvc-glucuronide Present ng/mL N 125 Noroxymorphone, Ur Not Detected ng/mL N Cutoff: 25 126 Fentanyl, Ur Not Detected ng/mL N Cutoff: 2 127 Norfentanyl, Ur Not Detected ng/mL N Cutoff: 2 128 Meperidine, Ur Not Detected ng/mL N Cutoff: 25 129 Normeperidine, Ur Not Detected ng/mL N Cutoff: 25 130 Naloxone, Ur Not Detected ng/mL N Cutoff: 25 131 Xmdtjpim-2-mntw-glucuronide, U Not Detected ng/mL N 132 Methadone, Ur Not Detected ng/mL N Cutoff: 25 133 Eddp, Ur Not Detected ng/mL N Cutoff: 25 134 Propoxyphene, Ur Not Detected ng/mL N Cutoff: 25 135 Norpropoxyphene, Ur Not Detected ng/mL N Cutoff: 25 136 Tramadol, Ur Not Detected ng/mL N Cutoff: 25 137 O-desmethyltramadol, Ur Not Detected ng/mL N Cutoff: 25 138 Tapentadol, Ur Not Detected ng/mL N Cutoff: 25 139 N-desmethyltapentadol, Ur Not Detected ng/mL N Cutoff: 50 140 Nqieknmouf-boeu-ylbktnyxltx, U Not Detected ng/mL N 141 Buprenorphine, Ur Not Detected ng/mL N Cutoff: 5 142 Norbuprenorphine, Ur Not Detected ng/mL N Cutoff: 5 143 Norbuprenorphine glucuronide Not Detected ng/mL N Cutoff: 20 144 Opioid Interpretation See Comment N 145 1 AA 12/18 2 AA 12/18 3 <5.0 Negative 5.0 - 25.0 Indeterminate (Repeat testing recommended after 72 hours) >25.0 Positive Perimenopausal women can display HCG levels of up to 20 mIU/mL 4 Because ethnic data is not always readily [...] 15-29 5 Kidney failure <15 (or dialysis) 5 [id number] Presumptive Positive Drug confirmation to follow. Presumptive Positive means that the screening method is positive, but the test needs to be run by a confirmatory method before being finalized. REFERENCE VALUE Cutoff: 500 7 REFERENCE VALUE Cutoff: 200 8 REFERENCE VALUE Cutoff: 100 9 REFERENCE VALUE Cutoff: 150 10 Presumptive Positive Drug confirmation to follow. Presumptive Positive means that the screening method is positive, but the test needs to be run by a confirmatory method before being finalized. ADDITIONAL INFORMATION This report is intended for use in clinical monitoring or management of patients. It is not intended for use in employment-related testing. 11 REFERENCE VALUE Cutoff: 200 mg/L 12 Tylenol 3 13 Metabolite of codeine REFERENCE VALUE Cutoff: 100 14 Veronica Shaw, Contin; Also a minor metabolite (10%) of codeine and can be seen in low concentrations (<2,000 ng/mL) with poppy seed ingestion. 15 Metabolite of morphine REFERENCE VALUE Cutoff: 100 16 Metabolite of heroin 17 Lortab, Champion, Vicodin; Also a very minor metabolite of codeine and impurity (<1%) of oxycodone. 18 Metabolite of hydrocodone 19 Metabolite of hydrocodone 20 Dilaudid, Exalgo; Also a metabolite of hydrocodone and a minor (<5%) metabolite of morphine. 21 Metabolite of hydromorphone REFERENCE VALUE Cutoff: 100 22 Endocet, Percocet, Oxycontin 23 Metabolite of oxycodone 24 Numorphan, Opana; Also a metabolite of oxycodone. 25 Metabolite of oxymorphone REFERENCE VALUE Cutoff: 100 26 Metabolite of oxymorphone 27 Actiq, Duragesic, Fentora 28 Metabolite of fentanyl 29 Demerol 30 Metabolite of meperidine 31 Narcan 32 Metabolite of naloxone REFERENCE VALUE Cutoff: 100 33 Dolophine 34 Metabolite of methadone 35 Darvon, Darvocet 36 Metabolite of propoxyphene 37 Tradol, Ultram, Ultracet 38 Metabolite of tramadol 39 Nucynta 40 Metabolite of tapentadol 41 Metabolite of tapentadol REFERENCE VALUE Cutoff: 100 42 Buprenex, Suboxone 43 Metabolite of buprenorphine 44 Metabolite of buprenorphine 45 Test detected the presence of both codeine and its metabolite (lpkhqgy-1-kmjv-glucuronide). Suspect use of codeine within the past three days. Test detected the presence of hydrocodone, two of its metabolites (norhydrocodone and dihydrocodeine), and rqhfhzadfdjyn-7-lbcr-glucuronide (metabolite of hydromorphone). Suspect use of hydrocodone and/or hydromorphone within the past three days. Trace amounts of hydrocodone can also be found as an impurity in hydromorphone. Test detected the presence of oxycodone and several metabolites (noroxycodone, oxymorphone, noroxymorphone, and ehlorrpqyzo-5-kiug-glucuronide). Suspect use of oxycodone and/or oxymorphone within the past three days. ADDITIONAL INFORMATION This test was developed and its performance characteristics determined by [facility] in a manner consistent with CLIA requirements. This test has not been cleared or approved by the U.S. Food and Drug Administration. Test Performed by: [facility] [employer] [facility] [address] [place] [address] 46 REFERENCE VALUE Cutoff: 3.0 47 ADDITIONAL INFORMATION This report is intended for use in clinical monitoring and management of patients. It is not intended for use in employment-related testing. This test was developed and its performance characteristics determined by [facility] in a manner consistent with CLIA requirements. This test has not been cleared or approved by the U.S. Food and Drug Administration. Test Performed by: [facility] [place] [address] 48 Unknown interfering substance present; unable to obtain results. 49 Chromatographic interference prevents accurate identification. ADDITIONAL INFORMATION This report is intended for use in clinical monitoring and management of patients. It is not intended for use in employment-related testing. This test was developed and its performance characteristics determined by [facility] in a manner consistent with CLIA requirements. This test has not been cleared or approved by the U.S. Food and Drug Administration. Test Performed by: [facility] - [address] [address] 50 SEE RESULT BELOW Name: DEBBIE CONNELLY : [address]: Teddy Vo MD Acct: [id number] Unit: [id number] AGE: 52 Location: [facility] Re07/03/18 SEX: F Status: REG REF SPEC: [id number] WILLIAM: 07/03/18-[address]: Teddy Vo MD REQ: [id number] RECD: 07/03/18 STATUS: SOUT _ ORDERED: TP IMAGE ANALYS, HPV/Thin Prep COMMENTS: [id number] Negative for Intraepithelial lesion or Malignancy Shift [...] Signed by and Reported on: ZAK Saini(ASCP) [id number] This Pap test was evaluated with the assistance of the ThinPrep Test Imaging System. Due to cytologic findings at the machine designer microscope, comprehensive manual rescreening by a [facility] may be required. The Pap Smear is [...] years. END OF REPORT DEPARTMENT OF PATHOLOGY, [address] [place] [address] Eugenio Mayberry M.D. Director [facility] # [id number] 51 REFERENCE VALUE Cutoff: 500 52 REFERENCE VALUE Cutoff: 200 53 REFERENCE VALUE Cutoff: 100 54 REFERENCE VALUE Cutoff: 150 55 ADDITIONAL INFORMATION This report is intended for use in clinical monitoring or management of patients. It is not intended for use in employment-related testing. 56 Manually Verified 57 REFERENCE VALUE Cutoff: 200 mg/L 58 Tylenol 3 59 Metabolite of codeine REFERENCE VALUE Cutoff: 100 60 Veronica Shaw, MS Contin; Also a minor metabolite (10%) of codeine and can be seen in low concentrations (<2,000 ng/mL) with poppy seed ingestion. 61 Metabolite of morphine REFERENCE VALUE Cutoff: 100 62 Metabolite of heroin 63 Lortab, Champion, Vicodin; Also a very minor metabolite of codeine and impurity (<1%) of oxycodone. 64 Metabolite of hydrocodone 65 Metabolite of hydrocodone 66 Dilaudid, Exalgo; Also a metabolite of hydrocodone and a minor (<5%) metabolite of morphine. 67 Metabolite of hydromorphone REFERENCE VALUE Cutoff: 100 68 Endocet, Percocet, Oxycontin 69 Metabolite of oxycodone 70 Numorphan, Opana; Also a metabolite of oxycodone. 71 Metabolite of oxymorphone REFERENCE VALUE Cutoff: 100 72 Metabolite of oxymorphone 73 Actiq, Duragesic, Fentora 74 Metabolite of fentanyl 75 Demerol 76 Metabolite of meperidine 77 Narcan 78 Metabolite of naloxone REFERENCE VALUE Cutoff: 100 79 Dolophine 80 Metabolite of methadone 81 Darvon, Darvocet 82 Metabolite of propoxyphene 83 Tradol, Ultram, Ultracet 84 Metabolite of tramadol 85 Nucynta 86 Metabolite of tapentadol 87 Metabolite of tapentadol REFERENCE VALUE Cutoff: 100 88 Buprenex, Suboxone 89 Metabolite of buprenorphine 90 Metabolite of buprenorphine 91 Test detected the presence of hydrocodone and one of its metabolites (norhydrocodone). Suspect use of hydrocodone within the past three days. ADDITIONAL INFORMATION This test was developed and its performance characteristics determined by [facility] in a manner consistent with CLIA requirements. This test has not been cleared or approved by the U.S. Food and Drug Administration. Test Performed by: [facility] - [address] [address] 92 >100 to <200 pg/mL: likely compensated congestive heart failure (CHF) 200 to 400 pg/mL: likely moderate CHF >400 pg/mL: likely moderate to severe CHF 93 [facility] Severe Sepsis and Septic Shock Management Bundle Measure requires all lactic acids initially measuring >2.0 mmol/L be repeated. 94 Please note: The following may produce a false positive D Dimer test: - Rheumatoid factor greater than 60 IU/ml - Plasma hemoglobin greater than 0.05 gm/dl - Bilirubin greater than 50 mg/dl - Lipids greater than 1000 mg/dl - FDP greater than 20 ug/ml 95 Because ethnic data is not always readily [...] 15-29 5 Kidney failure <15 (or dialysis) 96 [id number] 97 SEE RESULT BELOW Name: DEBBIE CONNELLY : [address]: Keven Katz MD Acct: [id number] Unit: [id number] AGE: 51 Location: [facility] Re08/01/17 SEX: F Status: REG REF SPEC: [id number] WILLIAM: 08/01/17- SUBM DR: Keven Katz MD REQ: [id number] RECD: 08/01/17 STATUS: CARYN WILLARD DR: Andrea Barnes MD _ ORDERED: NG THIN LAYER COMMENTS: [id number] FINAL DIAGNOSIS Breast, left @ 7 o'clock, [...] rinse in CytoLyt solution 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 Director [facility] # [id number] 98 Because ethnic data is not always readily [...] 15-29 5 Kidney failure <15 (or dialysis) 99 Desirable <150 Borderline high 150-199 High 200-499 Very High >500 100 Desirable <200 Borderline high 200-239 High >239 101 Low <40 Desirable: 40-60 High: >60 102 Desirable: <100 mg/dL Near Optimal: 100-129 mg/dL Borderline High: 130-159 mg/dL High: 160-189 mg/dL Very High: >189 mg/dL 103 [id number] REFERENCE VALUE Cutoff: 3.0 105 ADDITIONAL INFORMATION This report is intended for use in clinical monitoring and management of patients. It is not intended for use in employment-related testing. This test was developed and its performance characteristics determined by [facility] in a manner consistent with CLIA requirements. This test has not been cleared or approved by the U.S. Food and Drug Administration. Test Performed by: [facility] - [facility] [address] [place] [id number] 106 REFERENCE VALUE Cutoff: 500 107 REFERENCE VALUE Cutoff: 200 108 REFERENCE VALUE Cutoff: 100 109 REFERENCE VALUE Cutoff: 150 110 Presumptive Positive Drug confirmation to follow. Presumptive Positive means that the screening method is positive, but the test needs to be run by a confirmatory method before being finalized. ADDITIONAL INFORMATION This report is intended for use in clinical monitoring or management of patients. It is not intended for use in employment-related testing. 111 REFERENCE VALUE Cutoff: 200 mg/L 112 Tylenol 3 113 Metabolite of codeine REFERENCE VALUE Cutoff: 100 114 Veronica Shaw, Contin; Also a minor metabolite (10%) of codeine and can be seen in low concentrations (<2,000 ng/mL) with poppy seed ingestion. 115 Metabolite of morphine REFERENCE VALUE Cutoff: 100 116 Metabolite of heroin 117 Lortab, Champion, Vicodin; Also a very minor metabolite of codeine and impurity (<1%) of oxycodone. 118 Metabolite of hydrocodone 119 Metabolite of hydrocodone 120 Dilaudid, Exalgo; Also a metabolite of hydrocodone and a minor (<5%) metabolite of morphine. 121 Metabolite of hydromorphone REFERENCE VALUE Cutoff: 100 122 Endocet, Percocet, Oxycontin 123 Metabolite of oxycodone 124 Numorphan, Opana; Also a metabolite of oxycodone. 125 Metabolite of oxymorphone REFERENCE VALUE Cutoff: 100 126 Metabolite of oxymorphone 127 Actiq, Duragesic, Fentora 128 Metabolite of fentanyl 129 Demerol 130 Metabolite of meperidine 131 Narcan 132 Metabolite of naloxone REFERENCE VALUE Cutoff: 100 133 Dolophine 134 Metabolite of methadone 135 Darvon, Darvocet 136 Metabolite of propoxyphene 137 Tradol, Ultram, Ultracet 138 Metabolite of tramadol 139 Nucynta 140 Metabolite of tapentadol 141 Metabolite of tapentadol REFERENCE VALUE Cutoff: 100 142 Buprenex, Suboxone 143 Metabolite of buprenorphine 144 Metabolite of buprenorphine 145 Test detected the presence of laiezfmnobm-2-kjje-glucuronide (metabolite of oxymorphone). Suspect use of oxymorphone within the past three days. ADDITIONAL INFORMATION This test was developed and its performance characteristics determined by [facility] in a manner consistent with CLIA requirements. This test has not been cleared or approved by the U.S. Food and Drug Administration. Test Performed by: [address] [address] Procedures Date Code Description Status 09/19/2018 [id number] Mammogram Completed 09/05/201869194 Inject/Drain Joint/Bursa Major W/O US Completed 11/14/2017 [id number] Inject/Drain Joint/Bursa Major W/O US Completed 07/01/2017 [id number] Mammogram Completed 02/08/2010 [id number] Mammogram Completed Encounters Type Date Location Provider Dx Diagnosis Office Visit 11/28/2018 [facility] Internal Shmuel Maldonado Z01.810 Encounter for 3:20p Medicine - [place] Cassius Argueta,FACP preprocedural Rd cardiovascular examination M43.17 Spondylolisthesis, lumbosacral region I10 Essential (primary) hypertension F17.210 Nicotine dependence, cigarettes, uncomplicated Office Visit 11/05/2018 10:40a [facility] Internal Silvia Ricardo MD I10 Essential (primary) Medicine - [place] hypertension Rd F33.0 Major depressive disorder, recurrent, mild M54.5 Low back pain F17.210 Nicotine dependence, cigarettes, uncomplicated J06.9 Acute upper respiratory infection, unspecified 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 rotator cuff of left shoulder, init M75.42 Impingement syndrome of left shoulder M75.22 Bicipital tendinitis, left shoulder Office 10/15/2018 Neurosurgery [place] M43.16 Spondylolisthesis, Visit 8:30a [facility] [place] Rosenbaum MD lumbar region M47.26 Other spondylosis with radiculopathy, lumbar region Office Visit 09/26/2018 11:00a [facility] Mikey Ricardo MD M54.5 Low back pain Medicine - [place] I10 Essential (primary) hypertension F33.0 Major depressive disorder, recurrent, mild Office Visit 09/05/2018 9:00a Orthopedic Otoniel Abdalla, S46.012A Strain of Services Of MD john/geno [facility] rotator cuff of left shoulder, init M25.512 Pain in left shoulder Office Visit 09/02/2018 1:20p [facility] Internal Keven Katz, F33.0 Major depressive Medicine - M.D. disorder, [place] [address] recurrent, mild M54.5 Low back pain M25.512 Pain in left shoulder I10 Essential (primary) hypertension Office Visit 08/14/2018 3:20p [facility] Internal Keven Katz, F33.0 Major depressive Medicine - M.D. disorder, [place] [address] recurrent, mild F41.9 Anxiety disorder, unspecified M54.5 Low back pain I10 Essential (primary) hypertension Office Visit 07/03/2018 1:00p [facility] Teddy Vo, Z01.411 Encntr for flight communications specialist [facility] MORRISSEY exam (general) (routine) w abnormal findings R10.30 Lower abdominal pain, unspecified Z12.31 Encntr screen mammogram for malignant neoplasm of breast R10.2 Pelvic and perineal pain Z23 Encounter for immunization Z11.51 Encounter for screening for human papillomavirus (HPV) Office Visit 06/11/2018 8:30a [facility] Internal Erica J06.9 Acute upper Medicine - [place] Marker, RPA-C respiratory Rd infection, unspecified Office Visit 05/26/2018 8:20a [facility] Internal [place] M54.5 Low back pain Medicine - [place] P[place], Rd M.D. F33.0 Major depressive disorder, recurrent, mild K29.00 Acute gastritis without bleeding Office Visit 03/20/2018 8:40a [facility] Internal Keven Katz, M54.5 Low back Medicine - [place] M.D. pain Rd F33.0 Major depressive disorder, recurrent, mild Office Visit 02/12/2018 9:40a [facility] Internal [place] Katz, M54.5 Low back Medicine - M.D. pain [place] F33.0 Major depressive disorder, recurrent, mild Office Visit 01/08/2018 9:50a [facility] Internal Medicine - Lesley Montgomery, FAMILY WORKER R[address] [place] [address] F17.210 Nicotine dependence, cigarettes, uncomplicated R06.2 Wheezing Office Visit 12/16/2017 1:00p [facility] Internal Keven Katz, M54.5 Low back Medicine - [place] M.D. pain Rd R11.0 Nausea F33.0 Major depressive disorder, recurrent, mild F17.210 Nicotine dependence, cigarettes, uncomplicated Office Visit 11/14/2017 10:00a Orthopedic Otoniel Abdalla, M25.512 Pain in left Services Of shoulder [facility] S46.012A Strain of musc/tend the rotator cuff of left shoulder, init Office Visit 11/04/2017 3:10p [facility] Internal Lesley Montgomery M54.5 Low back pain Medicine - [place] FAMILY WORKER Rd S46.012A Strain of musc/tend the rotator cuff of left shoulder, init Office Visit 09/20/2017 2:40p [facility] Internal Keven Katz M54.5 Low back Medicine - [place] M.D. pain Rd Office Visit 08/08/2017 9:40a [facility] Internal Keven Katz M54.5 Low back Medicine - [place] M.D. pain Rd F33.0 Major depressive disorder, recurrent, mild Office Visit 06/17/2017 3:00p [facility] Internal Keven Katz M54.5 Low back Medicine - [place] M.D. pain Rd M54.2 Cervicalgia F33.0 Major depressive disorder, recurrent, mild Z23 Encounter for immunization Office Visit 05/16/2017 9:30a [facility] Internal Lesley Montgomery, M54.5 Low back pain Medicine - [place] FAMILY WORKER Rd F17.210 Nicotine dependence, cigarettes, uncomplicated Z00.00 Encntr for general adult medical exam w/o abnormal findings Office Visit 05/02/2017 8:40a [facility] Internal Keven Sterling, M54.5 Low back Medicine - [place] M.D. pain Rd M54.2 Cervicalgia F17.210 Nicotine dependence, cigarettes, uncomplicated Z13.220 Encounter for screening for lipoid disorders Z13.1 Encounter for screening for diabetes mellitus Z12.31 Encntr screen mammogram for malignant neoplasm of breast Office Visit 02/02/2016 Orthopedic Roge Campos, S66.111A Strain flexor 2:00p Services Of Cassius musc/fasc/tend l idx [facility]A. fngr at [facility], init S93.411A Sprain of calcaneofibular ligament of right ankle, init Plan of Treatment Future Appointment(s):12/18/2018 6:00 am - Isabel Buckner PA-C at [facility]12/18/2018 6:00 am - Chapis Rosenbaum MD at [facility]12/17/2018 8:00 am - Silvia Ricardo MD at [facility] Internal Medicine - [place] [address]12/23/2018 8:30 am - Otoniel Abdalla MD at [facility]08/14/2018 - Keven Katz M.D.F33.0 Major depressive disorder, recurrent, mildComments:Continue bupropion.F41.9 Anxiety disorder, unspecifiedNew Medication:Sertraline HCL 50 mg - Take One Tablet By Mouth Every DayComments:We will start sertraline for anxiety symptoms.M54.5 Low back painComments:Pain continues in spite of physical therapy, but the radicular symptoms.I10 Essential (primary) hypertensionNew Medication:Losartan Potassium 50 mg - 1 by mouth every dayComments:Blood pressure high. Start losartan. Keep monitoring blood pressure. Call if it is consistently more than 140/90. Avoid extra salt in your diet.
--- OUTSIDE RECORDS SUMMARY | 2018-12-18 05:47 | XMS REPORT | Continuity of Care Document ---
:1965 External Reference #:[id number] Author Name Martin Valverde Care Team Providers Name Role Phone Silvia Ricardo M.D. Primary Care Physician Unavailable Payers Date Identification Numbers Payment Provider Subscriber Effective: 2017 Policy Number: [id number] Corbin Debbie Connelly Group Number: [id number] [address] PayID: [id number] [place] [address] Effective: 2013 Policy Number: [id number] [employer] Shahzad Jhon Expires: 2016 Group Number: [id number] [address] PayID: [id number] [place] [address] Expires: 2017 Policy Number: [id number] Medicaid Debbie Connelly Group Name: 1 1 [address] PayID: [id number] [place] [address] Advance Directives Type Date Description Status Comment [...] with Lives With spouse 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 Tobacco Use Start: Unknown Current Cigarette Smoker started at about 1 Pack Daily age 15 ETOH Use 11/28/2018 Denies alcohol use Recreational Drug Use Regularly uses Marijuana Tobacco Use Start: Unknown Light tobacco smoker (10 or fewer cigarettes/day) Smoking Status Reviewed: 11/28/18 Light tobacco smoker (10 or fewer cigarettes/day) Exercise Type/Frequency Does not exercise Allergies, Adverse Reactions, Alerts Description No Known Drug Allergies Medications Medication Date Status Form Strength Qnty SIG Indications Ordering Provider Oxycodone-Aceta 11/28 Active Tablets 7.5-325mg 90tab 1 by mouth M43.17 [facility] /2018 s every 4 D. Ellie, hours [...] 25mg 60tab one by mouth M54.5 Silvia s in the Ricardo, evening for one week, then 2 tabs at bedtime Cartia XT 09/26 Active Caps ER 240mg 30cap one by mouth I10 24HR s daily MD Davion Flonase Allergy 06/11 Active Suspension 50mcg/Act 15.80 one spray in J06.9 0ml each nostril Pachikara 1-2 times , M.D. daily. Acetaminophen 05/26 Active Tablets 500mg 180ta 2 tab 3 M54.5 bs times daily Pachikara as needed , M.DTom Pantoprazole 05/[address] 40mg 30tab 1 in the K29.00 Sodium s morning [place] Ricardo MD stomach Bupropion [...] Metronidazole 07/11 Hx Gel 0.75% 45gm one [facility] applicator Gilda, - per vagina 09/02 daily [...] Tablets 5-325mg 60tab 1 tab every M54.5 Matthews taminophen /2017 s 12h as Pachikara - needed. , M.D. 09/02 Prednisone 01/08 Hx Tablets 5mg 28tab taper dose R05 Lesley s start with 7 Montgomery, - tabs (35mg) HEALTHCARE NETWORK CONSULTANT 02/12 and by one tab each in the morning, 6,5,4,3,2,1 Bupropion HCL 12/16 Hx Tablets ER 150mg 30tab once daily F33.0 Keven ER (XL) 24HR s in the Pachikara - morning with , MTomD. 02/12 food Tramadol HCL 12/16 Hx Tablets 50mg 30tab three times M54.5 Keven /2017 s a day as Pachikara - needed , M.D. 02/12 Meloxicam 11/14 Hx Tablets 15mg 60tab 1 by mouth S46.012A Lesley /2017 s every day Montgomery, - for pain. HEALTHCARE NETWORK CONSULTANT 02/12 take food. do not take ibuprofen while taking this Diclofenac 11/[address] 75mg 60tab take 1 S46.012A Lesley s tablet twice Montgomery, - a day with HEALTHCARE NETWORK CONSULTANT 01/08 food Bupropion HCL 05/16 Hx Tablets ER 150mg 30tab one by mouth M54.5 Keven ER ( 12HR s every day Pachikara Det) - , MTomDTom 06/17 Clindamycin HCL 05/15 Hx Capsules 150mg 40cap four times a Matthews s day x 10 Pachikara - days , M.D. 08/08 Ibuprofen Hx Capsules 200mg as needed Unknown /0000 - 02/12 Acetaminophen Hx Tablets 500mg 2 tabs 3 Unknown Extra Strength /0000 times daily - as needed 03/20 for pain Hydrocodone-William Hx Tablets 5-325mg 90tab take one Keven taminophen / s tablet by Pachika - mouth every , M.D. 12/16 8 hours needed; maximum daily dose=3 Ibuprofen 00 Hx Capsules 200mg as needed Unknown /0000 - 05/26 Medications Administered in Office Medication Date Status Form Strength Qnty SIG Indications Ordering Provider Triamcinolone 09/05/ Administered Injection Zaneb (Kenalog) 2017 MD Lianne Triamcinolone 11/14/ Administered Injection Lorraine (Kenalog) 2017 WEN Torres Immunizations CPT Code Status Date Vaccine Lot # [id number] Given 07/03/2018 Influenza Virus Vaccine, Quadrivalent, Split, [id number] Preservative Free [id number] Given 06/17/2017 Influenza Virus Vaccine, Quadrivalent, Split, [id number] Preservative Free Vital Signs Date Vital Result Comment 11/28/2018 3:14pm Height 63 inches 5'3" Weight [...] Date Facility Test Result H/L Range Note Urine [facility] Urine Negative Cutoff: 1 Amphetamine [address] Amphetamine by ng/mL 25 [place] [address] GC/MS [phone] Urine Methamphetamine by GC/MS Negative ng/mL Cutoff: 25 Phentermine-by GC/MS Negative ng/mL Cutoff: 25 Pseudoephedrine/Ephedr GC/MS Negative ng/mL Cutoff: 25 Mda(Ecstacy metabolite) GC/MS See Comment ng/mL Cutoff: 25 2 Mdma(Ecstacy)-by GC/MS Negative ng/mL Cutoff: 25 Urine Amphetamines Interp See Comment 3 Drug Abuse 11/05/2018 [facility] Urine Presumptive Posi Abnormal [address] Amphetamine <SEE NOTE> ng/mL [place], [place] [id number] [phone] Urine Barbiturates Negative ng/mL 5 Urine Benzodiazepines Negative ng/mL 6 Urine Cocaine Negative ng/mL 7 Urine Phencyclidine Negative ng/mL Cutoff: 25 Urine Tetrahydrocannabinol Presumptive Posi <SEE NOTE> Abnormal Cutoff: 50 8 ng/mL Creatinine, Urine 114.6 mg/dL Specific [place] 1.017 pH 6.0 Oxidants Negative 9 Adulterants Comment Normal Codeine, Ur Present ng/mL Abnormal Cutoff: 25 10 Ulxwmrk-5-aupl-glucuronide, Ur Present ng/mL Abnormal 11 Morphine, Ur Not Detected ng/mL Cutoff: 25 12 Ufuamshu-6-ytwt-glucuronide, U Not Detected ng/mL 13 6-monoacetylmorphine, Ur Not Detected ng/mL Cutoff: 25 14 Hydrocodone, Ur Present ng/mL Abnormal Cutoff: 25 15 Norhydrocodone, Ur Present ng/mL Abnormal Cutoff: 25 16 Dihydrocodeine, Ur Present ng/mL Abnormal Cutoff: 25 17 Hydromorphone, Ur Not Detected ng/mL Cutoff: 25 18 Iuhrbbfztccjw0rzdfvdxvhaobvqk Present ng/mL Abnormal 19 Oxycodone, Ur Present ng/mL Abnormal Cutoff: 25 20 Noroxycodone, Ur Present ng/mL Abnormal Cutoff: 25 21 Oxymorphone, Ur Present ng/mL Abnormal Cutoff: 25 22 Jvegifmqdcl-0-jqxf-glucuronide Present ng/mL Abnormal 23 Noroxymorphone, Ur Present ng/mL Abnormal Cutoff: 25 24 Fentanyl, Ur Not Detected ng/mL Cutoff: 2 25 Norfentanyl, Ur Not Detected ng/mL Cutoff: 2 26 Meperidine, Ur Not Detected ng/mL Cutoff: 25 27 Normeperidine, Ur Not Detected ng/mL Cutoff: 25 28 Naloxone, Ur Not Detected ng/mL Cutoff: 25 29 Lzqlfmdt-2-buac-glucuronide, U Not Detected ng/mL 30 Methadone, Ur Not Detected ng/mL Cutoff: 25 31 Eddp, Ur Not Detected ng/mL Cutoff: 25 32 Propoxyphene, Ur Not Detected ng/mL Cutoff: 25 33 Norpropoxyphene, Ur Not Detected ng/mL Cutoff: 25 34 Tramadol, Ur Not Detected ng/mL Cutoff: 25 35 O-desmethyltramadol, Ur Not Detected ng/mL Cutoff: 25 36 Tapentadol, Ur Not Detected ng/mL Cutoff: 25 37 N-desmethyltapentadol, Ur Not Detected ng/mL Cutoff: 50 38 Tostzqkmzv-wnhb-vhsjvuxzhzz, U Not Detected ng/mL 39 Buprenorphine, Ur Not Detected ng/mL Cutoff: 5 40 Norbuprenorphine, Ur Not Detected ng/mL Cutoff: 5 41 Norbuprenorphine glucuronide Not Detected ng/mL Cutoff: 20 42 Opioid Interpretation See Comment 43 THC Confirmation 11/05/2018 [facility] Urine Carboxy 162 ng/mL [address] [place] [address] [phone] Urine THC Interpretation Positive. 45 Laboratory test 07/03/2018 [facility] Cytology SEE RESULT [address] [place] [address] [phone] Drug Abuse 20 05/26/2018 [facility] Urine Amphetamine Negative ng/mL [address] [place] [address] [phone] Urine Barbiturates Negative ng/mL 48 Urine Benzodiazepines Negative ng/mL 49 Urine Cocaine Negative ng/mL 50 Urine Phencyclidine Negative ng/mL Cutoff: 25 Urine Tetrahydrocannabinol Negative ng/mL Cutoff: 50 51 Creatinine, Urine 7.9 mg/dL Specific [place] 1.001 52 pH 6.9 Oxidants Negative 53 Adulterants Comment Normal Codeine, Ur Not Detected ng/mL Cutoff: 25 54 Hqyyjpm-3-xkzp-glucuronide, Ur Not Detected ng/mL 55 Morphine, Ur Not Detected ng/mL Cutoff: 25 56 Jwzywrqu-8-hpud-glucuronide, U Not Detected ng/mL 57 6-monoacetylmorphine, Ur Not Detected ng/mL Cutoff: 25 58 Hydrocodone, Ur Present ng/mL Abnormal Cutoff: 25 59 Norhydrocodone, Ur Present ng/mL Abnormal Cutoff: 25 60 Dihydrocodeine, Ur Not Detected ng/mL Cutoff: 25 61 Hydromorphone, Ur Not Detected ng/mL Cutoff: 25 62 Fibpipyzjsebk2yaukmzsrievepau Not Detected ng/mL 63 Oxycodone, Ur Not Detected ng/mL Cutoff: 25 64 Noroxycodone, Ur Not Detected ng/mL Cutoff: 25 65 Oxymorphone, Ur Not Detected ng/mL Cutoff: 25 66 Nlhnfjwelnm-2-ivru-glucuronide Not Detected ng/mL 67 Noroxymorphone, Ur Not Detected ng/mL Cutoff: 25 68 Fentanyl, Ur Not Detected ng/mL Cutoff: 2 69 Norfentanyl, Ur Not Detected ng/mL Cutoff: 2 70 Meperidine, Ur Not Detected ng/mL Cutoff: 25 71 Normeperidine, Ur Not Detected ng/mL Cutoff: 25 72 Naloxone, Ur Not Detected ng/mL Cutoff: 25 73 Cuvdtlfj-9-dnzl-glucuronide, U Not Detected ng/mL 74 Methadone, Ur Not Detected ng/mL Cutoff: 25 75 Eddp, Ur Not Detected ng/mL Cutoff: 25 76 Propoxyphene, Ur Not Detected ng/mL Cutoff: 25 77 Norpropoxyphene, Ur Not Detected ng/mL Cutoff: 25 78 Tramadol, Ur Not Detected ng/mL Cutoff: 25 79 O-desmethyltramadol, Ur Not Detected ng/mL Cutoff: 25 80 Tapentadol, Ur Not Detected ng/mL Cutoff: 25 81 N-desmethyltapentadol, Ur Not Detected ng/mL Cutoff: 50 82 Kilikxxooa-nmvq-bcssfbyxoeb, U Not Detected ng/mL 83 Buprenorphine, Ur Not Detected ng/mL Cutoff: 5 84 Norbuprenorphine, Ur Not Detected ng/mL Cutoff: 5 85 Norbuprenorphine glucuronide Not Detected ng/mL Cutoff: 20 86 Opioid Interpretation See Comment 87 Laboratory test 10/08/2017 [facility] Troponin-I (TnI) 0.00 ng/ mL <0.[address] [place] [address] [phone] Laboratory test 10/08/2017 [facility] B-Type 17 pg/mL [address] [place] [address] Peptide BNP [phone] Lactic Acid 1.4 mmol/L N 0.5-2.0 89 Inr/Protime 10/08/2017 [facility] Inr 0.90 N 0.77-1.[address] [place] [address] [phone] Laboratory test 10/08/2017 [facility] Partial 31.1 seconds N 26.0-36.[address] [place] [address] PTT [phone] D Dimer Quantitative < 200 ng/mL N Less Than 230 90 CBC Auto Diff 10/08/2017 [facility] White Blood 5.2 10^3/uL N 3.5-10.[address] [place] [address] [phone] Red Blood Count 4.47 10^6/uL N 4.0-5.4 [...] Blood Cells % 0 Laboratory test 10/08/2017 [facility] Troponin-I (TnI) 0.00 ng/ mL <0.04 finding [address] [place] [address] [phone] Laboratory test 10/08/2017 [facility] Magnesium 2.0 mg/dL N 1.9-2.7 finding [address] [place] [address] [phone] Creatine Kinase(CK) 55 U/L N 10-223 TSH (Thyroid Stim Horm) 1.75 mcIU/mL N 0.34-5.60 Comp Metabolic Panel 10/08/2017 [facility] Sodium 134 mmol/L N 133-145 [address] [place] [address] [phone] Potassium 3.7 mmol/L N 3.5-5.0 Chloride 102 [...] Egfr Non- 83.1 >60 Egfr 106.8 >60 91 Laboratory 10/08/2017 [facility] Thyroxine 8.54 N 6.09-12.[address] g/[place] [address] [phone] CKMB 10/08/2017 [facility] CKMB ng/mL 1.1 ng/mL N 0.6-6.[address] [place] [address] [phone] Laboratory 08/01/2017 [facility] Cytology SEE RESULT 92, [address] [place] [address] [phone] Comp Metabolic 05/04/2017 [facility] Sodium 135 mmol/L N 133- [address] [place] [address] [phone] Potassium 4.4 mmol/L N 3.5-5.0 Chloride 104 [...] 91.6 N >60 Egfr 117.8 N >60 94 Lipid Profile 05/04/2017 [facility] Triglycerides 238 mg/dL N 95 (Trig/Chol/HDL) [address] [place] [address] [phone] Cholesterol 214 mg/dL N 96 HDL Cholesterol 42.3 mg/dL N 97 LDL Cholesterol 124 mg/dL N 98 THC Confirmation 05/02/2017 [facility] Urine Carboxy 157 ng/mL N 99, [address] [place] [address] [phone] Urine THC Interpretation Positive. N 101 Drug Abuse 05/02/2017 [facility] Urine Amphetamine Negative ng/ mL N 102 [address] [place] [address] [phone] Urine Barbiturates Negative ng/mL N 103 Urine Benzodiazepines Negative ng/mL N 104 Urine Cocaine Negative ng/mL N 105 Urine Phencyclidine Negative ng/mL N Cutoff: 25 Urine Tetrahydrocannabinol Presumptive Posi <SEE NOTE> ng/mL N Cutoff: 50 106 Creatinine, Urine 51.4 mg/dL N Specific [place] 1.005 N pH 6.9 N Oxidants Negative N 107 Adulterants Comment Normal N Codeine, Ur Not Detected ng/mL N Cutoff: 25 108 Sdaugwm-3-teyq-glucuronide, Ur Not Detected ng/mL N 109 Morphine, Ur Not Detected ng/mL N Cutoff: 25 110 Tidqbtox-9-eaof-glucuronide, U Not Detected ng/mL N 111 6-monoacetylmorphine, Ur Not Detected ng/mL N Cutoff: 25 112 Hydrocodone, Ur Not Detected ng/mL N Cutoff: 25 113 Norhydrocodone, Ur Not Detected ng/mL N Cutoff: 25 114 Dihydrocodeine, Ur Not Detected ng/mL N Cutoff: 25 115 Hydromorphone, Ur Not Detected ng/mL N Cutoff: 25 116 Dcgzqfvmrjjbe9lnsuhznamhjxyez Not Detected ng/mL N 117 Oxycodone, Ur Not Detected ng/mL N Cutoff: 25 118 Noroxycodone, Ur Not Detected ng/mL N Cutoff: 25 119 Oxymorphone, Ur Not Detected ng/mL N Cutoff: 25 120 Beadxjbyrbl-1-ahtc-glucuronide Present ng/mL N 121 Noroxymorphone, Ur Not Detected ng/mL N Cutoff: 25 122 Fentanyl, Ur Not Detected ng/mL N Cutoff: 2 123 Norfentanyl, Ur Not Detected ng/mL N Cutoff: 2 124 Meperidine, Ur Not Detected ng/mL N Cutoff: 25 125 Normeperidine, Ur Not Detected ng/mL N Cutoff: 25 126 Naloxone, Ur Not Detected ng/mL N Cutoff: 25 127 Cxuqoqma-4-vqun-glucuronide, U Not Detected ng/mL N 128 Methadone, Ur Not Detected ng/mL N Cutoff: 25 129 Eddp, Ur Not Detected ng/mL N Cutoff: 25 130 Propoxyphene, Ur Not Detected ng/mL N Cutoff: 25 131 Norpropoxyphene, Ur Not Detected ng/mL N Cutoff: 25 132 Tramadol, Ur Not Detected ng/mL N Cutoff: 25 133 O-desmethyltramadol, Ur Not Detected ng/mL N Cutoff: 25 134 Tapentadol, Ur Not Detected ng/mL N Cutoff: 25 135 N-desmethyltapentadol, Ur Not Detected ng/mL N Cutoff: 50 136 Zhyouwddua-iqzq-espigvxxeoi, U Not Detected ng/mL N 137 Buprenorphine, Ur Not Detected ng/mL N Cutoff: 5 138 Norbuprenorphine, Ur Not Detected ng/mL N Cutoff: 5 139 Norbuprenorphine glucuronide Not Detected ng/mL N Cutoff: 20 140 Opioid Interpretation See Comment N 141 1 [id number] 2 Unknown interfering substance present; unable to obtain results. 3 Chromatographic interference prevents accurate identification. ADDITIONAL INFORMATION This report is intended for use in clinical monitoring and management of patients. It is not intended for use in employment-related testing. This test was developed and its performance characteristics determined by [facility] in a manner consistent with CLIA requirements. This test has not been cleared or approved by the U.S. Food and Drug Administration. Test Performed by: [facility] [address] [place] [address] 4 Presumptive Positive Drug confirmation to follow. Presumptive Positive means that the screening method is positive, but the test needs to be run by a confirmatory method before being finalized. REFERENCE VALUE Cutoff: 500 5 REFERENCE VALUE Cutoff: 200 6 REFERENCE VALUE Cutoff: 100 7 REFERENCE VALUE Cutoff: 150 8 Presumptive Positive Drug confirmation to follow. Presumptive Positive means that the screening method is positive, but the test needs to be run by a confirmatory method before being finalized. ADDITIONAL INFORMATION This report is intended for use in clinical monitoring or management of patients. It is not intended for use in employment-related testing. 9 REFERENCE VALUE Cutoff: 200 mg/L 10 Tylenol 3 11 Metabolite of codeine REFERENCE VALUE Cutoff: 100 12 Veronica Shaw MS Contin; Also a minor metabolite (10%) of codeine and can be seen in low concentrations (<2,000 ng/mL) with poppy seed ingestion. 13 Metabolite of morphine REFERENCE VALUE Cutoff: 100 14 Metabolite of heroin 15 Lortab, Croton, Vicodin; Also a very minor metabolite of codeine and impurity (<1%) of oxycodone. 16 Metabolite of hydrocodone 17 Metabolite of hydrocodone 18 Dilaudid, Exalgo; Also a metabolite of hydrocodone and a minor (<5%) metabolite of morphine. 19 Metabolite of hydromorphone REFERENCE VALUE Cutoff: 100 20 Endocet, Percocet, Oxycontin 21 Metabolite of oxycodone 22 Numorphan, Opana; Also a metabolite of oxycodone. 23 Metabolite of oxymorphone REFERENCE VALUE Cutoff: 100 24 Metabolite of oxymorphone 25 Actiq, Duragesic, Fentora 26 Metabolite of fentanyl 27 Demerol 28 Metabolite of meperidine 29 Narcan 30 Metabolite of naloxone REFERENCE VALUE Cutoff: 100 31 Dolophine 32 Metabolite of methadone 33 Darvon, Darvocet 34 Metabolite of propoxyphene 35 Tradol, Ultram, Ultracet 36 Metabolite of tramadol 37 Nucynta 38 Metabolite of tapentadol 39 Metabolite of tapentadol REFERENCE VALUE Cutoff: 100 40 Buprenex, Suboxone 41 Metabolite of buprenorphine 42 Metabolite of buprenorphine 43 Test detected the presence of both codeine and its metabolite (hocnifp-0-eiiv-glucuronide). Suspect use of codeine within the past three days. Test detected the presence of hydrocodone, two of its metabolites (norhydrocodone and dihydrocodeine), and yxehaxwwoslit-5-zsow-glucuronide (metabolite of hydromorphone). Suspect use of hydrocodone and/or hydromorphone within the past three days. Trace amounts of hydrocodone can also be found as an impurity in hydromorphone. Test detected the presence of oxycodone and several metabolites (noroxycodone, oxymorphone, noroxymorphone, and tsxneenejuz-7-wfqs-glucuronide). Suspect use of oxycodone and/or oxymorphone within the past three days. ADDITIONAL INFORMATION This test was developed and its performance characteristics determined by [facility] in a manner consistent with CLIA requirements. This test has not been cleared or approved by the U.S. Food and Drug Administration. Test Performed by: [facility] - [address] [address] 44 REFERENCE VALUE Cutoff: 3.0 45 ADDITIONAL INFORMATION This report is intended for use in clinical monitoring and management of patients. It is not intended for use in employment-related testing. This test was developed and its performance characteristics determined by [facility] in a manner consistent with CLIA requirements. This test has not been cleared or approved by the U.S. Food and Drug Administration. Test Performed by: [facility] [employer] - [address] [address] 46 SEE RESULT BELOW Name: DEBBIE CONNELLY : [address]: Teddy Vo MD Acct: [id number] Unit: [id number] AGE: 52 Location: [facility] Re/27/18 SEX: F Status: REG REF SPEC: [id number] WILLIAM: 07/03/[address]: Teddy Vo MD REQ: [id number] RECD: 07/03/18 STATUS: SOUT _ ORDERED: TP IMAGE ANALYS, HPV/Thin Prep COMMENTS: [id number] Negative for Intraepithelial lesion or Malignancy Shift [...] N Signed by and Reported on: ZAK Saini(ASC) 1053 This Pap test was evaluated with the assistance of the [employer] Imaging System. Due to cytologic findings at the per diem nurse microscope, comprehensive manual rescreening by a Metal Hanging Supervisor may be required. The Pap Smear is [...] years. END OF REPORT DEPARTMENT OF PATHOLOGY, [address] [place] [address] Eugenio Mayberry M.D. Director [facility] # [id number] REFERENCE VALUE Cutoff: 500 48 REFERENCE VALUE Cutoff: 200 49 REFERENCE VALUE Cutoff: 100 50 REFERENCE VALUE Cutoff: 150 51 ADDITIONAL INFORMATION This report is intended for use in clinical monitoring or management of patients. It is not intended for use in employment-related testing. 52 Manually Verified 53 REFERENCE VALUE Cutoff: 200 mg/L 54 Tylenol 3 55 Metabolite of codeine REFERENCE VALUE Cutoff: 100 56 Veronica Shaw, MS Contin; Also a minor metabolite (10%) of codeine and can be seen in low concentrations (<2,000 ng/mL) with poppy seed ingestion. 57 Metabolite of morphine REFERENCE VALUE Cutoff: 100 58 Metabolite of heroin 59 Lortab, Croton, Vicodin; Also a very minor metabolite of codeine and impurity (<1%) of oxycodone. 60 Metabolite of hydrocodone 61 Metabolite of hydrocodone 62 Dilaudid, Exalgo; Also a metabolite of hydrocodone and a minor (<5%) metabolite of morphine. 63 Metabolite of hydromorphone REFERENCE VALUE Cutoff: 100 64 Endocet, Percocet, Oxycontin 65 Metabolite of oxycodone 66 Numorphan, Opana; Also a metabolite of oxycodone. 67 Metabolite of oxymorphone REFERENCE VALUE Cutoff: 100 68 Metabolite of oxymorphone 69 Actiq, Duragesic, Fentora 70 Metabolite of fentanyl 71 Demerol 72 Metabolite of meperidine 73 Narcan 74 Metabolite of naloxone REFERENCE VALUE Cutoff: 100 75 Dolophine 76 Metabolite of methadone 77 Darvon, Darvocet 78 Metabolite of propoxyphene 79 Tradol, Ultram, Ultracet 80 Metabolite of tramadol 81 Nucynta 82 Metabolite of tapentadol 83 Metabolite of tapentadol REFERENCE VALUE Cutoff: 100 84 Buprenex, Suboxone 85 Metabolite of buprenorphine 86 Metabolite of buprenorphine 87 Test detected the presence of hydrocodone and one of its metabolites (norhydrocodone). Suspect use of hydrocodone within the past three days. ADDITIONAL INFORMATION This test was developed and its performance characteristics determined by [facility] in a manner consistent with CLIA requirements. This test has not been cleared or approved by the U.S. Food and Drug Administration. Test Performed by: [facility] [address] [place] [address] 88 >100 to <200 pg/mL: likely compensated congestive heart failure (CHF) 200 to 400 pg/mL: likely moderate CHF >400 pg/mL: likely moderate to severe CHF 89 [facility] Severe Sepsis and Septic Shock Management Bundle Measure requires all lactic acids initially measuring >2.0 mmol/L be repeated. 90 Please note: The following may produce a false positive D Dimer test: - Rheumatoid factor greater than 60 IU/ml - Plasma hemoglobin greater than 0.05 gm/dl - Bilirubin greater than 50 mg/dl - Lipids greater than 1000 mg/dl - FDP greater than 20 ug/ml 91 Because ethnic data is not always readily [...] 15-29 5 Kidney failure <15 (or dialysis) 92 [id number] SEE RESULT BELOW Name: DEBBIE CONNELLY : [address]: Keven Katz MD Acct: [id number] Unit: [id number] AGE: 51 Location: [facility] Re08/01/17 SEX: F Status: REG REF SPEC: [id number] WILLIAM: 08/01/17- SUBM DR: Keven Katz MD REQ: [id number] RECD: 08/01/17 STATUS: CARYN WILLARD DR: Andrea Barnes MD _ ORDERED: NG THIN LAYER COMMENTS: [id number] FINAL DIAGNOSIS Breast, left @ 7 o'clock, [...] 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 Director [facility] # [id number] 94 Because ethnic data is not always readily [...] 15-29 5 Kidney failure <15 (or dialysis) 95 Desirable <150 Borderline high 150-199 High 200-499 Very High >500 96 Desirable <200 Borderline high 200-239 High >239 97 Low <40 Desirable: 40-60 High: >60 98 Desirable: <100 mg/dL Near Optimal: 100-129 mg/dL Borderline High: 130-159 mg/dL High: 160-189 mg/dL Very High: >189 mg/dL 99 [id number] 100 REFERENCE VALUE Cutoff: 3.0 101 ADDITIONAL INFORMATION This report is intended for use in clinical monitoring and management of patients. It is not intended for use in employment-related testing. This test was developed and its performance characteristics determined by [facility] in a manner consistent with CLIA requirements. This test has not been cleared or approved by the U.S. Food and Drug Administration. Test Performed by: [facility] [employer] - [address] [address] 102 REFERENCE VALUE Cutoff: 500 103 REFERENCE VALUE Cutoff: 200 104 REFERENCE VALUE Cutoff: 100 105 REFERENCE VALUE Cutoff: 150 106 Presumptive Positive Drug confirmation to follow. Presumptive Positive means that the screening method is positive, but the test needs to be run by a confirmatory method before being finalized. ADDITIONAL INFORMATION This report is intended for use in clinical monitoring or management of patients. It is not intended for use in employment-related testing. 107 REFERENCE VALUE Cutoff: 200 mg/L 108 Tylenol 3 109 Metabolite of codeine REFERENCE VALUE Cutoff: 100 110 Veronica Shaw, Contin; Also a minor metabolite (10%) of codeine and can be seen in low concentrations (<2,000 ng/mL) with poppy seed ingestion. 111 Metabolite of morphine REFERENCE VALUE Cutoff: 100 112 Metabolite of heroin 113 Lortab, [place], Vicodin; Also a very minor metabolite of codeine and impurity (<1%) of oxycodone. 114 Metabolite of hydrocodone 115 Metabolite of hydrocodone 116 Dilaudid, Exalgo; Also a metabolite of hydrocodone and a minor (<5%) metabolite of morphine. 117 Metabolite of hydromorphone REFERENCE VALUE Cutoff: 100 118 Endocet, Percocet, Oxycontin 119 Metabolite of oxycodone 120 Numorphan, Opana; Also a metabolite of oxycodone. 121 Metabolite of oxymorphone REFERENCE VALUE Cutoff: 100 122 Metabolite of oxymorphone 123 Actiq, Duragesic, Fentora 124 Metabolite of fentanyl 125 Demerol 126 Metabolite of meperidine 127 Narcan 128 Metabolite of naloxone REFERENCE VALUE Cutoff: 100 129 Dolophine 130 Metabolite of methadone 131 Darvon, Darvocet 132 Metabolite of propoxyphene 133 Tradol, Ultram, Ultracet 134 Metabolite of tramadol 135 Nucynta 136 Metabolite of tapentadol 137 Metabolite of tapentadol REFERENCE VALUE Cutoff: 100 138 Buprenex, Suboxone 139 Metabolite of buprenorphine 140 Metabolite of buprenorphine 141 Test detected the presence of [id number]-glucuronide (metabolite of oxymorphone). Suspect use of oxymorphone within the past three days. ADDITIONAL INFORMATION This test was developed and its performance characteristics determined by [facility] in a manner consistent with CLIA requirements. This test has not been cleared or approved by the U.S. Food and Drug Administration. Test Performed by: [facility] [address] [address] Procedures Date Code Description Status 09/19/2018 [id number] Mammogram Completed 09/05/201898797 Inject/Drain Joint/Bursa Major W/O US Completed 11/14/201758706 Inject/Drain Joint/Bursa Major W/O US Completed 07/01/2017 [id number] Mammogram Completed 02/08/2010 [id number] Mammogram Completed Encounters Type Date Location Provider Dx Diagnosis Office Visit 11/05/2018 Telecommunications Technician Internal Silvia Ricardo MD I10 Essential ( primary) 10:40a Medicine - [place] F33.0 Major depressive disorder, recurrent, mild M54.5 Low back pain F17.210 Nicotine dependence, cigarettes, uncomplicated J06.9 Acute upper respiratory infection, unspecified 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 rotator cuff of left shoulder, init M75.42 Impingement syndrome of left shoulder M75.22 Bicipital tendinitis, left shoulder Office 10/15/2018 Neurosurgery Vassilios M43.16 Spondylolisthesis, Visit 8:30a Services Of Pako Rosenbaum MD lumbar region M47.26 Other spondylosis with radiculopathy, lumbar region Office Visit 09/26/2018 11:00a [facility] Internal Silvia Ricardo MD M54.5 Low back pain Medicine - [place] I10 Essential (primary) hypertension F33.0 Major depressive disorder, recurrent, mild Office Visit 09/05/2018 9:00a Orthopedic Otoniel Abdalla, S46.012A Strain of Services Of MD john/geno the C.M.A. rotator cuff of left shoulder, init M25.512 Pain in left shoulder Office Visit 09/02/2018 1:20p [facility] Internal Keven Katz, F33.0 Major depressive Medicine - M.D. disorder, [address] recurrent, mild M54.5 Low back pain M25.512 Pain in left shoulder I10 Essential (primary) hypertension Office Visit 08/14/2018 3:20p [facility] Internal Keven Katz, F33.0 Major depressive Medicine - M.D. 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 F33.0 Major depressive disorder, recurrent, mild K29.00 Acute gastritis without bleeding Office Visit 03/20/2018 8:40a [facility] Internal Keven Katz M54.5 Low back Medicine - [place] M.D. pain Rd F33.0 Major depressive disorder, recurrent, mild Office Visit 02/12/2018 9:40a [facility] Internal Everett Brito4.5 Low back Medicine - M.D. pain [place] F33.0 Major depressive disorder, recurrent, mild Office Visit 01/08/2018 9:50a [facility] Internal Medicine - Lesley Montgomery, HEALTHCARE NETWORK CONSULTANT [address] F17.210 Nicotine dependence, cigarettes, uncomplicated R06.2 Wheezing Office Visit 12/16/2017 1:00p [facility] Internal Everett Brito4.5 Low back Medicine - [place] M.D. pain Rd R11.0 Nausea F33.0 Major depressive disorder, recurrent, mild F17.210 Nicotine dependence, cigarettes, uncomplicated Office Visit 11/14/2017 10:00a Orthopedic Otoniel Abdalla, M25.512 Pain in left Services Of shoulder C.M.A. S46.012A Strain of musc/tend the rotator cuff of left shoulder, init Office Visit 11/04/2017 3:10p [facility] Internal Everett Mathews4.5 Low back pain Medicine - [place] [employer] [address] S46.012A Strain of musc/tend the rotator cuff of left shoulder, init Office Visit 09/20/2017 2:40p [facility] Internal Everett Brito4.5 Low back Medicine - [place] M.D. pain Rd Office Visit 08/08/2017 9:40a [facility] Internal Everett Brito4.5 Low back Medicine - [place] M.D[address] pain Rd F33.0 Major depressive disorder, recurrent, mild Office Visit 06/17/2017 3:00p [facility] Internal Everett Brito4.5 Low back Medicine - [place] M.D[address] pain Rd M54.2 Cervicalgia F33.0 Major depressive disorder, recurrent, mild Z23 Encounter for immunization Office Visit 05/16/2017 9:30a [facility] Internal Lesley Montgomery, M54.5 Low back pain Medicine - [place] [employer] [address] F17.210 Nicotine dependence, cigarettes, uncomplicated Z00.00 Encntr for general adult medical exam w/o abnormal findings Office Visit 05/02/2017 8:40a [facility] Internal Keven Katz, M54.5 Low back Medicine - [place] M.D[address] pain [address] M54.2 Cervicalgia F17.210 Nicotine dependence, cigarettes, uncomplicated Z13.220 Encounter for screening for lipoid disorders Z13.1 Encounter for screening for diabetes mellitus Z12.31 Encntr screen mammogram for malignant neoplasm of breast Office Visit 02/02/2016 Orthopedic Roge Campos, S66.111A Strain flexor 2:00p Services Of Cassius musc/fasc/tend l idx C.M.A. fngr at [facility] lv, init S93.411A Sprain of calcaneofibular ligament of right ankle, init Plan of Treatment Future Appointment(s):12/18/2018 6:00 am - Isabel Buckner PA-C at [facility]12/18/2018 6:00 am - Chapis Rosenbaum MD at [facility]12/09/2018 1:30 pm - Chapis Rosenbaum MD at [facility]12/17/2018 8:00 am - Silvia Ricardo MD at [facility] Internal Medicine - [address]12/23/2018 8:30 am [...]
[2018-12-18] MEDS ORDERED: Gabapentin CAP(*) 300 MG PO ONE (06:00)
[2018-12-18] MEDS ORDERED: celeCOXIB CAP* 200 MG PO ONE (06:00)
[2018-12-18] MEDS ORDERED: Acetaminophen TAB* 325 MG PO ONE (06:00)
[2018-12-18] MEDS ORDERED: Dexamethasone IV* 4 MG/ML 1 ML (4 MG) IV SLOW PU ONE (06:00)
[2018-12-18] MEDS ORDERED: Lactated Ringers 1000 ML Bag* 1,000 ML IV SCH (06:00)
[2018-12-18] MEDS ORDERED: Famotidine IV* 10 MG/ML 2 ML (20 mg) IV ONE (06:00)
[2018-12-18] MEDS ORDERED: Gabapentin CAP(*) 300 MG ONE (06:07)
[2018-12-18] MEDS ORDERED: Dexamethasone IV* 4 MG/ML 1 ML (4 MG) ONE (06:07)
[2018-12-18] MEDS ORDERED: ceFAZolin 2 GM in NS PREMIX(*) 2 GM/100 ML BAG IVPB ONE (06:07)
[2018-12-18] MEDS ORDERED: Famotidine IV* 10 MG/ML 2 ML (20 mg) ONE (06:07)
[2018-12-18] MEDS ORDERED: celeCOXIB CAP* 100 MG ONE (06:07)
[2018-12-18] MEDS ORDERED: Acetaminophen TAB* 325 MG ONE (06:07)
[2018-12-18] MEDS ORDERED: Buffered Lidocaine 1% SYRIN* 1 ML/SYRINGE INTRADERM ONE (06:08)
[2018-12-18] MEDS ORDERED: Bacitracin IV* 50,000 UNITS INJ ONE ×2 (06:27→12:40)
[2018-12-18] MEDS ORDERED: Lidocaine 1% MPF wEPI 200,000* 30 ML SDV ONE (06:27)
[2018-12-18] MEDS ORDERED: Thrombin 5,000 UNITS* 1 APPLIC KIT - topical use - TOPICAL ONE (06:27)
[2018-12-18] MEDS ORDERED: Propofol* 10 MG/ML 20 ML BTL ONE ×2 (07:22→09:12)
[2018-12-18] MEDS ORDERED: Succinylcholine* 20 MG/ML 10 ML VIAL ONE (07:22)
[2018-12-18] MEDS ORDERED: fentaNYL* 50 MCG/ML 2 ML VIAL (100 MCG VIAL) ONE ×2 (07:22→13:59)
[2018-12-18] MEDS ORDERED: Propofol* 500 MG/50 ML BTL ONE ×2 (07:22→09:12)
[2018-12-18] MEDS ORDERED: Midazolam* 1 MG/ML 2 ML VIAL (2 MG) ONE (07:22)
[2018-12-18] MEDS ORDERED: Lidocaine 2% PF * 5 ML VIAL ONE (07:22)
[2018-12-18] MEDS ORDERED: KETAMINE HCL* 50 MG/ML 10 ML VIAL ONE (07:38)
[2018-12-18] MEDS ORDERED: HYDROmorphone INJ1* 1 MG/ML SYRINGE ONE ×4 (07:39→14:00)
[2018-12-18] MEDS ORDERED: Artificial Tears* 15 ML BTL ONE (07:41)
[2018-12-18] MEDS ORDERED: Propofol* 200 ML ONE (09:17)
[2018-12-18] MEDS ORDERED: Rocuronium* 10 MG/ML VIAL ONE (09:47)
[2018-12-18] MEDS ORDERED: HYDROcodone/ACETAMIN 5-325 MG* 1 TAB PO PRN (10:45)
[2018-12-18] MEDS ORDERED: Naloxone* 0.4 MG/ML 1 ML VIAL IV PRN (10:45)
[2018-12-18] MEDS ORDERED: DiMENhydriNATE IV* 50 MG/ML VIAL IV PUSH PRN (10:45)
[2018-12-18] MEDS ORDERED: Ketorolac INJ* 30 MG/ML 1 ML VIAL IV PRN (10:45)
[2018-12-18] MEDS ORDERED: diPHENhydraMINE IV* 50 MG/ML 1 ml VIAL (BENADRYL) IV PRN (10:45)
[2018-12-18] MEDS ORDERED: Acetaminophen IV 1GM/100ML * 1,000 MG/100 ML VIAL IVPB ONE (10:45)
[2018-12-18] MEDS ORDERED: ceFAZolin VIAL(*) VIAL ONE (12:28)
[2018-12-18] MEDS ORDERED: Ondansetron INJ* 2 MG/ML VIAL ONE (13:01)
[2018-12-18] MEDS ORDERED: Ketorolac INJ* 30 MG/ML 1 ML VIAL ONE (13:44)
[2018-12-18] MEDS ORDERED: Acetaminophen IV 1GM/100ML * 100 ML ONE (13:45)
[2018-12-18] MEDS ORDERED: HYDROcodone/ACETAMIN 5-325 MG* 1 TAB ONE (14:00)
[2018-12-18] MEDS ORDERED: Ondansetron INJ* 2 MG/ML VIAL IV PRN (14:00)
[2018-12-18] MEDS ORDERED: Magnesium Hydroxide LIQ* 30 ML UDC PO PRN (14:00)
[2018-12-18] MEDS: fentaNYL* 50 MCG/ML 2 ML VIAL (100 MCG VIAL) IV PRN ×2 (14:01→14:16)
[2018-12-18] MEDS: HYDROmorphone INJ1* 1 MG/ML SYRINGE IV PRN ×2 (14:01→15:08)
[2018-12-18] MEDS ORDERED: Albuterol HFA INHALER* 8 gm MDI INH PRN (14:16)
[2018-12-18] MEDS: Lactated Ringers 1000 ML Bag* 1,000 ML IV SCH (15:51)
--- NOTE | 2018-12-18 16:37 | OP ---
DATE OF OPERATION: 12/18/18 - ROOM #340 DATE OF : 67 SURGEON: Chapis Rosenbaum MD PET CARE WORKER: ALEXANDRIA Ty. The case was done with the assistance of surgical PA because of the complexity of the case. ANESTHESIA: General. PRE-OP DIAGNOSES: Degenerative disk disease and spondylolisthesis, L4-L5 and L5 -S1. POST-OP DIAGNOSES: Degenerative disk disease and spondylolisthesis, L4-L5 and L5-S1. OPERATIVE PROCEDURE: The patient underwent left L4-L5 and L5-S1 MIS TLIF with PEEK interbody expandable cages and locally harvested bone graft, iliac crest bone graft through separate incision, DBX and pedicle screws, L4, L5, and S1 with intraoperative monitoring and intraoperative stereotactic navigation. ESTIMATED BLOOD LOSS: 50 mL. COMPLICATIONS: None. SUMMARY: The patient is a very pleasant 53-year-old female with complaints of chronic back pain radiating to the left lower extremity. She had the MRI findings consistent with grade 1 spondylolisthesis at L4-L5 and L5-S1 with degenerative disk disease and bilateral neural foraminal stenosis. She failed conservative treatment modalities and she was offered the option of surgical intervention in the form of left L4-L5 and L5-S1 MIS TLIF. I discussed and explained in extend to the patient and her regarding expectations, limitations, possible complications of the procedure with complications including, but not limited to bleeding, infection, risks of injury to adjacent structures, coma, paralysis, , need for additional procedure, anesthesia risks, stroke, blindness, cancer, instability, hardware failure, adjacent level disease, pseudoarthrosis, spinal fluid leak, bowel or bladder injury, loss of bladder and bowel control, injury to the large vessels, need for tracheostomy or gastrostomy, need for additional procedures, anesthesia risks. The patient was agreeable to proceed with surgery and informed consent was obtained. She understood that her condition may not improve and in fact, may get worse after surgery and that she may need to have additional procedures in the future. She also understood that the operative plan may be modified according to the intraoperative findings and conditions and that the case may be abandoned or done in more than one stages and that she may require a prolonged ICU stay. Of note, the patient's urine drug test was tested in Dr. Hernández's office and the first specimen was positive for cocaine, although the confirmatory test was negative. On further questioning, the patient admitted to having used cocaine several weeks ago, but no recent use. She understood the risks of cocaine use including paralysis and . DESCRIPTION OF PROCEDURE: The patient was brought to the operating room, was placed under general anesthesia by the anesthesia team. She was carefully positioned prone on a Mj table and all bony prominences were meticulously padded. The skin was prepped and draped in the standard fashion and after appropriate surgical pauses and patient identification, a small incision over the right iliac crest was performed with a #10 surgical blade after infiltrating the skin with local anesthetic. Incision was carried down with Bovie cautery and the Corex needle was inserted through the assistance of Jamshidi needle in order to obtain bone graft for the arthrodesis part of the procedure. Through the same incision, the navigation star was secured in place and intraoperative O-arm imaging was obtained. The patient's data was transferred to the navigation platform and with the use of navigation, the trajectories over the pedicle screws at L4, L5, and S1 was marked on the skin. Two longitudinal paramedian incisions were marked and skin was infiltrated with local anesthetic and a #10 surgical blade was used to incise the skin. The incision was carried down to the dorsal fascia with the use of Bovie cautery. The pedicles of L4, L5, and S1 were cannulated with use of a high-speed drill, awl-tip tap and pedicle screws were inserted with 7.5 x 14 mm screws for the S1 level and 6.5 x 45 mm screws for the rest of the levels. Then, attention was brought to insert the METRx tubular retractor over a series of dilators with the assistance of navigation. The 4-5 level was first operated on and after placement of the METRx tubular retractor, the microscope was brought into the field and the left lamina of L4 was exposed with Bovie cautery. High-speed drill and Kerrison punches were used to perform a partial laminectomy and medial facetectomy and pars partial resection. That facet was removed and was saved after the arthrodesis part of the procedure. The ligamentum flavum was then gently removed with Kerrison punches and the lateral part of the thecal sac was readily identified. This was gently retracted medially. After meticulous hemostasis was confirmed with bipolar cautery, a foraminotomy was performed at the L5 nerve root level. This was performed with the Kerrison punches. Then attention was brought to prepare this space for the arthrodesis. After the annulus fibrosus was incised with a N15 blade, this space was prepared with use of pituitary rongeurs , Kerrison punches, series of dilators and curettes. An Elevate Medtronic 9 mm height expandable cage was inserted after this space was filled with a mixture of bone graft with locally harvested bone graft, iliac crest bone graft and DBX while the interbody spacer was also filled the same material. After the expansion of the cage and confirmation of meticulous hemostasis and copious irrigation and meticulous inspection, the tubular retractor was gently removed and the procedure was repeated for the L5- S1 level. Another Elevate expandable cage with 10 mm height was then inserted and also expanded. Then attention was brought to connect the screw heads with 2 cobalt chrome rods. After sizing the appropriate length of the 2 rods; a 65 mm on the right and 55 mm on the left were then inserted and secured in place with screw head caps. Then another O-arm imaging was obtained and confirmed excellent placement of all hardware. The extension towers were then gently removed as well as the navigation star after final tightening of the screw head caps. The dorsal fascia defects were approximated with 0 interrupted Vicryl sutures while the subcutaneous tissue was approximated with 2-0 interrupted Vicryl sutures. The skin was then covered with Dermabond. At the end of procedure all counts were reported to be correct. The patient remained hemodynamically stable throughout the case. Intraoperative electrophysiological monitoring remained stable throughout the case. The patient at the end of the procedure was turned supine, was extubated and was transferred to recovery in excellent condition. The case was done with the assistance of surgical PA because of the complexity of the case. [id number]/[facility] #: [id number] BARBARA
--- NOTE | 2018-12-18 18:13 | CONSULT ---
Consult Consult: INPATIENT PAIN CONSULTATION Debbie Connelly is a 53 year old female. She worked in [employer] for years and has had low back pain for years. 8 or [address] Fifi Franklin. She was given hydrocodone. She saw Dr. Franklin until Dr. Franklin closed her practice. She then saw Dr. Ricardo, and then transferred to Dr. Katz. She most recently was seeing Dr. Argueta. She was on Percocet 7.5/325 three times a day. She had a recent MRI done in August 2018. It showed a spondylolisthesis at L4/5 and L5/ S1. She was sent to Dr. Rosenbaum. She was [place] [facility] and had a left L4/5 and L5/S1 MIS TLIF. I am asked to see her PAST MEDICAL HISTORY: cocaine and alcohol abuse. She says she went through drug court and rehab 20 years ago and has been sober save for a few minor relapses. HTN. Allergies Allergy/AdvReac Type Severity Reaction Status Date / Time No Known Allergies Allergy Verified 12/18/18 06:26 Current Medications Hydrocodone Bitart/Acetaminophen ([place] 5-325 Tab*) 2 tab PO ONCE PRN PRN Reason: PAIN - MODERATE Last Admin: 12/18/18 14:02 Dose: 2 tab Albuterol (Ventolin Hfa Inhaler*) 2 puff INH Q4H PRN PRN Reason: SOB/WHEEZING Amitriptyline HCl (Elavil Tab*) 50 mg PO BEDTIME IGOR Bupropion HCl (Bupropion Xl*) 300 mg PO QAM IGOR Diltiazem HCl (Cardizem Cd Cap*) 240 mg PO QAM IGOR Dimenhydrinate (Dramamine Iv*) 25 mg IV PUSH ONCE PRN PRN Reason: NAUSEA/VOMITING Diphenhydramine HCl (Benadryl Iv*) 25 mg IV ONCE PRN PRN Reason: ITCHING Fentanyl Citrate (Fentanyl*) 50 mcg IV Q2M PRN PRN Reason: PAIN - MODERATE Last Admin: 12/18/18 14:16 Dose: 50 mcg Hydromorphone HCl (Dilaudid Inj1s*) 0.5 mg IV Q10M PRN PRN Reason: PAIN - SEVERE Last Admin: 12/18/18 15:08 Dose: 0.5 mg Lactated Ringer's (Lactated Ringers 1000 Ml Bag*) 1,000 mls @ 125 mls/hr IV PER RATE [facility] Last Admin: 12/18/18 06:38 Dose: 125 mls/hr Lactated Ringer's (Lactated Ringers 1000 Ml Bag*) 1,000 mls @ 75 mls/hr IV .per rate [facility] Last Admin: 12/18/18 15:51 Dose: 75 mls/hr Ketorolac Tromethamine (Toradol Inj*) 30 mg IV ONCE PRN PRN Reason: PAIN - MILD Last Admin: 12/18/18 13:46 Dose: 30 mg Magnesium Hydroxide (Milk Of Magnesia Liq*) 30 ml PO DAILY PRN PRN Reason: CONSTIPATION Naloxone HCl (Narcan*) 0.08 mg IV Q2M PRN PRN Reason: severe induced resp depression Ondansetron HCl (Zofran Inj*) 4 mg IV Q6H PRN PRN Reason: NAUSEA/VOMITING Oxycodone HCl (Roxycodone Tab*) 10 mg PO Q4H PRN PRN Reason: PAIN Pantoprazole Sodium (Protonix Tab*) 40 mg PO QAM IGOR Sertraline HCl (Zoloft*) 100 mg PO QAM IGOR Varenicline (Chantix (Nf)) 1 mg PO QAM [facility]; Protocol SOCIAL HISTORY: Says she quit smoking a month ago. Denies alcohol. [place] Vital Signs Temp Pulse Resp BP Pulse Ox 97.8 F 66 18 120/73 99 12/18/18 17:31 12/18/18 17:31 12/18/18 17:31 12/18/18 17:31 12/18/18 17:31 EXAM: LUNGS: Clear HEART: reg rhythm ABDOMEN: Soft EXTREMITIES: normal tone BACK: Wound covered NEUROLOGIC: Sensation intact. Moves legs ASSESSMENT: 1. Left L4/5, L5/S1 MIS TLIF 2. History of cocaine abuse, alcohol abuse PLAN: She has an ORT score of 12, so we have to be careful with opioids. I think she might do well with methadone in the long run. Will start methadone here. I will start her on 5 mg TID although she may need more than that. Hopefully, can go home on Methadone tomorrow or Saturday.
[2018-12-18] MEDS: oxyCODONE TAB* 5 MG TAB PO PRN (18:46)
[2018-12-18] MEDS: Docusate CAP* 100 MG PO SCH (20:18)
[2018-12-18] MEDS: Methadone TAB* 5 MG PO SCH (20:19)
[2018-12-18] MEDS ORDERED: Senna TAB PO SCH (21:00)
[2018-12-18] MEDS ORDERED: Amitriptyline TAB* 50 MG PO SCH (21:00)
[2018-12-19] MEDS: oxyCODONE TAB* 5 MG TAB PO PRN (04:14)
[2018-12-19] MEDS: Lactated Ringers 1000 ML Bag* 1,000 ML IV SCH (04:16)
--- NOTE | 2018-12-19 08:18 | PN ---
Progress Note - Progress Note Date of Service: 12/19/18 SOAP: Subjective: [S/p left L4-5, L5-S1 TLIF POD #1 Feels better today than yesterday post-op Reports back pain and stiffness with movement Denies numbness and pain in lower extremities Denies nausea, vomiting, headache, chills Dr. Hernández consulted for pain management, recommends methadone ] Objective: [ Vital Signs: Temp Pulse Resp BP Pulse Ox 97.9 F 74 18 127/64 92 12/19/18 07:41 12/19/18 07:41 12/19/18 07:41 12/19/18 07:41 12/19/18 07:41 General: Alert, laying comfortably in bed Neuro: Motor and sensory intact Incision: Intact, no swelling, tenderness. Dressings in place ] Assessment: [Satisfactory post-op] Plan: [1. DC [place] 2. Methadone per Dr. Hernández 3. PT evaluation today 4. Lumbar XR today 5. Possible DC home today]
[2018-12-19] MEDS: Docusate CAP* 100 MG PO SCH (08:40)
[2018-12-19] MEDS: Methadone TAB* 5 MG PO SCH ×2 (08:41→13:42)
[2018-12-19] MEDS ORDERED: Sertraline* 100 MG TAB PO SCH (09:00)
[2018-12-19] MEDS ORDERED: CMCS:Varenicline (NF) 1 MG TAB PO SCH (09:00)
[2018-12-19] MEDS ORDERED: BuPROPion XL* 300 MG TAB.XL PO SCH (09:00)
[2018-12-19] MEDS ORDERED: Diltiazem CD CAP* 240 MG PO SCH (09:00)
[2018-12-19] MEDS ORDERED: Pantoprazole TAB * 40 MG TAB PO SCH (09:00)
[2018-12-19 12:03] VITALS: BP 125/72
== END 2018-12-19 16:30 | disposition home or self-care (01) | DRG 304 ==
LOC: AA 05:43 → SSU 13:53
PROVIDERS: ADMIT Neurological Surgery; ATTEND Neurological Surgery
PROC: 0SB40ZZ Excision of Lumbosacral Disc, Open Approach (ICD-10-PCS; 2018-12-18)
PROC: 4A11X4G Monitoring of Peripheral Nervous Electrical Activity, Intraoperative, External Approach (ICD-10-PCS; 2018-12-18)
PROC: 0QB30ZZ Excision of Left Pelvic Bone, Open Approach (ICD-10-PCS; 2018-12-18)
PROC: 8E0WXBZ Computer Assisted Procedure of Trunk Region (ICD-10-PCS; 2018-12-18)
PROC: 0SG30AJ Fusion of Lumbosacral Joint with Interbody Fusion Device, Posterior Approach, Anterior Column, Open Approach (ICD-10-PCS; principal; 2018-12-18 07:30)
DX: M43.17 Spondylolisthesis, lumbosacral region (principal); F33.0 Major depressive disorder, recurrent, mild; I10 Essential (primary) hypertension; J45.909 Unspecified asthma, uncomplicated; K21.9 Gastro-esophageal reflux disease without esophagitis; F41.9 Anxiety disorder, unspecified; F17.210 Nicotine dependence, cigarettes, uncomplicated; M51.17 Intervertebral disc disorders with radiculopathy, lumbosacral region; M48.07 Spinal stenosis, lumbosacral region; Z82.49 Family history of ischemic heart disease and other diseases of the circulatory system; Z80.52 Family history of malignant neoplasm of bladder
CPT/HCPCS: 72100; 76000; A9270-GY; J0330; J0690; J1100; J1170; J1885; J2001; J2250; J2405; J2704; J3010

== ENCOUNTER 2018-12-22 05:46 | Emergency (ER) | payer OTHER ==
[2018-12-22] MEDS ORDERED: Lidocaine PATCH 5%* 1 PATCH TRANSDERM SCH (07:00)
[2018-12-22] MEDS ORDERED: DOXYcycline CAP(*) 100 MG PO ONE (07:37)
[2018-12-22] MEDS ORDERED: HYDROcodone/ACETAMIN 5-325 MG* 1 TAB PO ONE (07:39)
[2018-12-22 09:07] VITALS: BP 106/59
--- NOTE | 2018-12-22 09:16 | ED ---
Back Pain - HPI Summary HPI Summary: Patient is a 53-year-old female who presents to the ED with back pain. She had a L4/L5 spinal fusion surgery [address] Babcock[address] Since that time she has been having back pain and now since last night has had pain to the L buttocks radiating down the posterior leg without weakness. Denies B/B dysfunction. She's been taking methadone without relief of her symptoms. She states she has been taking more than her recommended dose and only has 6 left. She also sees Dr. Chin. - History of Current Complaint Chief Complaint: EDBackInjuryPain Stated Complaint: "BACK PROBLEM AFTER SURGERY" PER Time Seen by Provider: 12/22/18 05:55 Hx Obtained From: Patient, Family/Mobile Home Servicer Onset/Duration: Sudden Onset Onset/Duration: Started Hours Ago Timing: Constant Back Pain Location: Is Discrete @ - left buttocks radiating to the left posterior leg Pain Intensity: 10 Character: Sharp, Aching Aggravating Symptom(s): Movement Alleviating Symptom(s): Rest, Position Associated Signs And Symptoms: Positive: Weakness, Other - no weakness noted. Negative: Swelling, Redness, Bruising, Bladder Incontinence, Bowel Incontinence , Pain with Weight Bearing - Risk Factors Epidural Abscess Risk Factors: Negative - Allergies/Home Medications Allergies/Adverse Reactions: Allergies Allergy/AdvReac Type Severity Reaction Status Date / Time No Known Allergies Allergy Verified 12/22/18 05:51 Home Medications: Home Medications Methadone HCl 5 mg PO TID 12/22/18 [History Confirmed 12/22/18] PMH/Surg Hx/FS Hx/Imm Hx Previously Healthy: Yes Endocrine/Hematology History: Denies: Hx Diabetes Cardiovascular History: Reports: Hx Hypertension - ON CARTIA Denies: Hx Pacemaker/ICD, Other Cardiovascular Problems/Disorders Respiratory History: Reports: Hx Asthma - PT. HAD A COUGH WAS GIVEN AN INHALER , PT.NOT SURE SHE HAS ASTHMA Denies: Other Respiratory Problems/Disorders GI History: Reports: Other GI Disorders - HEARBURN History: Denies: Hx Renal Disease, Other Problems/Disorders Musculoskeletal History: Reports: Hx Arthritis - SPINE, Hx Bursitis - ELBOWS Sensory History: Reports: Hx Contacts or Glasses - READING GLASSES Denies: Hx Hearing Aid Opthamlomology History: Reports: Hx Contacts or Glasses - READING GLASSES Neurological History: Denies: Other Neuro Impairments/Disorders Psychiatric History: Reports: Hx Anxiety - NO MEDS, Hx Depression Denies: Hx Panic Disorder - Cancer History Hx Chemotherapy: No Hx Radiation Therapy: No - Surgical History Surgery Procedure, Year, and Place: 2007 D&C- [place]. 2015, CERVICAL POLYPS, [place]. UTERINE ABLATION Hx Anesthesia Reactions: No - Immunization History Hx Pertussis Vaccination: No Immunizations Up to Date: Yes Infectious Disease History: No Infectious Disease History: Denies: Hx Clostridium Difficile, Hx Hepatitis, Hx Human Immunodeficiency Virus (HIV), Hx of Known/Suspected MRSA, Hx Shingles, Hx Tuberculosis, History Other Infectious Disease, Traveled Outside the [place] in Last 30 Days - Family History Known Family History: Positive: Other - Bladder cancer in brother. Denies cardiac disease in family - Social History Occupation: Unemployed Lives: With Family Alcohol Use: Rare Alcohol Amount: 5 Hx Substance Use: Yes Substance Use Type: Reports: Marijuana Substance Use Comment - Amount & Last Used: 2 week -08/01/17 Hx Tobacco Use: Yes Smoking Status (MU): Former Smoker Type: Cigarettes Amount Used/How Often: 1 PPD FOR 30 YRS Length of Time of Smoking/Using Tobacco: 30 YRS Have You Smoked in the Last Year: Yes Review of Systems Negative: Fever, Chills, Fatigue, Skin Diaphoresis Negative: Palpitations, Chest Pain Negative: Shortness Of Breath, Cough Positive: see HPI. Negative: no symptoms reported Positive: Arthralgia - pain to the lower back as well as pain to the buttocks radiating down the L posterior leg, Myalgia Negative: Headache, Weakness, Paresthesia, Numbness All Other Systems Reviewed And Are Negative: Yes Physical Exam Triage Information Reviewed: Yes Vital Signs On Initial Exam: Initial Vitals Temp Pulse Resp BP Pulse Ox 97.4 F 77 18 142/73 98 12/22/18 05:49 12/22/18 05:49 12/22/18 05:49 12/22/18 05:49 12/22/18 05:49 Vital Signs Reviewed: Yes Appearance: Positive: Well-Appearing, Well-Nourished Skin: Positive: Warm, Skin Color Reflects Adequate Perfusion Head/Face: Positive: Normal Head/Face Inspection Eyes: Positive: EOMI, Conjunctiva Clear Neck: Positive: Supple, No Lymphadenopathy Respiratory/Lung Sounds: Positive: Clear to Auscultation, Breath Sounds Present Cardiovascular: Positive: RRR, Pulses are Symmetrical in both Upper and Lower Extremities Musculoskeletal: Positive: Pain @ - pain to the lower back as well as pain to the buttocks radiating down the L posterior leg Psychiatric: Positive: Normal, Affect/Mood Appropriate Diagnostics - Vital Signs Vital Signs Temp Pulse Resp BP Pulse Ox 12/22/18 08:30 61 106/59 90 12/22/18 08:00 61 114/57 95 12/22/18 07:52 65 99 12/22/18 07:50 64 134/61 97 12/22/18 06:30 64 105/53 94 12/22/18 05:49 97.4 F 77 18 142/73 98 - Laboratory Lab Statement: Any lab studies that have been ordered have been reviewed, and results considered in the medical decision making process. Back Pain Course/Dx - Course Course Of Treatment: On arrival into the ED, CT thoracic and lumbar spine obtained. This shows: Soft tissue swelling and foci of air within the posterior soft tissues. No large hematoma formation. Multiple airspace opacities in bilateral lungs may represent pneumonia in the proper clinical setting. Patient does endorse lying down 4 days and not using her incentive spirometer. She is dx with PNA and given steroids for sciatica. Discussed with Dr. Babcock who sees patient in the ED. Patient states she is feeling better, ambulating well to the restroom and is OK for DC home. She will f/u with Dr. Chin and Dr. Babcock as scheduled. - Diagnoses Differential Diagnosis/HQI/PQRI: Positive: Herniated Disc, Strain - sciatica, Sprain Provider Diagnoses: Sciatica, Pain at surgical site Discharge - Sign-Out/Discharge Documenting (check all that apply): Patient Departure Patient Received Moderate/Deep Sedation with Procedure: No - Discharge Plan Condition: Stable Disposition: HOME Prescriptions: Levofloxacin TAB* [Levaquin TAB*] 500 mg PO DAILY #4 tab predniSONE TAB* [Deltasone TAB*] 50 mg PO DAILY #5 tab MDD 1 Patient Education Materials: Pneumonia (ED) Referrals: Silvia Ricardo MD [Primary Care Provider] - Additional Instructions: Please follow up with your PCP as well as Dr. Babcock as needed You are diagnosed with sciatic pain Use heat and gentle stretches to the area Prednisone once daily x 5 days - take this medication in the morning only - start this today You may start the levaquin tomorrow morning for your pneumonia - Billing Disposition and Condition Condition: STABLE Disposition: Home
[2018-12-22] MEDS ORDERED: Lidocaine Patch REMOVE* 1 NOTE MISC PATCH OFF SCH (19:00)
== END 2018-12-22 09:14 | disposition home or self-care (01) ==
LOC: ED 05:46
DX: M54.42 Lumbago with sciatica, left side (principal); Z98.890 Other specified postprocedural states; I10 Essential (primary) hypertension; Z87.891 Personal history of nicotine dependence
CPT/HCPCS: 72128; 72131; 99282; A9270-GY

== ENCOUNTER 2019-08-15 11:36 | Emergency (ER) | payer OTHER ==
--- NOTE | 2019-08-15 11:55 | ED ---
Neck Pain - HPI Summary HPI Summary: This patient is a 53 year old female presenting to [facility] with a chief complaint of neck pain since 2 months ago. The patient states her range of motion is severely limited and she recently noticed swelling to the back on the head near the area of pain. She also states her pain has recently increased in severity. She states she take Aleve three times a day for her pain and it does not work. She states the pain is preventing her from sleeping. She rates her pain 10/10 in severity. She denies fever, weakness, numbness, and tingling. Medications reviewed, allergies noted. - History of Current Complaint Chief Complaint: EDNeckComplaint Stated Complaint: LUMP ON NECK PER PT Time Seen by Provider: 08/15/19 11:49 Hx Obtained From: Patient Onset/Duration Of Injury/Symptoms: Months Mechanism Of Injury: No Known Trauma Timing: Lasting Weeks Pain Intensity: 10 Pain Scale Used: 0-10 Numeric - Allergies/Home Medications Allergies/Adverse Reactions: Allergies Allergy/AdvReac Type Severity Reaction Status Date / Time No Known Allergies Allergy Verified 08/15/19 11:41 PMH/Surg Hx/FS Hx/Imm Hx Endocrine/Hematology History: Denies: Hx Diabetes Cardiovascular History: Reports: Hx Hypertension - ON CARTIA Denies: Hx Pacemaker/ICD, Other Cardiovascular Problems/Disorders Respiratory History: Reports: Hx Asthma - PT. HAD A COUGH WAS GIVEN AN INHALER , PT.NOT SURE SHE HAS ASTHMA Denies: Other Respiratory Problems/Disorders GI History: Reports: Other GI Disorders - HEARBURN History: Denies: Hx Renal Disease, Other Problems/Disorders Musculoskeletal History: Reports: Hx Arthritis - SPINE, Hx Bursitis - ELBOWS Sensory History: Reports: Hx Contacts or Glasses - READING GLASSES Denies: Hx Hearing Aid Opthamlomology History: Reports: Hx Contacts or Glasses - READING GLASSES Neurological History: Denies: Other Neuro Impairments/Disorders Psychiatric History: Reports: Hx Anxiety - NO MEDS, Hx Depression Denies: Hx Panic Disorder - Cancer History Hx Chemotherapy: No Hx Radiation Therapy: No - Surgical History Surgery Procedure, Year, and Place: 2006 [place] [facility] [place], CERVICAL POLYPS, [facility] [place]. UTERINE ABLATION Hx Anesthesia Reactions: No Infectious Disease History: No Infectious Disease History: Denies: Hx Clostridium Difficile, Hx Hepatitis, Hx Human Immunodeficiency Virus (HIV), Hx of Known/Suspected MRSA, Hx Shingles, Hx Tuberculosis, History Other Infectious Disease, Traveled Outside the [place] in Last 30 Days - Family History Known Family History: Positive: Other - Bladder cancer in brother. Denies cardiac disease in family - Social History Alcohol Use: Occasionally Alcohol Amount: 5 Hx Substance Use: Yes Substance Use Type: Reports: Marijuana Substance Use Comment - Amount & Last Used: 2 week -08/01/17 Hx Tobacco Use: Yes Smoking Status (MU): Current Every Day Smoker Type: Cigarettes Amount Used/How Often: 5 cigarettes/day Length of Time of Smoking/Using Tobacco: 30 YRS Have You Smoked in the Last Year: Yes Review of Systems Negative: Fever Positive: Other - Neck pain and swelling Negative: Weakness, Paresthesia, Numbness All Other Systems Reviewed And Are Negative: Yes Physical Exam - Summary Physical Exam Summary: Constitutional: Well-developed, Well-nourished, Alert. (-) Distressed Skin: Warm, Dry HENT: Normocephalic; Atraumatic Eyes: Conjunctiva normal Neck: Musculoskeletal ROM normal neck. (-) JVD, (-) Stridor, (-) Tracheal deviation Cardio: Rhythm regular, rate normal, Heart sounds normal; Intact distal pulses; Radial pulses are 2+ and symmetric. (-) Murmur Pulmonary/Chest wall: Effort normal. (-) Respiratory distress, (-) Wheezes, (-) Rales Abd: Soft, (-) tenderness, (-) Distension, (-) Guarding, (-) Rebound Musculoskeletal: (-) Edema. Tenderness over the right trapezius extending to the base of the skull. Limited ROM of the neck that is worse lateral adjacent to the left. Lymph: (-) Cervical adenopathy Neuro: Alert, Oriented x3 Psych: Mood and affect Normal Triage Information Reviewed: Yes Vital Signs On Initial Exam: Initial Vitals Temp Pulse Resp BP Pulse Ox 98.6 F 63 16 170/79 98 08/15/19 11:39 08/15/19 11:39 08/15/19 11:39 08/15/19 11:39 08/15/19 11:39 Vital Signs Reviewed: Yes Procedures - Sedation Patient Received Moderate/Deep Sedation with Procedure: No Diagnostics - Vital Signs Vital Signs Temp Pulse Resp BP Pulse Ox 08/15/19 11:39 98.6 F 63 16 170/79 98 - Laboratory Lab Statement: Any lab studies that have been ordered have been reviewed, and results considered in the medical decision making process. Neck Course/Dx - Course Course Of Treatment: Patient is here with 2 months of right-sided lateral neck pain. Patient has no red flag symptoms of neck pain. Patient's pain in her trapezius. Patient was started on Flexeril and a Medrol Dosepak. Patient is follow-up with her PCP in 2 days. - Diagnoses Provider Diagnoses: Neck pain Discharge ED - Sign-Out/Discharge Documenting (check all that apply): Patient Departure - Discharge - Discharge Plan Condition: Stable Disposition: HOME Prescriptions: Cyclobenzaprine TAB* [Flexeril 10 MG TAB*] 10 mg PO BID PRN #8 tab PRN Reason: muslce spasm methylPREDNISolone [Medrol Dosepak 4 MG*] 0 mg PO .SEE IMANI INSTRUCTION #1 imani Patient Education Materials: Neck Pain (ED) Referrals: Katherine Edwards DO [Primary Care Provider] - Additional Instructions: Keep taking Aleve as directed on the bottle, heat, bengay. Keep your follow-up appointments. Come back with any weakness in your arms. - Billing Disposition and Condition Condition: STABLE Disposition: Home - Attestation Statements Document Initiated by Scribe: Yes Documenting Scribe: Néstor Leyva Provider For Whom Delia is Documenting (Include Credential): Lee Orellana MD Scribe Attestation: Néstor Lerma, scribed for Lee Orellana MD on 08/15/19 at 1944. Scribe Documentation Reviewed: Yes Provider Attestation: The documentation as recorded by the Néstor munguia accurately reflects the service I personally performed and the decisions made by , Lee Orellana MD Status of Scribe Document: Viewed
[2019-08-15] MEDS ORDERED: Cyclobenzaprine TAB* 10 MG PO ONE (11:58)
[2019-08-15 12:21] VITALS: BP 131/62
== END 2019-08-15 12:23 | disposition home or self-care (01) ==
LOC: ED 11:36
DX: M54.2 Cervicalgia (principal); I10 Essential (primary) hypertension; F17.210 Nicotine dependence, cigarettes, uncomplicated; Z79.899 Other long term (current) drug therapy
CPT/HCPCS: 99281; A9270-GY

== ENCOUNTER 2019-12-09 07:24 | Emergency (ER) | payer OTHER ==
--- NOTE | 2019-12-09 07:47 | ED ---
Respiratory - HPI Summary HPI Summary: This patient is a 54 year old female presenting to [facility] with a chief complaint of respiratory illness since 3 days ago. She states cough, headache, bodyaches and nausea. She reports abdominal distension.and states normal BM. She states a Hx of asthma and she has an inhaler at home that she uses as needed. She denies vomiting and diarrhea. She rates her pain 10/10 in severity. She states she is on methadone. - History of Current Complaint Chief Complaint: EDUpperRespComplaint Stated Complaint: THINKS HAS PNEUMONIA PER PT Time Seen by Provider: 12/09/19 07:39 Hx Obtained From: Patient Onset/Duration: Lasting Days Pain Intensity: 10 Character: Cough (Nonproductive) - Allergy/Home Medications Allergies/Adverse Reactions: Allergies Allergy/AdvReac Type Severity Reaction Status Date / Time No Known Allergies Allergy Verified 12/09/19 07:29 Home Medications: Home Medications BuPROPion XL* [Bupropion XL*] 300 mg PO QAM 10/10/18 [History Confirmed 12/09/19 ] Pantoprazole TAB * [Protonix TAB*] 40 mg PO QAM 10/10/18 [History Confirmed 01/24] Sertraline* [Zoloft*] 150 mg PO QAM 10/10/18 [History Confirmed 12/09/19] dilTIAZem HCl [Cartia Xt] 120 mg PO QAM 10/10/18 [History Confirmed 12/09/19] Albuterol HFA INHALER* [Ventolin HFA Inhaler*] 2 puff INH Q4H PRN 12/03/18 [ History Confirmed 12/09/19] Methadone HCl 5 mg PO QID PRN 12/22/18 [History Confirmed 12/09/19] Naproxen Sodium [Aleve] 500 mg PO BID PRN 09/16/19 [History Confirmed 12/09/19] Cyclobenzaprine TAB* [Flexeril 10 MG TAB*] 10 mg PO BID PRN 12/01/19 [History Confirmed 12/09/19] PMH/Surg Hx/FS Hx/Imm Hx Endocrine/Hematology History: Denies: Hx Diabetes Cardiovascular History: Reports: Hx Hypertension - ON CARTIA Denies: Hx Pacemaker/ICD, Other Cardiovascular Problems/Disorders Respiratory History: Reports: Hx Asthma - PT. HAD A COUGH WAS GIVEN AN INHALER , PT.NOT SURE SHE HAS ASTHMA Denies: Other Respiratory Problems/Disorders GI History: Reports: Other GI Disorders - HEARBURN History: Denies: Hx Renal Disease, Other Problems/Disorders Musculoskeletal History: Reports: Hx Arthritis - SPINE, Hx Bursitis - ELBOWS Sensory History: Reports: Hx Contacts or Glasses - READING GLASSES Denies: Hx Hearing Aid Opthamlomology History: Reports: Hx Contacts or Glasses - READING GLASSES Neurological History: Denies: Other Neuro Impairments/Disorders Psychiatric History: Reports: Hx Anxiety - NO MEDS, Hx Depression Denies: Hx Panic Disorder - Cancer History Hx Chemotherapy: No Hx Radiation Therapy: No - Surgical History Surgery Procedure, Year, and Place: 2007 D&C- [facility] [place]. 2015, CERVICAL POLYPS, [facility] [place]. UTERINE ABLATION Hx Anesthesia Reactions: No Infectious Disease History: No Infectious Disease History: Denies: Hx Clostridium Difficile, Hx Hepatitis, Hx Human Immunodeficiency Virus (HIV), Hx of Known/Suspected MRSA, Hx Shingles, Hx Tuberculosis, History Other Infectious Disease, Traveled Outside the [place] in Last 30 Days - Family History Known Family History: Positive: Other - Bladder cancer in brother. Denies cardiac disease in family - Social History Alcohol Use: None Alcohol Amount: 5 Hx Substance Use: Yes Substance Use Type: Reports: None Substance Use Comment - Amount & Last Used: 2 week -08/01/17 Hx Tobacco Use: Yes Smoking Status (MU): Current Every Day Smoker Type: Cigarettes Amount Used/How Often: 5 cigarettes/day Length of Time of Smoking/Using Tobacco: 30 YRS Have You Smoked in the Last Year: Yes Review of Systems Positive: Other - Body aches Positive: Cough Positive: Nausea, Other - Abdominal distension . Negative: Vomiting, Diarrhea Positive: Headache All Other Systems Reviewed And Are Negative: Yes Physical Exam - Summary Physical Exam Summary: Constitutional: Well-developed, Well-nourished, Alert. (-) Distressed Skin: Warm, Dry HENT: Normocephalic; Atraumatic. Dry mucous membranes. Eyes: Conjunctiva normal Neck: Musculoskeletal ROM normal neck. (-) JVD, (-) Stridor, (-) Tracheal deviation Cardio: Rhythm regular, rate normal, Heart sounds normal; Intact distal pulses; The pedal pulses are 2+ and symmetric. Radial pulses are 2+ and symmetric. (-) Murmur Pulmonary/Chest wall: Effort normal. (-) Respiratory distress, Faint expiratory Wheezes during cough, (-) Rales Abd: Soft, (-) tenderness, (-) Distension, (-) Guarding, (-) Rebound Musculoskeletal: (-) Edema Lymph: (-) Cervical adenopathy Neuro: Alert, Oriented x3 Psych: Mood and affect Normal Triage Information Reviewed: Yes Vital Signs On Initial Exam: Initial Vitals Temp Pulse Resp BP Pulse Ox 98.7 F 89 18 152/92 95 12/09/19 07:27 12/09/19 07:27 12/09/19 07:27 12/09/19 07:27 12/09/19 07:27 Vital Signs Reviewed: Yes Procedures - Sedation Patient Received Moderate/Deep Sedation with Procedure: No Diagnostics - Vital Signs Vital Signs Temp Pulse Resp BP Pulse Ox 12/09/19 07:27 98.7 F 89 18 152/92 95 - Laboratory Lab Statement: Any lab studies that have been ordered have been reviewed, and results considered in the medical decision making process. - Radiology CXR Radiology Interpretation Completed By: Radiologist Summary of Radiographic Findings: No active pulmonary disease. ED Provider has reviewed this report. Disposition - Course Course Of Treatment: This patient is a 54 year old female presenting to [facility] with a chief complaint of respiratory illness since 3 days ago. She states cough , headache, bodyaches and nausea. She reports abdominal distension.and states normal BM. Physical exam reveals dry mucous membranes and faint expiratory wheezes with cough. Labs reveal Influenza A postive H. CXR was unremarkable. Patient administered duoneb and toradol. Plan for discharge was discuss with the patient and she was agreeable with this plan. - Diagnoses Provider Diagnoses: Influenza A Discharge ED - Sign-Out/Discharge Documenting (check all that apply): Patient Departure - Discharge - Discharge Plan Condition: Stable Disposition: HOME Patient Education Materials: Influenza (ED) Referrals: Katherine Edwards DO [Primary Care Provider] - 2 Days Additional Instructions: Return to ED with new or worsening symptoms. - Billing Disposition and Condition Condition: STABLE Disposition: Home - Attestation Statements Document Initiated by Scribe: Yes Documenting Scribe: Néstor Leyva Provider For Whom Scribe is Documenting (Include Credential): Herberth Lucia DO Scribe Attestation: Néstor Lerma, scribed for Herberth Lucia DO on 12/09/19 at 1430. Scribe Documentation Reviewed: Yes Provider Attestation: The documentation as recorded by the scribe, Néstor Leyva accurately reflects the service I personally performed and the decisions made by me, Herberth Lucia DO Status of Scribe Document: Viewed
[2019-12-09] MEDS ORDERED: Ketorolac *IM* INJ* 60 MG/2 ML VIAL IM ONE (07:53)
[2019-12-09] MEDS ORDERED: Albuterol/Ipratropium NEB.SOL* Albuterol 2.5 MG/Ipratropium 0.5 MG 3 ML INH ONE (07:54)
[2019-12-09 08:00] LABS: Influenza A Molecular POSITIVE (Negative)
[2019-12-09 09:34] VITALS: BP 124/75
== END 2019-12-09 09:34 | disposition home or self-care (01) ==
LOC: ED 07:24
DX: J10.1 Influenza due to other identified influenza virus with other respiratory manifestations (principal); I10 Essential (primary) hypertension; J45.909 Unspecified asthma, uncomplicated; F32.9 Major depressive disorder, single episode, unspecified; Z79.51 Long term (current) use of inhaled steroids; Z79.899 Other long term (current) drug therapy; F17.210 Nicotine dependence, cigarettes, uncomplicated
CPT/HCPCS: 71046; 96372; 99283; A9270-GY; J1885

== ENCOUNTER 2021-04-10 07:30 | Inpatient (IN) ==
[~2021-04-10 07:30] MED LIST changes: +Buffered Lidocaine 1% SYRIN 1 ml INTRADERM ONE; -Buffered Lidocaine 1% SYRIN* 1 ML/SYRINGE INTRADERM ONE; +GENTAMICIN ADULT IVPB ONE; +Lactated Ringers 1000 ml BAG 1,000 ML IV SCH; +Levalbuterol 0.63MG/3ML NEB UNIT OF USE INH ONE; +NS 0.9% IVPB ONE
[2021-04-10] MEDS ORDERED: Rocuronium 50 mg VIAL 10 mg/ml 5 ml VIAL (50 mg) ONE (08:29)
[2021-04-10] MEDS ORDERED: fentaNYL 250 mcg/5 ml 50 MCG/ML 5 ml VIAL (250 MCG) ONE (08:30)
[2021-04-10] MEDS ORDERED: Midazolam 2 mg/2 ml VIAL 1 mg/ml 2 ml VIAL (2 mg) ONE (08:30)
[2021-04-10] MEDS ORDERED: Propofol 10 MG/ML 20 ML BTL ONE (08:31)
[2021-04-10] MEDS ORDERED: Lidocaine 2% PF 5 ML VIAL ONE (08:31)
[2021-04-10] MEDS ORDERED: Levalbuterol 0.63MG/3ML NEB UNIT OF USE INH ONE (08:55)
[2021-04-10] MEDS ORDERED: Clindamycin 900 MG/D5W BAG 900 MG/50 ML BAG IVPB ONE (09:03)
[2021-04-10] MEDS ORDERED: Bupivacaine 0.5% SDV PF 30ML VIAL ONE (09:36)
[2021-04-10 09:53] LABS: Hematocrit 35 % (35-47); Hemoglobin 11.7 g/dL (12.0-16.0); Mean Corpuscular HGB Conc 34 g/dL (31-36); Mean Corpuscular Hemoglobin 27 pg (27-31); Mean Corpuscular Volume 81 fL (80-97); Mean Platelet Volume 7.7 fL (7.4-10.4); Platelet Count 426 10^3/uL (150-450); Red Blood Count 4.27 10^6 /uL (3.70-4.87); Red Cell Distribution Width 17 % (10-15); White Blood Count 8.9 10^3/uL (3.5-10.8)
[2021-04-10 10:08] LABS: Calcium 9.4 mg/dL (8.6-10.3); EGFR African American 97.4 (>60); EGFR Non-African American 80.5 (>60)
[2021-04-10] MEDS ORDERED: Heparin 5000 UNITS/ML 1 mL VIAL ONE (10:15)
[2021-04-10 11:16] LABS: Potassium 3.2 mmol/L (3.5-5.0)
[2021-04-10] MEDS ORDERED: HYDROmorphone 1 MG/1 ML SYRINGE IV PRN (11:40)
[2021-04-10] MEDS ORDERED: Naloxone 0.4 mg VIAL 0.4 mg/ml 1 ml VIAL IV PRN (11:40)
[2021-04-10] MEDS ORDERED: Acetaminophen IV 1 GM/100ML 100 ML IV ONE (13:21)
[2021-04-10] MEDS ORDERED: fentaNYL 100 mcg/2 ml 50 MCG/ML VIAL ONE (14:26)
[2021-04-10] MEDS: fentaNYL 100 mcg/2 ml 50 MCG/ML VIAL IV PRN ×2 (14:27→14:42)
[2021-04-10] MEDS: Lactated Ringers 1000 ml BAG 1,000 ML IV SCH (15:29)
[2021-04-10] MEDS ORDERED: FLUTICASONE FUROATE INH PRN (15:45)
[2021-04-10] MEDS ORDERED: Albuterol HFA INHALER 8 gm MDI INH PRN (15:58)
[2021-04-11] MEDS ORDERED: HYDROmorphone 1 MG/1 ML SYRINGE ONE (00:19)
[2021-04-11] MEDS ORDERED: HYDROmorphone 1 MG/1 ML SYRINGE IV SLOW PU PRN (00:20)
[2021-04-11] MEDS ORDERED: Mometasone 220 MCG MDI INH PRN (08:21)
[2021-04-11] MEDS: Lactated Ringers 1000 ml BAG 1,000 ML IV SCH (09:19)
[2021-04-11] MEDS: HYDROmorphone 0.5 MG/0.5 ML SYRINGE IV PRN ×2 (11:07→16:08)
[2021-04-11 16:11] VITALS: BP 120/58
== END 2021-04-11 18:39 | disposition home health service (06) | DRG 221 ==
LOC: AA 08:55 → SSU 15:27
PROVIDERS: ADMIT Surgery; ATTEND Surgery

== ENCOUNTER 2021-04-13 20:09 | Inpatient (IN) ==
[2021-04-13 22:01] LABS: ABS Basophils 0.1 10^3/ul (0-0.2); ABS Eosinophils 0.1 10^3/ul (0-0.6); ABS Lymphocytes 1.4 10^3/ul (1.0-4.8); ABS Neutrophils 9.9 10^3/ul (1.5-7.7); Hematocrit 26 % (35-47); Hemoglobin 8.6 g/dL (12.0-16.0); Lymphocyte % 11.2 %; Mean Corpuscular HGB Conc 33 g/dL (31-36); Mean Corpuscular Hemoglobin 27 pg (27-31); Mean Corpuscular Volume 81 fL (80-97); Mean Platelet Volume 7.3 fL (7.4-10.4); Platelet Count 338 10^3/uL (150-450); Red Blood Count 3.23 10^6 /uL (3.70-4.87); Red Cell Distribution Width 17 % (10-15); White Blood Count 12.5 10^3/uL (3.5-10.8)
[2021-04-13 22:04] LABS: PCO2 Arterial 25 mmHg (35-45); PO2 Arterial 151 mmHg (80-100)
[2021-04-13 22:15] LABS: Activated Partial Thrombo Time 33.1 seconds (26.0-38.0); INR 1.11 (0.86-1.15)
[2021-04-13 22:23] LABS: ALT 27 U/L (7-52); AST 31 U/L (13-39); Albumin 3.4 g/dL (3.2-5.2); Alkaline Phosphatase 133 U/L (35-149); Anion Gap 5 mmol/L (2-11); Blood Urea Nitrogen 7 mg/dL (6-24); C Reactive Protein 278.69 mg/L (<8.01); CO2 Carbon Dioxide 34 mmol/L (22-32); Calcium 8.6 mg/dL (8.6-10.3); Chloride 92 mmol/L (101-111); Creatine Kinase 264 U/L (10-223); EGFR African American 100.5 (>60); EGFR Non-African American 83.1 (>60); Globulin 3.3 g/dL (2-4); Glucose 124 mg/dL (70-100); Sodium 131 mmol/L (135-145); Total Protein 6.7 g/dL (6.4-8.9)
[2021-04-13 22:25] LABS: Urine Appearance Clear; Urine Bilirubin Negative (Negative); Urine Blood 1+ (Negative); Urine Color Yellow; Urine Glucose Negative (Negative); Urine Ketones Negative (Negative); Urine Nitrite Negative (Negative); Urine Protein Negative (Negative); Urine Specific Gravity 1.011 (1.002-1.030); Urine Urobilinogen Negative (Negative)
[2021-04-13 22:27] LABS: CKMB ng/mL 1.6 ng/mL (0.6-6.3)
[2021-04-13 22:30] LABS: Troponin I 0.14 ng/mL (<0.03)
[2021-04-13 22:34] LABS: Urine Bacteria Absent (Absent); Urine Red Blood Cell Trace(0-2/hpf) (Absent); Urine Squamous Epithelial Cell Present (Absent); Urine White Blood Cell Absent (Absent)
[2021-04-13] MEDS ORDERED: Potassium Chlor 20 meq TAB.ER PO ONE (23:31)
[2021-04-13] MEDS ORDERED: Azithromycin 500 mg/250 ml NS 500 MG/250 ML BAG IVPB ONE (23:40)
[2021-04-13] MEDS ORDERED: cefTRIAXone 1 gm/50 mL NS BAG 1 GM/50 ML BAG IV ONE (23:40)
[2021-04-13] MEDS ORDERED: NS 0.9% 1000 ml BAG 1,000 ML IV ONE (23:42)
[2021-04-14 00:11] LABS: Magnesium 1.7 mg/dL (1.9-2.7)
[2021-04-14 00:34] LABS: Corrected Retic Count 1.1 % (0.5-1.5); Hematocrit for Retic CNT 27 % (35-47); Immature Retic Fraction 0.44; RBC Retic Count 3.25 10^6/uL (3.70-4.87)
[2021-04-14 00:37] LABS: Influenza A Molecular Negative (Negative); Influenza B Molecular Negative (Negative)
[2021-04-14] MEDS ORDERED: Magnesium Sulfate IV 3 GM in NS 0.9% 100 ml BAG 100 ML IVPB ONE ×2 (00:38→08:00)
[2021-04-14] MEDS ORDERED: Iohexol 350 (CONTRAST) 500 ML MDV IV ONE (01:41)
[2021-04-14 06:59] LABS: ABS Basophils 0.1 10^3/ul (0-0.2); ABS Eosinophils 0.4 10^3/ul (0-0.6); ABS Lymphocytes 2.2 10^3/ul (1.0-4.8); ABS Neutrophils 9.3 10^3/ul (1.5-7.7); Eosinophil % 2.8 %; Hematocrit 27 % (35-47); Hemoglobin 8.9 g/dL (12.0-16.0); Mean Corpuscular HGB Conc 34 g/dL (31-36); Mean Corpuscular Hemoglobin 27 pg (27-31); Mean Corpuscular Volume 81 fL (80-97); Mean Platelet Volume 7.4 fL (7.4-10.4); Platelet Count 344 10^3/uL (150-450); Red Blood Count 3.27 10^6 /uL (3.70-4.87); Red Cell Distribution Width 17 % (10-15); White Blood Count 12.8 10^3/uL (3.5-10.8)
[2021-04-14 07:16] LABS: Anion Gap 6 mmol/L (2-11); Blood Urea Nitrogen 7 mg/dL (6-24); CO2 Carbon Dioxide 34 mmol/L (22-32); Calcium 9.1 mg/dL (8.6-10.3); Chloride 94 mmol/L (101-111); EGFR African American 121.4 (>60); EGFR Non-African American 100.3 (>60); Glucose 89 mg/dL (70-100); Magnesium 1.9 mg/dL (1.9-2.7); Sodium 134 mmol/L (135-145)
[2021-04-14 07:17] LABS: LDH 342 U/L (140-271); Total Iron Binding Capacity 339 mcg/dL (250-450); Transferrin 242 mg/dL (203-362)
[2021-04-14 07:36] LABS: Ferritin 98.5 ng/mL (11-307)
[2021-04-14 07:39] LABS: % Iron Saturation 6 % (15-55); Iron < 20 ug/dL (50-212); Troponin I 0.05 ng/mL (<0.03); Unsaturated Iron Binding < 324 ug/dL
[2021-04-14] MEDS ORDERED: cefTRIAXone 1 gm/50 mL NS BAG 1 GM/50 ML BAG IV ONE (08:00)
[2021-04-14] MEDS ORDERED: Potassium Chlor 20 meq TAB.ER PO ONE ×2 (08:00→15:13)
[2021-04-14] MEDS: Enoxaparin 40 MG/0.4 ML SYR SUBCUT SCH (08:49)
[2021-04-14] MEDS: DOXYcycline 100 MG in NS 0.9% 250 ml 250 ML IVPB SCH ×2 (12:51→20:18)
[2021-04-14 13:08] LABS: Troponin I 0.04 ng/mL (<0.03)
[2021-04-14] MEDS ORDERED: Perflutren Lipid Microsphere 3 ML VIAL ONE (13:57)
[2021-04-15 06:26] LABS: ABS Eosinophils 0.4 10^3/ul (0-0.6); ABS Lymphocytes 1.8 10^3/ul (1.0-4.8); ABS Monocytes 0.9 10^3/ul (0-0.8); ABS Neutrophils 6.9 10^3/ul (1.5-7.7); Eosinophil % 3.6 %; Hematocrit 25 % (35-47); Lymphocyte % 17.9 %; Mean Corpuscular HGB Conc 32 g/dL (31-36); Mean Corpuscular Hemoglobin 27 pg (27-31); Mean Corpuscular Volume 83 fL (80-97); Mean Platelet Volume 7.5 fL (7.4-10.4); Nucleated Red Blood Cells % 0.1; Platelet Count 324 10^3/uL (150-450); Red Blood Count 2.98 10^6 /uL (3.70-4.87); Red Cell Distribution Width 17 % (10-15)
[2021-04-15 06:53] LABS: Calcium 8.4 mg/dL (8.6-10.3); EGFR African American 145.5 (>60); EGFR Non-African American 120.2 (>60); Magnesium 2.1 mg/dL (1.9-2.7); Potassium 3.8 mmol/L (3.5-5.0)
[2021-04-15] MEDS: cefTRIAXone 1 gm/50 mL NS BAG 1 GM/50 ML BAG IVPB SCH (07:30)
[2021-04-15] MEDS: Enoxaparin 40 MG/0.4 ML SYR SUBCUT SCH (07:31)
[2021-04-15] MEDS: DOXYcycline 100 MG in NS 0.9% 250 ml 250 ML IVPB SCH ×2 (08:55→20:06)
[2021-04-15] MEDS ORDERED: cefTRIAXone 1 gm/50 mL NS BAG 1 GM/50 ML BAG IVPB SCH (11:00)
[2021-04-16 06:56] LABS: ABS Eosinophils 0.3 10^3/ul (0-0.6); ABS Lymphocytes 1.9 10^3/ul (1.0-4.8); ABS Monocytes 1.1 10^3/ul (0-0.8); ABS Neutrophils 6.7 10^3/ul (1.5-7.7); Eosinophil % 2.8 %; Hematocrit 23 % (35-47); Hemoglobin 7.7 g/dL (12.0-16.0); Lymphocyte % 18.9 %; Mean Corpuscular HGB Conc 34 g/dL (31-36); Mean Corpuscular Hemoglobin 27 pg (27-31); Mean Corpuscular Volume 81 fL (80-97); Mean Platelet Volume 6.9 fL (7.4-10.4); Platelet Count 378 10^3/uL (150-450); Red Blood Count 2.83 10^6 /uL (3.70-4.87); Red Cell Distribution Width 17 % (10-15)
[2021-04-16 07:12] LABS: Calcium 8.5 mg/dL (8.6-10.3); EGFR African American 145.5 (>60); EGFR Non-African American 120.2 (>60); Magnesium 1.8 mg/dL (1.9-2.7); Potassium 3.6 mmol/L (3.5-5.0)
[2021-04-16] MEDS: cefTRIAXone 1 gm/50 mL NS BAG 1 GM/50 ML BAG IVPB SCH (07:42)
[2021-04-16] MEDS: Enoxaparin 40 MG/0.4 ML SYR SUBCUT SCH (07:44)
[2021-04-16] MEDS: Albuterol HFA INHALER 8 gm MDI INH PRN (08:27)
[2021-04-16] MEDS: DOXYcycline 100 MG in NS 0.9% 250 ml 250 ML IVPB SCH ×2 (09:20→20:38)
[2021-04-16] MEDS ORDERED: Iodixanol (CONTRAST) 320 MG/ML 100 ML SDV IV ONE (14:43)
[2021-04-16] MEDS ORDERED: Lorazepam PYXIS KEY PRN (19:27)
[2021-04-16] MEDS ORDERED: LORazepam 2 mg VIAL 1 ml IV PUSH ONE (19:27)
[2021-04-16 19:39] LABS: ABS Eosinophils 0.2 10^3/ul (0-0.6); ABS Neutrophils 7.1 10^3/ul (1.5-7.7); Hematocrit 24 % (35-47); Hemoglobin 7.8 g/dL (12.0-16.0); Lymphocyte % 19.1 %; Mean Corpuscular HGB Conc 33 g/dL (31-36); Mean Corpuscular Hemoglobin 27 pg (27-31); Mean Corpuscular Volume 82 fL (80-97); Mean Platelet Volume 7.2 fL (7.4-10.4); Nucleated Red Blood Cells % 0.1; Platelet Count 412 10^3/uL (150-450); Red Blood Count 2.92 10^6 /uL (3.70-4.87); Red Cell Distribution Width 17 % (10-15); White Blood Count 10.3 10^3/uL (3.5-10.8)
[2021-04-17 06:48] LABS: ABS Eosinophils 0.3 10^3/ul (0-0.6); ABS Lymphocytes 1.6 10^3/ul (1.0-4.8); ABS Monocytes 1.1 10^3/ul (0-0.8); ABS Neutrophils 7.8 10^3/ul (1.5-7.7); Eosinophil % 2.7 %; Hematocrit 23 % (35-47); Hemoglobin 7.8 g/dL (12.0-16.0); Lymphocyte % 14.6 %; Mean Corpuscular HGB Conc 34 g/dL (31-36); Mean Corpuscular Hemoglobin 27 pg (27-31); Mean Corpuscular Volume 80 fL (80-97); Mean Platelet Volume 7.3 fL (7.4-10.4); Platelet Count 419 10^3/uL (150-450); Red Blood Count 2.89 10^6 /uL (3.70-4.87); Red Cell Distribution Width 17 % (10-15); White Blood Count 10.9 10^3/uL (3.5-10.8)
[2021-04-17 07:03] LABS: Calcium 8.8 mg/dL (8.6-10.3); EGFR African American 148.7 (>60); EGFR Non-African American 122.9 (>60); Potassium 3.3 mmol/L (3.5-5.0)
[2021-04-17] MEDS ORDERED: Potassium Chlor 10 meq TAB PO ONE (08:16)
[2021-04-17 08:40] LABS: Magnesium 1.7 mg/dL (1.9-2.7)
[2021-04-17] MEDS ORDERED: Magnesium Sulfate 2 gm BAG 2 GM/50 ML BAG IVPB ONE (09:34)
[2021-04-17] MEDS: DOXYcycline 100 MG in NS 0.9% 250 ml 250 ML IVPB SCH ×2 (10:26→21:45)
[2021-04-17] MEDS: cefTRIAXone 1 gm/50 mL NS BAG 1 GM/50 ML BAG IVPB SCH (11:40)
[2021-04-17] MEDS ORDERED: Calcium Carb (TUMS) 500 mg CHEW TAB PO ONE ×2 (12:07→22:14)
[2021-04-17] MEDS: Albuterol HFA INHALER 8 gm MDI INH PRN (12:17)
[2021-04-17] MEDS ORDERED: LORazepam 2 mg VIAL 1 ml IV PUSH ONE (14:18)
[2021-04-17] MEDS ORDERED: Lorazepam PYXIS KEY PRN (14:18)
[2021-04-17 18:52] LABS: ABS Eosinophils 0.4 10^3/ul (0-0.6); ABS Lymphocytes 1.9 10^3/ul (1.0-4.8); ABS Monocytes 0.9 10^3/ul (0-0.8); ABS Neutrophils 8.2 10^3/ul (1.5-7.7); Eosinophil % 3.6 %; Hematocrit 23 % (35-47); Hemoglobin 7.6 g/dL (12.0-16.0); Lymphocyte % 16.9 %; Mean Corpuscular HGB Conc 33 g/dL (31-36); Mean Corpuscular Hemoglobin 27 pg (27-31); Mean Corpuscular Volume 80 fL (80-97); Mean Platelet Volume 6.7 fL (7.4-10.4); Nucleated Red Blood Cells % 0.1; Platelet Count 444 10^3/uL (150-450); Red Blood Count 2.86 10^6 /uL (3.70-4.87); Red Cell Distribution Width 17 % (10-15); White Blood Count 11.5 10^3/uL (3.5-10.8)
[2021-04-17 19:01] LABS: Activated Partial Thrombo Time 34.7 seconds (26.0-38.0); INR 1.3 (0.86-1.15)
[2021-04-17 19:07] LABS: Blood Urea Nitrogen 8 mg/dL (6-24); EGFR African American 142.4 (>60); EGFR Non-African American 117.6 (>60)
[2021-04-17] MEDS: Mometasone/Formoter 100/5 MDI INH SCH (19:51)
[2021-04-17] MEDS: Heparin 5000 UNITS/ML 1 mL VIAL SUBCUT SCH (21:34)
[2021-04-17 22:40] LABS: Salicylate < 2.50 mg/dL (<30)
[2021-04-18] MEDS: Heparin 5000 UNITS/ML 1 mL VIAL SUBCUT SCH ×3 (05:57→20:26)
[2021-04-18 06:03] LABS: ABS Basophils 0.1 10^3/ul (0-0.2); ABS Eosinophils 0.5 10^3/ul (0-0.6); ABS Lymphocytes 1.8 10^3/ul (1.0-4.8); ABS Monocytes 1.2 10^3/ul (0-0.8); ABS Neutrophils 9.6 10^3/ul (1.5-7.7); Corrected Retic Count 0.6 % (0.5-1.5); Eosinophil % 4.1 %; Hematocrit 23 % (35-47); Hematocrit for Retic CNT 23 % (35-47); Hemoglobin 7.5 g/dL (12.0-16.0); Immature Retic Fraction 0.44; Lymphocyte % 13.6 %; Mean Corpuscular HGB Conc 33 g/dL (31-36); Mean Corpuscular Hemoglobin 26 pg (27-31); Mean Corpuscular Volume 80 fL (80-97); Mean Platelet Volume 6.8 fL (7.4-10.4); Platelet Count 470 10^3/uL (150-450); RBC Retic Count 2.85 10^6/uL (3.70-4.87); Red Blood Count 2.85 10^6 /uL (3.70-4.87); Red Cell Distribution Width 17 % (10-15); White Blood Count 13.2 10^3/uL (3.5-10.8)
[2021-04-18 06:23] LABS: Activated Partial Thrombo Time 33.3 seconds (26.0-38.0); Fibrinogen 705.4 mg/dL (110.8-404.3); INR 1.34 (0.86-1.15)
[2021-04-18 06:32] LABS: C Reactive Protein 279.16 mg/L (<8.01); Calcium 8.5 mg/dL (8.6-10.3); EGFR African American 155.6 (>60); EGFR Non-African American 128.6 (>60); Potassium 3.5 mmol/L (3.5-5.0)
[2021-04-18] MEDS: Mometasone/Formoter 100/5 MDI INH SCH ×3 (06:54→19:11)
[2021-04-18] MEDS: SPIRIVA Respimat (tiotropium) 2.5 mcg/inh Inhaler INH SCH ×2 (06:54→11:06)
[2021-04-18] MEDS: DOXYcycline 100 MG in NS 0.9% 250 ml 250 ML IVPB SCH (07:32)
[2021-04-18] MEDS: cefTRIAXone 2 GM ADDV.VIAL 2 GM in NS 0.9% 100 ml BAG 100 ML IV SCH (10:59)
[2021-04-18] MEDS: Albuterol HFA INHALER 8 gm MDI INH PRN (15:00)
[2021-04-18 17:54] LABS: Urine Appearance Clear; Urine Bilirubin Negative (Negative); Urine Blood Negative (Negative); Urine Color Straw; Urine Glucose Negative (Negative); Urine Ketones Negative (Negative); Urine Nitrite Negative (Negative); Urine Protein Negative (Negative); Urine Specific Gravity 1.005 (1.002-1.030); Urine Urobilinogen Negative (Negative)
[2021-04-18] MEDS ORDERED: Furosemide 40 mg/4 ml IV VIAL IV ONE (18:32)
[2021-04-19] MEDS ORDERED: Albuterol/Ipratropium NEB.SOL (2.5/0.5 MG) 3 ML NEB.SOLN INH ONE (00:06)
[2021-04-19 00:26] LABS: PCO2 Arterial 39 mmHg (35-45); PO2 Arterial 90 mmHg (80-100)
[2021-04-19] MEDS: Albuterol/Ipratropium NEB.SOL (2.5/0.5 MG) 3 ML NEB.SOLN INH SCH ×4 (01:26→19:34)
[2021-04-19 01:52] LABS: ABS Eosinophils 0.2 10^3/ul (0-0.6); ABS Monocytes 1.3 10^3/ul (0-0.8); ABS Neutrophils 13.8 10^3/ul (1.5-7.7); Hematocrit 24 % (35-47); Hemoglobin 7.7 g/dL (12.0-16.0); Lymphocyte % 11.5 %; Mean Corpuscular HGB Conc 33 g/dL (31-36); Mean Corpuscular Hemoglobin 26 pg (27-31); Mean Corpuscular Volume 81 fL (80-97); Mean Platelet Volume 6.9 fL (7.4-10.4); Nucleated Red Blood Cells % 0.1; Platelet Count 546 10^3/uL (150-450); Red Blood Count 2.94 10^6 /uL (3.70-4.87); Red Cell Distribution Width 17 % (10-15); White Blood Count 17.3 10^3/uL (3.5-10.8)
[2021-04-19 02:08] LABS: Anion Gap 8 mmol/L (2-11); Blood Urea Nitrogen 6 mg/dL (6-24); CO2 Carbon Dioxide 29 mmol/L (22-32); Calcium 8.8 mg/dL (8.6-10.3); Chloride 98 mmol/L (101-111); EGFR African American 152.1 (>60); EGFR Non-African American 125.7 (>60); Glucose 117 mg/dL (70-100); Magnesium 1.7 mg/dL (1.9-2.7); Phosphorus 3.4 mg/dL (2.5-5.0); Potassium 3.2 mmol/L (3.5-5.0); Sodium 135 mmol/L (135-145)
[2021-04-19] MEDS ORDERED: Magnesium Sulfate IV 3 GM in NS 0.9% 100 ml BAG 100 ML IVPB ONE (02:12)
[2021-04-19 02:15] LABS: Troponin I 0.03 ng/mL (<0.03)
[2021-04-19 02:53] LABS: Hepatitis C Antibody Negative (Negative)
[2021-04-19] MEDS: KCL 20 MEQ/100 ML IVPREMIX 20 MEQ/100 ML BAG IV SCH ×2 (02:55→05:18)
[2021-04-19 03:43] LABS: Rheumatoid Factor 16 IU/mL (<15)
[2021-04-19] MEDS ORDERED: Buffered Lidocaine 1% SYRIN 1 ml INTRADERM ONE (05:44)
[2021-04-19] MEDS ORDERED: Potassium Chlor 20 meq TAB.ER PO ONE (05:54)
[2021-04-19] MEDS ORDERED: SODIUM CHLORIDE 0.9% INTRADERM ONE (06:00)
[2021-04-19] MEDS ORDERED: HYALURONIDASE HUMAN INTRADERM ONE (06:00)
[2021-04-19] MEDS: Mometasone/Formoter 100/5 MDI INH SCH ×2 (09:36→19:34)
[2021-04-19] MEDS: SPIRIVA Respimat (tiotropium) 2.5 mcg/inh Inhaler INH SCH (09:37)
[2021-04-19] MEDS: cefTRIAXone 2 GM ADDV.VIAL 2 GM in NS 0.9% 100 ml BAG 100 ML IV SCH (09:56)
[2021-04-19] MEDS ORDERED: Midazolam 5 mg/5 ml VIAL 1 mg/ml 5 ml VIAL (5 mg) ONE (10:48)
[2021-04-19] MEDS ORDERED: fentaNYL 250 mcg/5 ml 50 MCG/ML 5 ml VIAL (250 MCG) ONE (10:48)
[2021-04-19] MEDS ORDERED: Benzocaine/Butamben/Tetracain (CETACAINE - SINGLE USE) 5 gm TOPICAL ONE (10:53)
[2021-04-19] MEDS ORDERED: Naloxone 0.4 mg VIAL 0.4 mg/ml 1 ml VIAL ONE (11:21)
[2021-04-19] MEDS ORDERED: Flumazenil 0.5 mg/5 ml 0.1 MG/ML 5 ml VIAL ONE (11:21)
[2021-04-19] MEDS ORDERED: Lidocaine 1% VIAL 10 MG/ML VIAL ONE (11:22)
[2021-04-19] MEDS ORDERED: Midazolam 10 mg/10 ml VIAL 1 mg/ml 10 ml VIAL (10 mg) ONE (11:41)
[2021-04-19] MEDS ORDERED: Piperacillin/Tazobac ADVAN 3.375 GM in NS 0.9% 100 ml BAG 100 ML IV ONE (12:17)
[2021-04-19] MEDS ORDERED: Zosyn per Pharmacy NOTE FOLLOW UP SCH (13:00)
[2021-04-19] MEDS: methylPREDNISolone 125 mg 2 ML VIAL IV SCH ×2 (13:21→20:23)
[2021-04-19] MEDS: ZOSYN 3.375 GM Q8H per EXTENDED INFUSION IV SCH (15:53)
[2021-04-19] MEDS: Enoxaparin 40 MG/0.4 ML SYR SUBCUT SCH (15:53)
[2021-04-19] MEDS: Saline FLUSH-CENTRAL 10 ML SYRINGE CENT\\PICC SCH (22:25)
[2021-04-20] MEDS: ZOSYN 3.375 GM Q8H per EXTENDED INFUSION IV SCH ×3 (00:13→15:40)
[2021-04-20] MEDS: Albuterol/Ipratropium NEB.SOL (2.5/0.5 MG) 3 ML NEB.SOLN INH SCH ×4 (02:15→19:41)
[2021-04-20 04:42] LABS: Hematocrit 24 % (35-47); Hemoglobin 7.8 g/dL (12.0-16.0); Mean Corpuscular HGB Conc 33 g/dL (31-36); Mean Corpuscular Hemoglobin 27 pg (27-31); Mean Corpuscular Volume 80 fL (80-97); Mean Platelet Volume 7.4 fL (7.4-10.4); Platelet Count 570 10^3/uL (150-450); Red Blood Count 2.96 10^6 /uL (3.70-4.87); Red Cell Distribution Width 18 % (10-15); White Blood Count 14.9 10^3/uL (3.5-10.8)
[2021-04-20 04:47] LABS: ABS Lymphocytes 1.1 10^3/ul (1.0-4.8); ABS Monocytes 0.7 10^3/ul (0-0.8); ABS Neutrophils 13.1 10^3/ul (1.5-7.7); Lymphocyte % 7.2 %
[2021-04-20 04:58] LABS: Calcium 8.9 mg/dL (8.6-10.3); EGFR African American 159.2 (>60); EGFR Non-African American 131.6 (>60); Magnesium 2.3 mg/dL (1.9-2.7); Phosphorus 3.2 mg/dL (2.5-5.0); Potassium 4.1 mmol/L (3.5-5.0)
[2021-04-20] MEDS: methylPREDNISolone 125 mg 2 ML VIAL IV SCH ×2 (05:31→17:53)
[2021-04-20] MEDS: SPIRIVA Respimat (tiotropium) 2.5 mcg/inh Inhaler INH SCH (07:29)
[2021-04-20] MEDS: Mometasone/Formoter 100/5 MDI INH SCH ×2 (07:29→19:41)
[2021-04-20] MEDS: Benzocaine/Menthol LOZ PO PRN ×2 (08:19→11:51)
[2021-04-20] MEDS: Saline FLUSH-CENTRAL 10 ML SYRINGE CENT\\PICC SCH ×2 (10:43→21:03)
[2021-04-20] MEDS ORDERED: methylPREDNISolone 125 mg 2 ML VIAL IV SCH (12:00)
[2021-04-20] MEDS: Enoxaparin 40 MG/0.4 ML SYR SUBCUT SCH (14:25)
[2021-04-20] MEDS: DOXYcycline 100 MG in NS 0.9% 250 ml 250 ML IVPB SCH (20:28)
[2021-04-20] MEDS ORDERED: Labetalol IV 5 MG/ML 20 ml VIAL IV PUSH PRN (21:35)
[2021-04-20 23:33] LABS: Adenovirus Undetected (Undetected); Bordetella parapertussis Undetected (Undetected); Bordetella pertussis Undetected (Undetected); Chlamydophila pneumoniae Undetected (Undetected); Coronavirus 229E Undetected (Undetected); Coronavirus HKU1 Undetected (Undetected); Coronavirus NL63 Undetected (Undetected); Coronavirus OC43 Undetected (Undetected); Human Metapneumovirus Undetected (Undetected); Human Rhinovirus/Enterovirus Undetected (Undetected); Influenza A Undetected (Undetected); Influenza B Undetected (Undetected); Mycoplasmoides pneumoniae Undetected (Undetected); Parainfluenza Virus 1 Undetected (Undetected); Parainfluenza Virus 2 Undetected (Undetected); Parainfluenza Virus 3 Undetected (Undetected); Parainfluenza Virus 4 Undetected (Undetected); Respiratory Syncytial Virus Undetected (Undetected); Specimen Source NASOPHARYNGEAL SWAB
[2021-04-21] MEDS: ZOSYN 3.375 GM Q8H per EXTENDED INFUSION IV SCH ×3 (00:41→16:07)
[2021-04-21] MEDS ORDERED: Furosemide 40 mg/4 ml IV VIAL IV SLOW PU ONE (00:49)
[2021-04-21] MEDS: Albuterol/Ipratropium NEB.SOL (2.5/0.5 MG) 3 ML NEB.SOLN INH SCH ×4 (00:51→18:59)
[2021-04-21] MEDS: methylPREDNISolone 125 mg 2 ML VIAL IV SCH ×3 (01:51→18:03)
[2021-04-21 03:58] LABS: Urine Appearance Clear; Urine Bilirubin Negative (Negative); Urine Blood Negative (Negative); Urine Color Colorless; Urine Glucose Negative (Negative); Urine Ketones Negative (Negative); Urine Nitrite Negative (Negative); Urine Protein Negative (Negative); Urine Specific Gravity 1.004 (1.002-1.030); Urine Urobilinogen Negative (Negative)
[2021-04-21 06:24] LABS: Hematocrit 27 % (35-47); Hemoglobin 8.7 g/dL (12.0-16.0); Mean Corpuscular HGB Conc 32 g/dL (31-36); Mean Corpuscular Hemoglobin 26 pg (27-31); Mean Corpuscular Volume 80 fL (80-97); Mean Platelet Volume 7.3 fL (7.4-10.4); Platelet Count 728 10^3/uL (150-450); Red Cell Distribution Width 18 % (10-15); White Blood Count 23.5 10^3/uL (3.5-10.8)
[2021-04-21 06:29] LABS: Calcium 9.1 mg/dL (8.6-10.3); EGFR African American 142.4 (>60); EGFR Non-African American 117.6 (>60); Magnesium 1.9 mg/dL (1.9-2.7); Phosphorus 3.5 mg/dL (2.5-5.0); Potassium 3.5 mmol/L (3.5-5.0)
[2021-04-21] MEDS ORDERED: Potassium Chlor 20 meq TAB.ER PO ONE (06:37)
[2021-04-21] MEDS: SPIRIVA Respimat (tiotropium) 2.5 mcg/inh Inhaler INH SCH ×2 (06:50→09:09)
[2021-04-21] MEDS: Mometasone/Formoter 100/5 MDI INH SCH ×3 (06:52→18:59)
[2021-04-21 06:55] LABS: ABS Basophils 0.1 10^3/ul (0-0.2); ABS Lymphocytes 1.5 10^3/ul (1.0-4.8); ABS Monocytes 1.1 10^3/ul (0-0.8); ABS Neutrophils 20.8 10^3/ul (1.5-7.7); Lymphocyte % 6.2 %; Nucleated Red Blood Cells % 0.1
[2021-04-21 07:35] LABS: PCO2 Arterial 37 mmHg (35-45); PO2 Arterial 98 mmHg (80-100)
[2021-04-21] MEDS: Saline FLUSH-CENTRAL 10 ML SYRINGE CENT\\PICC SCH ×2 (08:05→22:08)
[2021-04-21] MEDS: Magnesium Sulfate IV 1GM/100ML 1 GM/100 ML BAG IV ONE ×2 (08:10→09:20)
[2021-04-21] MEDS ORDERED: Furosemide 40 mg/4 ml IV VIAL IV ONE (10:20)
[2021-04-21] MEDS: DOXYcycline 100 MG in NS 0.9% 250 ml 250 ML IVPB SCH ×2 (10:34→10:56)
[2021-04-21] MEDS ORDERED: Phenol 1.4% Throat Spray 177 ml BTL MT PRN (10:40)
[2021-04-21] MEDS: Oxymetazoline 0.05% NASAL SPR 15 ML BTL LEFT NARE SCH ×2 (10:56→21:58)
[2021-04-21] MEDS: Enoxaparin 40 MG/0.4 ML SYR SUBCUT SCH (15:31)
[2021-04-22] MEDS: ZOSYN 3.375 GM Q8H per EXTENDED INFUSION IV SCH ×3 (00:18→16:30)
[2021-04-22] MEDS: methylPREDNISolone 125 mg 2 ML VIAL IV SCH ×3 (02:31→17:59)
[2021-04-22] MEDS: Albuterol/Ipratropium NEB.SOL (2.5/0.5 MG) 3 ML NEB.SOLN INH SCH ×4 (06:37→19:05)
[2021-04-22] MEDS: SPIRIVA Respimat (tiotropium) 2.5 mcg/inh Inhaler INH SCH (07:19)
[2021-04-22] MEDS: Mometasone/Formoter 100/5 MDI INH SCH ×2 (07:20→19:06)
[2021-04-22] MEDS: Oxymetazoline 0.05% NASAL SPR 15 ML BTL LEFT NARE SCH ×2 (08:21→20:04)
[2021-04-22 10:22] LABS: Hematocrit 30 % (35-47); Hemoglobin 9.6 g/dL (12.0-16.0); Mean Corpuscular HGB Conc 33 g/dL (31-36); Mean Corpuscular Hemoglobin 26 pg (27-31); Mean Corpuscular Volume 80 fL (80-97); Mean Platelet Volume 7.1 fL (7.4-10.4); Platelet Count 807 10^3/uL (150-450); Red Blood Count 3.71 10^6 /uL (3.70-4.87); Red Cell Distribution Width 18 % (10-15); White Blood Count 20.1 10^3/uL (3.5-10.8)
[2021-04-22 10:37] LABS: Calcium 9.2 mg/dL (8.6-10.3); EGFR African American 126.1 (>60); EGFR Non-African American 104.2 (>60); Magnesium 2.1 mg/dL (1.9-2.7); Potassium 3.6 mmol/L (3.5-5.0)
[2021-04-22 11:12] LABS: C Reactive Protein 97.24 mg/L (<8.01)
[2021-04-22] MEDS: Saline FLUSH-CENTRAL 10 ML SYRINGE CENT\\PICC SCH (11:21)
[2021-04-22 12:09] LABS: ABS Lymphocytes 2.3 10^3/ul (1.0-4.8); ABS Monocytes 1.2 10^3/ul (0-0.8); ABS Neutrophils 16.5 10^3/ul (1.5-7.7); Eosinophil % 0.1 %; Lymphocyte % 11.5 %; Nucleated Red Blood Cells % 0.2
[2021-04-22] MEDS: Enoxaparin 40 MG/0.4 ML SYR SUBCUT SCH (14:24)
[2021-04-22] MEDS: Calcium Carb (TUMS) 500 mg CHEW TAB PO SCH (19:58)
[2021-04-23] MEDS: ZOSYN 3.375 GM Q8H per EXTENDED INFUSION IV SCH ×4 (00:27→23:53)
[2021-04-23] MEDS: Saline FLUSH-CENTRAL 10 ML SYRINGE CENT\\PICC SCH ×3 (00:28→23:56)
[2021-04-23] MEDS: Albuterol/Ipratropium NEB.SOL (2.5/0.5 MG) 3 ML NEB.SOLN INH SCH ×4 (01:16→19:49)
[2021-04-23] MEDS: methylPREDNISolone 125 mg 2 ML VIAL IV SCH ×3 (01:52→17:55)
[2021-04-23 06:33] LABS: Hematocrit 30 % (35-47); Hemoglobin 9.8 g/dL (12.0-16.0); Mean Corpuscular HGB Conc 33 g/dL (31-36); Mean Corpuscular Hemoglobin 26 pg (27-31); Mean Corpuscular Volume 79 fL (80-97); Mean Platelet Volume 7.3 fL (7.4-10.4); Platelet Count 730 10^3/uL (150-450); Red Cell Distribution Width 18 % (10-15); White Blood Count 17.8 10^3/uL (3.5-10.8)
[2021-04-23 06:49] LABS: Calcium 8.7 mg/dL (8.6-10.3); Potassium 4.4 mmol/L (3.5-5.0); Total Bilirubin 0.3 mg/dL (0.2-1.0)
[2021-04-23 06:55] LABS: Albumin/Globulin Ratio 0.9 (1-3); EGFR African American 123.7 (>60); EGFR Non-African American 102.2 (>60); Globulin 3.2 g/dL (2-4); Total Protein 6.2 g/dL (6.4-8.9)
[2021-04-23 07:00] LABS: ABS Basophils 0.1 10^3/ul (0-0.2); ABS Lymphocytes 2.1 10^3/ul (1.0-4.8); ABS Neutrophils 14.5 10^3/ul (1.5-7.7); Lymphocyte % 11.9 %; Nucleated Red Blood Cells % 0.2
[2021-04-23] MEDS: SPIRIVA Respimat (tiotropium) 2.5 mcg/inh Inhaler INH SCH (07:16)
[2021-04-23] MEDS: Mometasone/Formoter 100/5 MDI INH SCH ×2 (07:16→19:49)
[2021-04-23] MEDS: Oxymetazoline 0.05% NASAL SPR 15 ML BTL LEFT NARE SCH ×3 (07:37→20:17)
[2021-04-23] MEDS: Calcium Carb (TUMS) 500 mg CHEW TAB PO SCH ×2 (13:46→20:16)
[2021-04-23] MEDS: Enoxaparin 40 MG/0.4 ML SYR SUBCUT SCH (15:31)
[2021-04-24] MEDS: methylPREDNISolone 125 mg 2 ML VIAL IV SCH ×3 (01:28→17:00)
[2021-04-24] MEDS: Albuterol/Ipratropium NEB.SOL (2.5/0.5 MG) 3 ML NEB.SOLN INH SCH ×4 (02:47→19:21)
[2021-04-24 05:12] LABS: Hematocrit 32 % (35-47); Hemoglobin 10.5 g/dL (12.0-16.0); Mean Corpuscular HGB Conc 33 g/dL (31-36); Mean Corpuscular Hemoglobin 26 pg (27-31); Mean Corpuscular Volume 79 fL (80-97); Mean Platelet Volume 7.4 fL (7.4-10.4); Platelet Count 791 10^3/uL (150-450); Red Blood Count 4.01 10^6 /uL (3.70-4.87); Red Cell Distribution Width 18 % (10-15); White Blood Count 20.7 10^3/uL (3.5-10.8)
[2021-04-24 05:29] LABS: Calcium 9.5 mg/dL (8.6-10.3); EGFR Non-African American 91.7 (>60); Phosphorus 3.5 mg/dL (2.5-5.0)
[2021-04-24 05:43] LABS: TSH Ultra Thyroid Stim Horm 0.86 mcIU/mL (0.34-5.60)
[2021-04-24 06:13] LABS: ABS Neutrophils 17.7 10^3/ul (1.5-7.7); Anisocytosis 1+; Lymphocyte % 9.5 %; Microcytosis 1+; Nucleated Red Blood Cells % 0.2; Polychromasia 1+
[2021-04-24] MEDS: Mometasone/Formoter 100/5 MDI INH SCH ×3 (06:54→19:21)
[2021-04-24] MEDS: SPIRIVA Respimat (tiotropium) 2.5 mcg/inh Inhaler INH SCH ×2 (06:55→07:03)
[2021-04-24] MEDS: Calcium Carb (TUMS) 500 mg CHEW TAB PO SCH ×2 (09:01→20:24)
[2021-04-24] MEDS: ZOSYN 3.375 GM Q8H per EXTENDED INFUSION IV SCH ×2 (09:02→17:00)
[2021-04-24] MEDS: Saline FLUSH-CENTRAL 10 ML SYRINGE CENT\\PICC SCH ×2 (11:24→23:49)
[2021-04-24] MEDS: Enoxaparin 40 MG/0.4 ML SYR SUBCUT SCH (13:59)
[2021-04-24] MEDS: Saline NASAL SPRAY 0.65% BTL BOTH NARES PRN (17:30)
[2021-04-25] MEDS: ZOSYN 3.375 GM Q8H per EXTENDED INFUSION IV SCH ×3 (00:04→15:18)
[2021-04-25] MEDS: Albuterol/Ipratropium NEB.SOL (2.5/0.5 MG) 3 ML NEB.SOLN INH SCH ×3 (01:13→12:43)
[2021-04-25] MEDS: methylPREDNISolone 125 mg 2 ML VIAL IV SCH ×3 (02:17→16:51)
[2021-04-25 06:52] LABS: Hematocrit 34 % (35-47); Hemoglobin 10.8 g/dL (12.0-16.0); Mean Corpuscular HGB Conc 32 g/dL (31-36); Mean Corpuscular Hemoglobin 26 pg (27-31); Mean Corpuscular Volume 80 fL (80-97); Mean Platelet Volume 7.5 fL (7.4-10.4); Platelet Count 761 10^3/uL (150-450); Red Cell Distribution Width 18 % (10-15); White Blood Count 22.3 10^3/uL (3.5-10.8)
[2021-04-25 07:06] LABS: Calcium 9.4 mg/dL (8.6-10.3); Potassium 4.4 mmol/L (3.5-5.0)
[2021-04-25 07:12] LABS: EGFR Non-African American 91.7 (>60)
[2021-04-25 07:33] LABS: ABS Basophils 0.1 10^3/ul (0-0.2); ABS Lymphocytes 2.2 10^3/ul (1.0-4.8); ABS Monocytes 1.1 10^3/ul (0-0.8); ABS Neutrophils 18.9 10^3/ul (1.5-7.7); Eosinophil % 0.1 %; Nucleated Red Blood Cells % 0.1
[2021-04-25] MEDS: Calcium Carb (TUMS) 500 mg CHEW TAB PO SCH ×2 (08:28→22:06)
[2021-04-25] MEDS: SPIRIVA Respimat (tiotropium) 2.5 mcg/inh Inhaler INH SCH ×2 (08:57→12:43)
[2021-04-25] MEDS: Mometasone/Formoter 100/5 MDI INH SCH ×3 (08:57→21:15)
[2021-04-25] MEDS: Saline FLUSH-CENTRAL 10 ML SYRINGE CENT\\PICC SCH ×2 (09:14→22:05)
[2021-04-25] MEDS ORDERED: Albuterol/Ipratropium NEB.SOL (2.5/0.5 MG) 3 ML NEB.SOLN INH PRN (12:48)
[2021-04-25] MEDS: Enoxaparin 40 MG/0.4 ML SYR SUBCUT SCH (13:57)
[2021-04-25 18:38] LABS: Cyclic Citrullinated Pept IgG <15.6 U
[2021-04-26] MEDS: ZOSYN 3.375 GM Q8H per EXTENDED INFUSION IV SCH ×2 (00:12→08:40)
[2021-04-26] MEDS: methylPREDNISolone 125 mg 2 ML VIAL IV SCH ×4 (02:23→23:57)
[2021-04-26 05:02] LABS: Hematocrit 34 % (35-47); Hemoglobin 10.8 g/dL (12.0-16.0); Mean Corpuscular HGB Conc 32 g/dL (31-36); Mean Corpuscular Hemoglobin 26 pg (27-31); Mean Corpuscular Volume 81 fL (80-97); Mean Platelet Volume 7.3 fL (7.4-10.4); Platelet Count 824 10^3/uL (150-450); Red Blood Count 4.25 10^6 /uL (3.70-4.87); Red Cell Distribution Width 18 % (10-15); White Blood Count 25.2 10^3/uL (3.5-10.8)
[2021-04-26 07:01] LABS: ABS Basophils 0.1 10^3/ul (0-0.2); ABS Eosinophils 0.1 10^3/ul (0-0.6); ABS Lymphocytes 2.1 10^3/ul (1.0-4.8); ABS Monocytes 1.4 10^3/ul (0-0.8); ABS Neutrophils 21.5 10^3/ul (1.5-7.7); Eosinophil % 0.2 %; Lymphocyte % 8.3 %; Nucleated Red Blood Cells % 0.1
[2021-04-26] MEDS: Calcium Carb (TUMS) 500 mg CHEW TAB PO SCH (08:31)
[2021-04-26] MEDS ORDERED: Furosemide 20 mg/2 ml IV VIAL IV SLOW PU ONE (08:31)
[2021-04-26] MEDS: Saline NASAL SPRAY 0.65% BTL BOTH NARES PRN (08:38)
[2021-04-26] MEDS: Saline FLUSH-CENTRAL 10 ML SYRINGE CENT\\PICC SCH ×2 (10:24→22:13)
[2021-04-26] MEDS ORDERED: methylPREDNISolone 125 mg 2 ML VIAL IV SCH (10:30)
[2021-04-26] MEDS: Mometasone/Formoter 100/5 MDI INH SCH ×2 (11:30→19:09)
[2021-04-26] MEDS: SPIRIVA Respimat (tiotropium) 2.5 mcg/inh Inhaler INH SCH (11:30)
[2021-04-26] MEDS: Acetylcysteine 600mgCAP(RENAL) PO SCH ×2 (11:38→20:12)
[2021-04-26] MEDS: Enoxaparin 40 MG/0.4 ML SYR SUBCUT SCH (13:04)
[2021-04-26] MEDS: Calcium Carb (TUMS) 500 mg CHEW TAB PO PRN (16:00)
[2021-04-27 04:56] LABS: Hematocrit 37 % (35-47); Hemoglobin 11.6 g/dL (12.0-16.0); Mean Corpuscular HGB Conc 32 g/dL (31-36); Mean Corpuscular Hemoglobin 26 pg (27-31); Mean Corpuscular Volume 81 fL (80-97); Mean Platelet Volume 7.6 fL (7.4-10.4); Platelet Count 780 10^3/uL (150-450); Red Blood Count 4.54 10^6 /uL (3.70-4.87); Red Cell Distribution Width 19 % (10-15)
[2021-04-27 05:11] LABS: CO2 Carbon Dioxide 26 mmol/L (22-32); Calcium 9.7 mg/dL (8.6-10.3); Chloride 96 mmol/L (101-111); Magnesium 2.1 mg/dL (1.9-2.7); Sodium 133 mmol/L (135-145)
[2021-04-27 05:17] LABS: Blood Urea Nitrogen 26 mg/dL (6-24); EGFR African American 105.5 (>60); EGFR Non-African American 87.2 (>60); Glucose 121 mg/dL (70-100); Phosphorus 3.4 mg/dL (2.5-5.0)
[2021-04-27 05:27] LABS: Anion Gap 11 mmol/L (2-11)
[2021-04-27 06:06] LABS: RBC Morphology Normal (Normal)
[2021-04-27 06:07] LABS: Anisocytosis 1+
[2021-04-27 06:09] LABS: ABS Eosinophils 0.1 10^3/ul (0-0.6); ABS Lymphocytes 2.4 10^3/ul (1.0-4.8); ABS Monocytes 1.2 10^3/ul (0-0.8); ABS Neutrophils 22.3 10^3/ul (1.5-7.7); Eosinophil % 0.3 %; Lymphocyte % 9.2 %; Nucleated Red Blood Cells % 0.1
[2021-04-27] MEDS: Acetylcysteine 600mgCAP(RENAL) PO SCH ×2 (08:09→21:43)
[2021-04-27] MEDS: methylPREDNISolone 125 mg 2 ML VIAL IV SCH ×2 (08:10→15:09)
[2021-04-27] MEDS: SPIRIVA Respimat (tiotropium) 2.5 mcg/inh Inhaler INH SCH (10:25)
[2021-04-27] MEDS: Mometasone/Formoter 100/5 MDI INH SCH ×2 (10:26→19:18)
[2021-04-27] MEDS: Saline FLUSH-CENTRAL 10 ML SYRINGE CENT\\PICC SCH (10:28)
[2021-04-27] MEDS ORDERED: Lidocaine 4% TOPICAL 50 ML TOP.SOLN TOPICAL PRN (15:06)
[2021-04-27] MEDS: Enoxaparin 40 MG/0.4 ML SYR SUBCUT SCH (15:09)
[2021-04-27] MEDS ORDERED: Lidocaine 4% GEL 10 GM TUBE TOPICAL PRN (17:29)
[2021-04-27] MEDS: Calcium Carb (TUMS) 500 mg CHEW TAB PO PRN (21:47)
[2021-04-28] MEDS: Calcium Carb (TUMS) 500 mg CHEW TAB PO PRN ×2 (02:38→17:54)
[2021-04-28] MEDS: Saline FLUSH-CENTRAL 10 ML SYRINGE CENT\\PICC SCH ×2 (02:38→10:56)
[2021-04-28] MEDS: methylPREDNISolone 125 mg 2 ML VIAL IV SCH ×2 (02:38→08:04)
[2021-04-28] MEDS: Acetylcysteine 600mgCAP(RENAL) PO SCH ×2 (08:04→21:10)
[2021-04-28] MEDS: Mometasone/Formoter 100/5 MDI INH SCH ×2 (10:10→21:10)
[2021-04-28] MEDS: SPIRIVA Respimat (tiotropium) 2.5 mcg/inh Inhaler INH SCH (10:10)
[2021-04-28] MEDS: Enoxaparin 40 MG/0.4 ML SYR SUBCUT SCH (15:14)
[2021-04-29] MEDS: Saline FLUSH-CENTRAL 10 ML SYRINGE CENT\\PICC SCH ×3 (00:32→23:00)
[2021-04-29] MEDS: SPIRIVA Respimat (tiotropium) 2.5 mcg/inh Inhaler INH SCH (08:14)
[2021-04-29] MEDS: Mometasone/Formoter 100/5 MDI INH SCH ×2 (08:14→19:54)
[2021-04-29] MEDS ORDERED: Magnesium Hydroxide LIQ 30 ML UDC PO PRN (08:34)
[2021-04-29] MEDS ORDERED: Senna TAB 8.6 mg TAB PO PRN (08:34)
[2021-04-29] MEDS: Acetylcysteine 600mgCAP(RENAL) PO SCH ×2 (09:19→20:30)
[2021-04-29] MEDS: Enoxaparin 40 MG/0.4 ML SYR SUBCUT SCH (15:15)
[2021-04-30 06:05] LABS: Hematocrit 36 % (35-47); Hemoglobin 11.2 g/dL (12.0-16.0); Mean Corpuscular HGB Conc 32 g/dL (31-36); Mean Corpuscular Hemoglobin 26 pg (27-31); Mean Corpuscular Volume 81 fL (80-97); Mean Platelet Volume 7.7 fL (7.4-10.4); Platelet Count 659 10^3/uL (150-450); Red Cell Distribution Width 18 % (10-15); White Blood Count 28.2 10^3/uL (3.5-10.8)
[2021-04-30 06:27] LABS: Calcium 9.5 mg/dL (8.6-10.3); EGFR African American 126.1 (>60); EGFR Non-African American 104.2 (>60); Potassium 3.2 mmol/L (3.5-5.0)
[2021-04-30 06:54] LABS: Anisocytosis 1+
[2021-04-30 06:55] LABS: Basophilic Stippling 1+; Polychromasia 1+
[2021-04-30 06:56] LABS: ABS Eosinophils 0.4 10^3/ul (0-0.6); ABS Lymphocytes 5.9 10^3/ul (1.0-4.8); ABS Monocytes 2.2 10^3/ul (0-0.8); ABS Neutrophils 19.7 10^3/ul (1.5-7.7); ABS Nucleated RBC 0.1 10^3/ul; Eosinophil % 1.4 %; Lymphocyte % 20.8 %; Nucleated Red Blood Cells % 0.2
[2021-04-30] MEDS: SPIRIVA Respimat (tiotropium) 2.5 mcg/inh Inhaler INH SCH (07:30)
[2021-04-30] MEDS: Mometasone/Formoter 100/5 MDI INH SCH ×2 (07:31→19:30)
[2021-04-30] MEDS: Potassium Chlor 20 meq TAB.ER PO SCH ×2 (08:25→20:23)
[2021-04-30] MEDS: Acetylcysteine 600mgCAP(RENAL) PO SCH ×2 (08:26→20:22)
[2021-04-30] MEDS: Saline FLUSH-CENTRAL 10 ML SYRINGE CENT\\PICC SCH ×2 (12:07→22:47)
[2021-04-30] MEDS: Enoxaparin 40 MG/0.4 ML SYR SUBCUT SCH (13:55)
[2021-04-30] MEDS: Calcium Carb (TUMS) 500 mg CHEW TAB PO PRN (17:12)
[2021-05-01] MEDS: Mometasone/Formoter 100/5 MDI INH SCH ×2 (07:35→19:48)
[2021-05-01] MEDS: SPIRIVA Respimat (tiotropium) 2.5 mcg/inh Inhaler INH SCH (07:36)
[2021-05-01] MEDS: Acetylcysteine 600mgCAP(RENAL) PO SCH ×2 (08:56→19:57)
[2021-05-01] MEDS: Potassium Chlor 20 meq TAB.ER PO SCH (08:56)
[2021-05-01] MEDS: Enoxaparin 40 MG/0.4 ML SYR SUBCUT SCH (15:21)
[2021-05-01 16:06] LABS: Calcium 9.1 mg/dL (8.6-10.3); EGFR Non-African American 91.7 (>60); Potassium 4.2 mmol/L (3.5-5.0)
[2021-05-01] MEDS: Saline FLUSH-CENTRAL 10 ML SYRINGE CENT\\PICC SCH (18:41)
[2021-05-02] MEDS: Saline FLUSH-CENTRAL 10 ML SYRINGE CENT\\PICC SCH ×2 (00:29→13:46)
[2021-05-02] MEDS: SPIRIVA Respimat (tiotropium) 2.5 mcg/inh Inhaler INH SCH (07:14)
[2021-05-02] MEDS: Mometasone/Formoter 100/5 MDI INH SCH ×2 (07:14→20:12)
[2021-05-02] MEDS: Acetylcysteine 600mgCAP(RENAL) PO SCH ×2 (09:30→20:45)
[2021-05-02] MEDS: Enoxaparin 40 MG/0.4 ML SYR SUBCUT SCH (13:45)
[2021-05-02] MEDS ORDERED: Furosemide 20 mg/2 ml IV VIAL IV ONE (16:24)
[2021-05-03] MEDS: Saline FLUSH-CENTRAL 10 ML SYRINGE CENT\\PICC SCH (00:15)
[2021-05-03] MEDS: SPIRIVA Respimat (tiotropium) 2.5 mcg/inh Inhaler INH SCH (07:35)
[2021-05-03] MEDS: Mometasone/Formoter 100/5 MDI INH SCH (07:35)
[2021-05-03] MEDS: Acetylcysteine 600mgCAP(RENAL) PO SCH (08:52)
[2021-05-03 13:47] VITALS: BP 119/50
== END 2021-05-03 16:19 | disposition home health service (06) | DRG 720 ==
LOC: MEDTELE 20:09 → MED 20:09 → ED 20:09 → MED 04-14 06:23 → ICU 04-19 00:51 → MEDTELE 04-28 17:04
PROVIDERS: ADMIT Internal Medicine; ATTEND Hospitalist

== ENCOUNTER 2021-06-21 17:11 | Inpatient (IN) ==
[2021-06-21] MEDS ORDERED: NS 0.9% 1000 ml BAG 3,000 ML IV ONE (17:21)
[2021-06-21] MEDS ORDERED: Albuterol HFA INHALER 8 gm MDI INH ONE (17:23)
[2021-06-21] MEDS ORDERED: methylPREDNISolone 125 mg 2 ML VIAL IV ONE (17:23)
[2021-06-21] MEDS ORDERED: Piperacillin/Tazobac ADVAN 3.375 GM in NS 0.9% 100 ml BAG 100 ML IVPB ONE (17:23)
[2021-06-21 17:53] LABS: PCO2 Arterial 47 mmHg (35-45); PO2 Arterial 62 mmHg (80-100)
[2021-06-21] MEDS ORDERED: Norepinephrine 16MCG/ML IVPRE 4,000 MCG/250 ML BAG IV SCH (18:00)
[2021-06-21] MEDS ORDERED: Vancomycin 1,000 MG - ED ONCE IVPB ONE (18:00)
[2021-06-21] MEDS ORDERED: Vancomycin 1,000 MG in NS 0.9% 250 ml 250 ML IVPB SCH (18:00)
[2021-06-21 18:08] LABS: Rapid COVID-19 Molecular Undetected (Undetected)
[2021-06-21 18:11] LABS: Hematocrit 34 % (35-47); Hemoglobin 10.7 g/dL (12.0-16.0); Mean Corpuscular HGB Conc 32 g/dL (31-36); Mean Corpuscular Hemoglobin 27 pg (27-31); Mean Corpuscular Volume 86 fL (80-97); Mean Platelet Volume 7.2 fL (7.4-10.4); Platelet Count 253 10^3/uL (150-450); Red Blood Count 3.93 10^6 /uL (3.70-4.87); Red Cell Distribution Width 22 % (10-15); White Blood Count 14.2 10^3/uL (3.5-10.8)
[2021-06-21 18:15] LABS: Albumin 3.4 g/dL (3.2-5.2); CO2 Carbon Dioxide 26 mmol/L (22-32); Chloride 92 mmol/L (101-111); Sodium 129 mmol/L (135-145)
[2021-06-21 18:20] LABS: ALT 10 U/L (7-52); Albumin/Globulin Ratio 1.3 (1-3); Alkaline Phosphatase 91 U/L (35-149); Blood Urea Nitrogen 20 mg/dL (6-24); C Reactive Protein 400.52 mg/L (<8.01); EGFR African American 87.9 (>60); EGFR Non-African American 72.6 (>60); Globulin 2.7 g/dL (2-4); Glucose 86 mg/dL (70-100); Total Protein 6.1 g/dL (6.4-8.9)
[2021-06-21] MEDS ORDERED: Iohexol 350 (CONTRAST) 500 ML MDV IV ONE (18:34)
[2021-06-21 18:37] LABS: RBC Morphology Normal (Normal)
[2021-06-21 18:38] LABS: ABS Lymphocytes 0.7 10^3/ul (1.0-4.8); ABS Monocytes 1.2 10^3/ul (0-0.8); ABS Neutrophils 12.2 10^3/ul (1.5-7.7); Eosinophil % 0.1 %; Lymphocyte % 5.1 %
[2021-06-21 18:41] LABS: Troponin I 0.01 ng/mL (<0.03)
[2021-06-21 18:44] LABS: Anion Gap 11 mmol/L (2-11)
[2021-06-21 19:15] LABS: Urine Appearance Clear; Urine Bilirubin Negative (Negative); Urine Blood 1+ (Negative); Urine Color Yellow; Urine Glucose Negative (Negative); Urine Ketones Negative (Negative); Urine Nitrite Negative (Negative); Urine Protein Negative (Negative); Urine Specific Gravity 1.014 (1.002-1.030); Urine Urobilinogen Negative (Negative)
[2021-06-21 19:19] LABS: Urine Amorphous Crystals Present (Absent); Urine Bacteria Absent (Absent); Urine Red Blood Cell 2+(6-10/hpf) (Absent); Urine Squamous Epithelial Cell Present (Absent); Urine White Blood Cell Trace(0-5/hpf) (Absent)
[2021-06-21 20:14] LABS: Potassium Redraw 3.6 mmol/L (3.5-5.0)
[2021-06-21] MEDS ORDERED: Albuterol 2.5mg/3 ml (0.083%) NEB.SOLN INH PRN (21:23)
[2021-06-21] MEDS ORDERED: Albuterol HFA INHALER 8 gm MDI INH PRN (21:23)
[2021-06-21 21:45] LABS: PCO2 Arterial 50 mmHg (35-45); PO2 Arterial 86 mmHg (80-100)
[2021-06-21] MEDS ORDERED: Lactated Ringers 1000 ml BAG 1,000 ML IV SCH (22:00)
[2021-06-21] MEDS: Enoxaparin 40 MG/0.4 ML SYR SUBCUT SCH (22:34)
[2021-06-21] MEDS: Cefepime 2 GM in Dextrose 2 GM/50 ML BAG IV SCH (23:13)
[2021-06-22] MEDS ORDERED: Vancomycin per Pharmacy 1 EA NOTE FOLLOW UP SCH (02:00)
[2021-06-22] MEDS ORDERED: Lactated Ringers 1000 ml BAG 1,000 ML IV SCH (02:00)
[2021-06-22] MEDS: Morphine 2 MG/ML SYRINGE IV ONE ×2 (02:38→05:40)
[2021-06-22 02:49] LABS: Influenza A Molecular Negative (Negative); Influenza B Molecular Negative (Negative)
[2021-06-22] MEDS: Vancomycin 1000 MG in NS 0.9% 250 ML IVPB SCH ×3 (05:46→21:12)
[2021-06-22 06:34] LABS: Hematocrit 31 % (35-47); Hemoglobin 10.2 g/dL (12.0-16.0); Mean Corpuscular HGB Conc 33 g/dL (31-36); Mean Corpuscular Hemoglobin 28 pg (27-31); Mean Corpuscular Volume 85 fL (80-97); Mean Platelet Volume 7.3 fL (7.4-10.4); Platelet Count 257 10^3/uL (150-450); Red Blood Count 3.64 10^6 /uL (3.70-4.87); Red Cell Distribution Width 22 % (10-15); White Blood Count 16.9 10^3/uL (3.5-10.8)
[2021-06-22 06:45] LABS: ABS Lymphocytes 0.6 10^3/ul (1.0-4.8); ABS Neutrophils 15.3 10^3/ul (1.5-7.7); Lymphocyte % 3.5 %
[2021-06-22 06:54] LABS: Calcium 8.5 mg/dL (8.6-10.3); EGFR African American 128.5 (>60); EGFR Non-African American 106.2 (>60); Potassium 3.6 mmol/L (3.5-5.0)
[2021-06-22 07:21] LABS: RBC Morphology Normal (Normal)
[2021-06-22 08:09] LABS: Magnesium 1.9 mg/dL (1.9-2.7)
[2021-06-22 09:05] LABS: PCO2 Arterial 49 mmHg (35-45); PO2 Arterial 72 mmHg (80-100)
[2021-06-22] MEDS: Albuterol/Ipratropium NEB.SOL (2.5/0.5 MG) 3 ML NEB.SOLN INH PRN (09:15)
[2021-06-22 09:32] LABS: Activated Partial Thrombo Time 35.3 seconds (26.0-38.0); INR 1.41 (0.86-1.15)
[2021-06-22] MEDS: Acetaminophen IV 1 GM/100ML 100 ML IV PRN (09:48)
[2021-06-22] MEDS: methylPREDNISolone SOD 40 mg/ml 1 ml VIAL IV SCH ×2 (09:49→21:19)
[2021-06-22 11:16] LABS: TSH Ultra Thyroid Stim Horm 0.72 mcIU/mL (0.34-5.60)
[2021-06-22] MEDS: Cefepime 2 GM in Dextrose 2 GM/50 ML BAG IV SCH ×2 (12:03→23:51)
[2021-06-22] MEDS ORDERED: Morphine 2 MG/ML SYRINGE IV PRN (17:59)
[2021-06-22] MEDS ORDERED: NS 0.9% 1000 ml BAG 1,000 ML IV SCH (18:30)
[2021-06-22] MEDS ORDERED: Lidocaine PATCH 5% PATCH TRANSDERM SCH (18:30)
[2021-06-22] MEDS: Lidocaine PATCH 5% PATCH TRANSDERM SCH (21:11)
[2021-06-22] MEDS: Enoxaparin 40 MG/0.4 ML SYR SUBCUT SCH (21:14)
[2021-06-23] MEDS: Vancomycin 1000 MG in NS 0.9% 250 ML IVPB SCH ×3 (07:11→20:42)
[2021-06-23] MEDS ORDERED: Lidocaine Patch REMOVE PATCH PATCH OFF ONE (08:45)
[2021-06-23] MEDS: methylPREDNISolone SOD 40 mg/ml 1 ml VIAL IV SCH ×2 (08:53→20:41)
[2021-06-23] MEDS: Lidocaine PATCH 5% PATCH TRANSDERM SCH ×2 (09:02→09:17)
[2021-06-23] MEDS: Lidocaine Patch REMOVE PATCH PATCH OFF SCH ×2 (09:02→21:11)
[2021-06-23] MEDS: Acetaminophen IV 1 GM/100ML 100 ML IV PRN (09:15)
[2021-06-23] MEDS: Cefepime 2 GM in Dextrose 2 GM/50 ML BAG IV SCH ×2 (11:55→22:51)
[2021-06-23] MEDS ORDERED: Vancomycin Trough Check NOTE FOLLOW UP ONE (12:00)
[2021-06-23 13:25] LABS: Calcium 8.5 mg/dL (8.6-10.3); EGFR African American 128.5 (>60); EGFR Non-African American 106.2 (>60); Phosphorus 1.8 mg/dL (2.5-5.0); Potassium 3.5 mmol/L (3.5-5.0)
[2021-06-23 14:05] LABS: Vancomycin Trough 17.9 mcg/mL
[2021-06-23] MEDS: Enoxaparin 40 MG/0.4 ML SYR SUBCUT SCH (21:11)
[2021-06-24] MEDS: Albuterol/Ipratropium NEB.SOL (2.5/0.5 MG) 3 ML NEB.SOLN INH PRN ×2 (01:58→12:26)
[2021-06-24] MEDS: Acetaminophen IV 1 GM/100ML 100 ML IV PRN (05:14)
[2021-06-24] MEDS: Vancomycin 1000 MG in NS 0.9% 250 ML IVPB SCH ×2 (05:27→13:28)
[2021-06-24 06:15] LABS: EGFR African American 152.1 (>60); EGFR Non-African American 125.7 (>60); Potassium 3.4 mmol/L (3.5-5.0)
[2021-06-24] MEDS ORDERED: Potassium Chlor 20 meq TAB.ER PO ONE (07:23)
[2021-06-24 08:22] LABS: Phosphorus 2.8 mg/dL (2.5-5.0)
[2021-06-24] MEDS: methylPREDNISolone SOD 40 mg/ml 1 ml VIAL IV SCH (08:55)
[2021-06-24] MEDS: Lidocaine PATCH 5% PATCH TRANSDERM SCH (08:57)
[2021-06-24] MEDS ORDERED: LORazepam 2 mg VIAL 1 ml IV PUSH ONE (09:04)
[2021-06-24] MEDS ORDERED: Lorazepam PYXIS KEY PRN (09:04)
[2021-06-24] MEDS ORDERED: Lorazepam PYXIS KEY ONE ×2 (09:50→12:07)
[2021-06-24 10:02] LABS: Hematocrit 30 % (35-47); Hemoglobin 9.3 g/dL (12.0-16.0); Mean Corpuscular HGB Conc 31 g/dL (31-36); Mean Corpuscular Hemoglobin 27 pg (27-31); Mean Corpuscular Volume 89 fL (80-97); Mean Platelet Volume 7.5 fL (7.4-10.4); Nucleated Red Blood Cells % 0.2; Platelet Count 275 10^3/uL (150-450); Red Blood Count 3.41 10^6 /uL (3.70-4.87); Red Cell Distribution Width 23 % (10-15); White Blood Count 18.9 10^3/uL (3.5-10.8)
[2021-06-24 10:51] LABS: Anisocytosis 2+; Hypochromasia 1+
[2021-06-24 10:55] LABS: ABS Lymphocytes 0.8 10^3/ul (1.0-4.8); ABS Monocytes 0.8 10^3/ul (0-0.8); ABS Neutrophils 17.3 10^3/ul (1.5-7.7); Eosinophil % 0.2 %; Lymphocyte % 4.2 %
[2021-06-24] MEDS ORDERED: DOXYcycline 100 MG in NS 0.9% 250 ml 250 ML IVPB SCH (11:00)
[2021-06-24 11:14] LABS: C Reactive Protein 305.15 mg/L (<8.01)
[2021-06-24] MEDS ORDERED: LORazepam 2 mg VIAL 1 ml ONE (12:07)
[2021-06-24] MEDS: LORazepam 2 mg VIAL 1 ml IV PUSH PRN ×2 (12:08→17:22)
[2021-06-24] MEDS ORDERED: Senna TAB 8.6 mg TAB PO PRN (15:41)
[2021-06-24 18:12] LABS: PCO2 Arterial 51 mmHg (35-45); PO2 Arterial 80 mmHg (80-100)
[2021-06-24] MEDS: Albuterol/Ipratropium NEB.SOL (2.5/0.5 MG) 3 ML NEB.SOLN INH SCH ×2 (18:30→18:45)
[2021-06-24] MEDS ORDERED: Rocuronium 50 mg VIAL 10 mg/ml 5 ml VIAL (50 mg) ONE (18:43)
[2021-06-24] MEDS ORDERED: Succinylcholine 200 mg VIAL 20 mg/ml 10 ml VIAL (200 mg) ONE (18:43)
[2021-06-24] MEDS ORDERED: Dexmedetomidine 1,000 MCG in NS 0.9% 250 ml 240 ML IV SCH (19:00)
[2021-06-24] MEDS ORDERED: EPINEPHrine,Rac 2.25% NEB.SOL 0.5 ML ONE (19:20)
[2021-06-24] MEDS ORDERED: Propofol 10 mg/ml 100 ML BTL 100 ML ONE (19:21)
[2021-06-24] MEDS ORDERED: Midazolam 10 mg/10 ml VIAL 1 mg/ml 10 ml VIAL (10 mg) ONE (19:21)
[2021-06-24] MEDS ORDERED: EPINEPHrine SYR 0.1MG/ML 10 ml SYRINGE ONE ×6 (19:21→20:57)
[2021-06-24] MEDS ORDERED: Norepinephrine 16MCG/ML IVPRE 4,000 MCG/250 ML BAG IV ONE (20:00)
[2021-06-24] MEDS ORDERED: Atropine 0.1 MG/ML 10 ml SYR (1 mg) ONE ×2 (20:06→20:08)
[2021-06-24] MEDS ORDERED: Norepinephrine 16MCG/ML IVPRE (4 MG/250 ML) in NS 0.9% IV ONE ×2 (20:25→20:57)
[2021-06-24] MEDS ORDERED: NS 0.9% ONE ×2 (20:25→20:57)
[2021-06-24] MEDS ORDERED: Polyethylene Glycol 3350 17 GM PACKET PO SCH (21:00)
[2021-06-25 01:05] VITALS: BP 43/16
[2021-06-26] MEDS ORDERED: Vancomycin Trough Check NOTE FOLLOW UP ONE (12:00)
[2021-06-27 18:57] LABS: Anaplasma phagocytophilum Negative (Negative); B. miyamotoi PCR, B Negative (Negative); Babesia divergens/MO-1 Negative (Negative); Babesia ducani Negative (Negative); Ehrlichia chaffeensis Negative (Negative); Ehrlichia ewingii/canis Negative (Negative); Ehrlichia muris eauclairensis Negative (Negative)
== END 2021-06-24 20:59 | disposition expired | DRG 720 ==
LOC: ED 17:11 → SUATTDRO 21:49 → ICU 21:49
PROVIDERS: ADMIT Internal Medicine; ATTEND Internal Medicine